=== PATIENT | female | born 1970 | race Caucasian/White ===

== ENCOUNTER 2016-08-23 05:38 | Observation (INO) ==
--- NOTE | 2016-08-23 05:43 | Emergency Department Note ---
Disposition Clinical Impression: Chest pain, rule out acute myocardial infarction Disposition: Admitted As Inpatient Condition: Good Referrals: Mary Mathur MD [Primary Care Provider] - Forms: ED Satisfaction Letter Chest Pain HPI - General Chief Complaint: ED Chest Pain Stated Complaint: cp Time Seen by Provider: 08/23/16 05:40 Vital Signs Reviewed: Yes Nursing Notes Reviewed: Yes - History of Present Illness HPI Narrative: Brittnee is a 45-year-old female with a history of Graves' disease status post thyroidectomy who presents emergency Department with a chief complaint of chest tightness. This started last night around midnight and has been waking her up through the night. Pain is bandlike around the chest, she thought it might be reflux and she took some acid blockers with no improvement. She has had no associated nausea, vomiting but did feel little bit sweaty. She had a stress test years ago but never a heart catheterization. No known history of coronary disease. She denies any shortness of breath. Denies any pain radiating into her back. Denies any abdominal pain. She is a active daily smoker. She does not have high blood pressure or diabetes. EMS provided 4 baby aspirins. - Related Data Home Medications Medication Instructions Recorded Confirmed Albuterol Sulfate [Proair Hfa] 1 puff IH Q6H PRN 11/02/15 06/20/16 Omeprazole [PriLOSEC] 20 mg PO DAILY 11/02/15 06/20/16 Tiotropium [Spiriva] 18 mcg IH DAILY 11/02/15 06/20/16 Tizanidine HCl [Zanaflex] 4 mg PO TID 11/02/15 06/20/16 Aspirin 81 mg PO DAILY 06/20/16 06/20/16 Ergocalciferol (VITAMIN D2) 50,000 unit PO MO 06/20/16 06/20/16 [Vitamin D2] Escitalopram [Lexapro] 10 mg PO DAILY 06/20/16 06/20/16 Gabapentin [Neurontin] 600 mg PO TID 06/20/16 06/20/16 Levothyroxine [Synthroid] 150 mcg PO DAILY 06/20/16 06/20/16 Previous Rx's Medication Instructions Recorded Aspirin Enteric Coated [Aspirin EC] 325 mg PO Q12H #30 tablet. 06/20/16 OxyCODONE Immed Rel [Roxicodone 5 5 - 10 mg PO Q6HR PRN #30 tablet 06/20/16 MG] Allergies Allergy/AdvReac Type Severity Reaction Status Date / Time Hydromorphone [From Dilaudid] AdvReac Nausea Verified 08/23/16 05:41 meperidine [From Demerol] AdvReac vomiting,fever, Verified 08/23/16 05:41 convulsions methimazole AdvReac swelling Verified 08/23/16 05:41 legs All systems ED: reviewed and negative except as stated. Constitutional: Denies: fever Cardiovascular: Reports: chest pain. Denies: dyspnea on exertion Respiratory: Denies: cough, dyspnea Gastrointestinal: Denies: abdominal pain, nausea, vomiting Musculoskeletal: Denies: back pain Neurological: Denies: headache, weakness, numbness Chest Pain PMH - Past Medical History Medical history: Reports: arthritis, cancer, GERD, kidney stones, thyroid disease, TIA, other Surgical history: Reports: cancer surgery, hysterectomy Psychiatric history: Reports: anxiety, depression CHIEF INFORMATION OFFICER history: Reports: no CHIEF INFORMATION OFFICER history - Social History Smoking Status: Current every day smoker Alcohol use: Reports: none Drug use: Reports: none Physical Exam General: Appears well, alert and oriented x 3, a bit anxious Cardiovascular: Regular rate and rhythm. S1, S2. No murmurs, rubs or gallops. Respiratory: Breath sounds clear bilaterally. No wheezing, rales or rhonchi. No resp distress Abdomen: Soft, nontender. No guarding, rebound or rigidity. Eyes: conjunctiva clear HENT: No oral mucosal lesions. Moist mucous membranes Neuro: No motor or sensory deficit. Musculoskeletal: There is no redness, swelling, edema, tenderness, asymmetry, pain along the venous system or any other sign of DVT. Skin: No lesions. No diaphoresis. Normal turgor. Normal color Psych: Appropriate but a bit anxious Course Course Narrative: Presents to the emergency department with abrupt onset chest tightness. No history of coronary disease but she does have peripheral vascular disease and has a stent in her right leg. She is also a smoker and obese. She had a stress test but it was years ago. She had associated diaphoresis and continued waking her from sleep. She thought it might be reflux and took medications but she had no improvement. With the patient's risk factors, symptoms and associated diaphoresis we feel it safest to admit the patient for a chest pain rule out. Her EKG showed no acute ischemic changes, chest x-ray clear, troponin is not elevated. The patient and family are comfortable with this plan. I discussed with the on-call hospitalist, Dr. Alexander who accepts for admission, no further orders at this time Vital Signs Temperature 97.5 F L 08/23/16 05:39 Pulse Rate 75 08/23/16 05:39 Respiratory Rate 18 08/23/16 05:39 Blood Pressure 128/76 08/23/16 05:39 O2 Sat by Pulse Oximetry 98 08/23/16 05:39 Temperature 97.5 F L 08/23/16 05:39 Pulse Rate 78 08/23/16 06:33 Respiratory Rate 16 08/23/16 06:33 Blood Pressure 118/82 08/23/16 06:33 O2 Sat by Pulse Oximetry 96 08/23/16 06:33 Chest Pain - Lab Data Result diagrams: 08/23/16 05:07 08/23/16 05:07 Lab Results 08/23/16 08/23/16 08/23/16 Range/Units 05:07 05:07 05:07 WBC 9.5 (4.3-11.1) K/mcL RBC 4.45 (3.82-4.97) M/mcL Hgb 14.3 (11.5-15.4) g/dL Hct 42.9 (35.3-44.9) % MCV 96.4 (83.0-100.0) fL MCH 32.1 (28.0-33.3) pg MCHC 33.3 (31.6-35.5) g/dL RDW 13.7 (11.5-14.5) % Plt Count 302 (140-400) K/mcL MPV 9.1 L (9.4-12.4) fL Immature Gran % 0.4 (0-4) % Seg Neutrophils % 66.7 % Lymphocytes % 25.4 % Monocytes % 4.8 % Eosinophils % 2.1 % Basophils % 0.6 % Neutrophils # 6.3 (1.6-8.9) K/mcL Lymphocytes # 2.4 (0.6-4.6) K/mcL Monocytes # 0.5 (0.0-1.3) K/mcL Eosinophils # 0.2 (0.0-0.6) K/mcL Basophils # 0.1 (0.0-0.2) K/mcL Sodium 139 (136-145) mEq/L Potassium 4.2 (3.5-4.5) mEq/L Chloride 106 (98-109) mEq/L Carbon Dioxide 21 (19-29) mEq/L BUN 12 (7-20) mg/dL Creatinine 0.88 (0.57-1.11) mg/dL Est GFR ( Amer) > 60 (> 60) Est GFR (Non-Af Amer) > 60 (> 60) BUN/Creatinine Ratio 14 (6-26) Glucose 108 H (70-99) mg/dL Calculated Osmolality 288 (280-300) Calcium 8.8 (8.6-10.8) mg/dL Troponin I 0.00 (0-0.03) ng/mL TSH 2.571 (0.350-4.840) mcIU/mL - EKG Data EKG results narrative: EKG shows sinus rhythm with a rate of 73 beats a minute. There is no ST elevation or depression. NH, QRS, QT interval within normal limits. Normal axis. Normal R-wave progression. Attestation Statement - Attestation Attestation: I, Cyrus Trejo MD, personally performed a history and physical exam of the patient and discussed their management with the resident. I reviewed the resident's note and agree with the documented findings, medical decision making , and plan of care. 45-year-old female presents to the emergency department with a complaint of awakening from sleep about midnight with some substernal chest pain. She took some Tums and was able to go back to sleep and Having pain off and on through the night. It woke her up she was very short of breath and diaphoretic with the pain. She describes the pain as a pressure in the lower substernal region. No radiation to the neck or jaw or down the arm. Some nausea but no vomiting. No relief with antiacids. She does have a history of peripheral vascular disease with stents. On examination patient is a well-developed well-nourished female in no acute distress. She is alert and oriented 3. There is no cyanosis or diaphoresis. Chest is nontender to palpation. Breath sounds are clear and equal bilaterally. Heart regular rate and rhythm. Abdomen soft and nontender with normal bowel sounds. No pedal edema. No acute changes on EKG. Chest x-ray negative. Labs reviewed and unremarkable. Troponin negative. The hospitalist, Dr. Leon, was consulted and accepted admission of the patient.
[2016-08-23 06:08] LABS: Basophils # 0.1 K/mcL (0.0-0.2); Basophils % 0.6 %; Eosinophils # 0.2 K/mcL (0.0-0.6); Eosinophils % 2.1 %; Hematocrit 42.9 % (35.3-44.9); Hemoglobin 14.3 g/dL (11.5-15.4); Immature Granulocytes % 0.4 % (0-4); Lymphocytes # 2.4 K/mcL (0.6-4.6); Lymphocytes % 25.4 %; Mean Corpuscular HGB Conc 33.3 g/dL (31.6-35.5); Mean Corpuscular Hemoglobin 32.1 pg (28.0-33.3); Mean Corpuscular Volume 96.4 fL (83.0-100.0); Mean Platelet Volume 9.1 fL (9.4-12.4); Monocytes # 0.5 K/mcL (0.0-1.3); Monocytes % 4.8 %; Neutrophils # 6.3 K/mcL (1.6-8.9); Platelet Count 302 K/mcL (140-400); Red Blood Count 4.45 M/mcL (3.82-4.97); Red Cell Distribution Width 13.7 % (11.5-14.5); Segmented Neutrophils % 66.7 %
[2016-08-23 06:17] LABS: BUN/Creatinine Ratio 14 (6-26); Blood Urea Nitrogen 12 mg/dL (7-20); Calcium 8.8 mg/dL (8.6-10.8); Carbon Dioxide 21 mEq/L (19-29); Chloride 106 mEq/L (98-109); Glucose 108 mg/dL (70-99); Osmolality,Calculated 288 (280-300); Potassium 4.2 mEq/L (3.5-4.5); Sodium 139 mEq/L (136-145); eGFR For African Americans > 60 (> 60); eGFR For Non-African Americans > 60 (> 60)
[2016-08-23 06:39] LABS: Thyroid Stimulating Hormone 2.571 mcIU/mL (0.350-4.840)
[2016-08-23] MEDS ORDERED: Naloxone 0.4 MG/ML INJ IVP PRN (08:02)
[2016-08-23] MEDS ORDERED: *HR* Morphine 2 MG/ML SYRINGE IVP PRN (08:02)
--- NOTE | 2016-08-23 08:12 | Internal Med History&Physical ---
Date of Encounter: 08/23/16 Time of Encounter: 08:07 Assessment and Plan (1) Chest pain, rule out acute myocardial infarction Status: Acute Chest pain: Admitted as observation. - cardiac diet. -ASA/BB/Statin - Echocardiogram -Pain control with morphine -We will resume home medication -If echocardiogram is normal then please consider stress test -If echocardiogram is abnormal and his consider cardiology evaluation (2) Atherosclerotic PVD with ulceration Status: Acute Was previously seen by vascular surgeon for same issue. She has a stent in her extremity. She does not have any ischemic toe at this point. Qualifiers: Peripheral atherosclerosis location: lower extremity Peripheral atherosclerosis artery type: [place] artery Lower extremity ulceration location : other part of foot Laterality: right Qualified Code(s): I70.235 - Atherosclerosis of [place] arteries of right leg with ulceration of other part of foot (3) Tobacco abuse Status: Chronic Still actively smoking Not keen to quit (4) DVT prophylaxis Status: Acute Heparin Medical decision making: This patient has a [id number] risk of worsening cardiac issues in spite of being on appropriate treatment Internal Medicine - H&P: HPI Chief complaint: chest pain Admitted From: Emergency Dept Plans for Post Hospital Care: Home History of present illness: PCP: Dr. Mathur Brief past medical history: Hypertension, depression, long-standing back pain, morbid obesity History of present illness: The patient was complaining of precordial chest pain since midnight. The pain is sharp in nature, nonradiating, localized, worsening with the respiration and relieved by rest. Patient denies palpitation , dizziness, nausea, vomiting, abdominal pain and diarrhea. Patient is a strong family history of premature coronary artery disease. Course in the emergency room: Patient was evaluated in the emergency room. Basic labs were drawn. White count is normal, creatinine is normal along with troponin.. Reason for admission: Chest pain to rule out ACS. Family history: Noncontributory Past Med Surg Social Fam HX - Past Medical History Medical history: arthritis, cancer, GERD, kidney stones, thyroid disease, TIA, other Psychiatric history: anxiety, depression - Past Surgical History Surgical History: cancer surgery, hip replacement, hysterectomy, thyroidectomy, IVC filter - Social History Smoking Status: Current every day smoker Packs per day: 1.5 Smokeless Tobacco Status: No Alcohol use: none Drug use: none - Family History Father Living Status: Hx Family Cardiac Disorders: No Hx Family Respiratory Disorders: No Hx Family Cancer: Yes Hx Family GI Disorders: No Hx Family Endocrine Disorder: No Hx Family Neuromuscular Disorders: Yes Hx Family Neurologic Disorders: No Hx Family HEENT Disorders: No Hx Family Autoimmune Disorders: No Internal Medicine - H&P: Meds Albuterol Sulfate [Proair Hfa] 1 puff IH Q6H PRN 11/02/15 [History] Omeprazole [PriLOSEC] 20 mg PO DAILY 11/02/15 [History] Tizanidine HCl [Zanaflex] 4 mg PO TID PRN 11/02/15 [History] Aspirin 81 mg PO DAILY 06/20/16 [History] Ergocalciferol (VITAMIN D2) [Vitamin D2] 50,000 unit PO TU 06/20/16 [History] Albuterol Neb [Proventil Neb] 2.5 mg IH Q4HR PRN 08/23/16 [History] Escitalopram [Lexapro] 20 mg PO DAILY 08/23/16 [History] Levothyroxine Sodium [Levo-T] 200 mcg PO DAILY 08/23/16 [History] Pregabalin [Lyrica] 75 mg PO BID 08/23/16 [History] Allergies Hydromorphone [From Dilaudid] Adverse Reaction (Verified 08/23/16 05:41) Nausea meperidine [From Demerol] Adverse Reaction (Verified 08/23/16 05:41) vomiting,fever, convulsions methimazole Adverse Reaction (Verified 08/23/16 05:41) swelling legs All Systems PM: A 10-system review of systems was performed and is negative for pertinent findings except as documented above in the HPI. - Constitutional Constitutional: no chills, no fever(s), no night sweats - EENT Eyes: no change in vision, no discharge, no pain, no photophobia Ears: no ear discharge, no ear pain, no tinnitus Nose, mouth and throat: no dysphagia, no nasal discharge, no neck pain, no sore throat - Cardiovascular Cardiovascular ROS IM: chest pain, diaphoresis, no dyspnea, no lightheadedness, no palpitations, no syncope - Respiratory Respiratory: no cough, no dyspnea, no wheezing, no excessive phlegm production - Gastrointestinal Gastrointestinal: no abdominal pain, no diarrhea, no hematemesis, no hematochezia, no melena, no nausea, no vomiting - Genitourinary Genitourinary: no change in urinary stream, no dysuria, no flank pain, no hematuria - Musculoskeletal Musculoskeletal ROS IM: no numbness, no tingling - Integumentary Integumentary IM: no rash, no unusual bruising - Neurological Neurological ROS: no confusion, no convulsions, no focal weakness, no numbness, no tingling, no tremor(s) - Hematologic/Lymphatic Hematologic/Lymphatic: no easy bruising - Constitutional Vitals: Temp Pulse Resp BP Pulse Ox 97.4 F L 79 17 120/67 95 08/23/16 07:42 08/23/16 07:42 08/23/16 07:42 08/23/16 07:42 08/23/16 07:42 General appearance: Present: A&O X 3, morbidly obese, pleasant, no acute distress, answers questions appropriately - Head Head exam: Present: atraumatic, normocephalic - Eye Eye exam: Present: PERRL, conjuntiva pink, sclera anicteric Pupils: Present: PERRL - Neck Neck exam general surgery: Present: supple, trachea midline. Absent: lymphadenopathy - Respiratory Respiratory exam: Present: CTAB. Absent: accessory muscle use, rales, rhonchi, wheezes - Cardiovascular Cardiovascular exam: Present: RRR, +S1, +S2. Absent: diastolic murmur, gallop, rubs, systolic murmur - GI/Abdominal GI/Abdominal exam: Present: normal bowel sounds, soft, no peritoneal signs. Absent: distended, tenderness - Extremities Exam Extremities exam: Present: warm, radial pulses palpable and symetrical. Absent : calf tenderness, cyanotic, pedal edema - Neurological Exam Neurological exam: Present: CN II-XII intact, oriented X3, no focal deficits. Absent: pronater drift, facial droop, speech deficit - Skin Skin exam: Present: dry, intact Internal Med - H&P Results - Labs CBC & Chem 7: 08/23/16 05:07 08/23/16 05:07
[2016-08-23] MEDS ORDERED: Pregabalin 75 MG CAPSULE PO SCH (09:00)
[2016-08-23] MEDS ORDERED: Aspirin 81 MG TAB.CHEW PO SCH (09:00)
--- NOTE | 2016-08-23 11:55 | Electrocardiograph Report ---
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
[2016-08-23 15:09] VITALS: BP 115/79
--- NOTE | 2016-08-23 16:48 | ECHO - Doppler Report ---
Echocardiogram Name: Brittnee Green Date of Study: 08/23/2016 Date: 1970 Ht: 68.0 in Medical Record#: [id number] Age: 45 Wt: 265.0 lb Gender: Female BSA: 2.3 Order #: [id number] Location: [facility] Room #: [id number] Reading Physician: Joseph Mcclure DO, MANUELA, TONIO RUBI Wool Puller: Susan Olivera Ordering Physician: Homero Zepeda MD Primary Physician: Mary Mathur MD Indications: Chest pain Impressions: LVEF 60-65%. Normal LV chamber size, wall thickness and function. Normal left ventricular diastolic function. Normal right ventricular structure and function. No evidence of pulmonary hypertension. No significant valvular dysfunction. Left Ventricular Wall Motion: Rest Echo Findings All wall segments showed normal motion. Findings: Study Quality * Technically adequate exam. ECG Findings * Normal sinus rhythm. Left Ventricle * LVEF 60-65%. * Normal LV chamber size, wall thickness and function. * Normal left ventricular diastolic function. Right Ventricle * Normal right ventricular structure and function. Left Atrium * Mildly dilated left atrium. Right Atrium * Mildly dilated right atrium. Interatrial Septum * Interatrial septum not well evaluated. Aortic Valve * Trileaflet aortic valve with normal function. * No aortic stenosis. * No aortic regurgitation. Mitral Valve * Normal mitral valve structure and function. * No mitral regurgitation. * No mitral stenosis. Tricuspid Valve * Normal tricuspid valve structure and function. * Trace tricuspid regurgitation. * No evidence of pulmonary hypertension. Pulmonic Valve * Pulmonic valve not well visualized. * No pulmonic regurgitation. Aorta * Normally sized aortic root. Pericardium * The pericardium appears normal. IVC * Normal IVC dimensions and inspiratory collapse. Pulmonary Artery * Pulmonary artery not well visualized. History History of Smoking Years 35 Packs 1.5 Family History of CAD 12/07/2015 a Previous Echo was performed. Measurements: BP: 115/ 79 2D Normal Values RVIDd: 2.30 cm <2.7 cm IVSd: 1.00 cm 0.6 - 1.0 cm LVIDd: 4.20 cm 3.7 - 5.6 cm LVPWd: 1.00 cm 0.6 - 1.1 cm LVIDs: 2.95 cm 1.5 - 3.6 cm AO: 2.80 cm < 4.0 cm LA: 4.10 cm 2.0 - 4.0cm %FS: 28.60 cm >25 % LA volume: 71 Mitral Valve Peak E:.96 m/sec Peak A:.57 m/sec E/A Ratio:1.7 Peak E' Lat Cale:9.75 cm/s Peak E' Med Cale:8.09 cm/s E/E' Lat Ratio:9.8 E/E' Med Ratio:11.8 Tricuspid Valve TV Regurg Peak Grad: 15.00mmHg TV Regurg Peak Cale: 1.94m/sec Updated by Joseph Mcclure DO, MAUNELA, TONIO RUBI on 08/23/2016 4:45:07 PM electronically signed on 08/23/2016 4:45:26 PM with status of Final Wall Motion Carrillo: 1=Normal, 2=Hypokinesis, 3=Akinesis, 4=Dyskinesis, 5=Aneurysmal, 6=Hyperkinetic, X=Not Visualized (Blank)=Missing
[2016-08-23] MEDS ORDERED: *HR* Heparin 5,000 UNIT/ML VIAL SQ SCH (18:00)
== END 2016-08-23 16:56 | disposition left against medical advice (07) ==
LOC: EMEROO 05:38 → 3BNU 05:38
PROVIDERS: ADMIT Nurse Practitioner Family; ATTEND Nurse Practitioner Family

== ENCOUNTER 2017-06-12 13:54 | Inpatient (IN) ==
[2017-06-12] MEDS ORDERED: CeFAZolin Syr 3,000MG/30 ML 3,000 MG/30 ML SYRINGE IVPB ONE (14:25)
[2017-06-12] MEDS ORDERED: Albuterol 2.5 MG/3 ML NEBULIZER IH ONE (14:25)
[2017-06-12] MEDS ORDERED: Ringers Solution, Lactated 1,000 ML IVC SCH ×2 (14:30→19:54)
--- NOTE | 2017-06-12 15:25 | Anesthesia Evaluation PreOp ---
Date of Encounter: 06/12/17 Time of Encounter: 15:23 - Past History Planned Operation: left hip acetabular revision Cardiac History: Other (PVD) Pulmonary History: Smoker, Pack/yr (30+), COPD ASSISTANT PROFESSOR OF PHYSICS History: TIA, Other (familiar tremors) Other Medical History: Thyroid (hypo), GERD, Other (morbid obesity) Anesthesia History: No Prior Anesthetic Complications (hand, tubal, JAZZMINE, stent right leg, thyroidectomy), Past Anesthesia, Problems (1x had PONV) Alcohol Use: none Drug use: none Medications and Allergies Albuterol Sulfate [Proair Hfa] 1 puff IH Q4H PRN 11/02/15 [History] Omeprazole [PriLOSEC] 20 mg PO DAILY 11/02/15 [History] Tizanidine HCl [Zanaflex] 4 mg PO TID PRN 11/02/15 [History] Aspirin 81 mg PO DAILY 06/20/16 [History] Escitalopram [Lexapro] 20 mg PO DAILY 08/23/16 [History] Levothyroxine Sodium [Levo-T] 200 mcg PO DAILY 08/23/16 [History] Cholecalciferol (D-3) [Vitamin D] 2,000 unit PO DAILY 06/12/17 [History] Ipratropium/Albuterol Neb [Duoneb] 3 ml IH Q4HR 06/12/17 [History] Primidone [Mysoline] 50 mg PO HS 06/12/17 [History] Simvastatin [Zocor] 20 mg PO HS 06/12/17 [History] 3 Allergy/AdvReac Type Severity Reaction Status Date / Time Hydromorphone [From Dilaudid] AdvReac Nausea Verified 06/12/17 14:33 meperidine [From Demerol] AdvReac vomiting,fever, Verified 06/12/17 14:33 convulsions methimazole AdvReac swelling Verified 06/12/17 14:33 legs - Meds/Allergy Pre-op Review Medications Reviewed: Yes Allergies Reviewed: Yes Beta Blockers on Current Med List: No Anesthesia Results - Imaging Additional studies: stress test 09/06: Impression: Perfusion imaging was negative for ischemia or infarct. Pharmacologic ECG was negative for ischemia at the level of heart rate achieved. Gated EF = 70%. Anesthesia Exam Selected Entries 06/12/17 14:29 Temperature 97.9 F Pulse Rate 83 Respiratory Rate 18 Blood Pressure 130/73 O2 Sat by Pulse Oximetry 96 Weight: 129kg BMI43 NPO (# of Hours): 8 - HEENT Pupil (Motor): EOMI Mallampati: III Teeth: Edentulous (upper) Denture Type: Upper: Complete Oral Opening: Greater than 3 - ASSISTANT PROFESSOR OF PHYSICS LOC: Oriented ASSISTANT PROFESSOR OF PHYSICS Motor: Normal RUE, Normal LUE, Normal RLE, Normal LLE, Normal Face ASSISTANT PROFESSOR OF PHYSICS Sensory: Normal: RUE, LUE, RLE, LLE, Face - Cardiac Rhythm: Regular Murmur: None - Pulmonary Breath Sounds: bilateral Clear Respiratory Effort: Symmetrical Anesthesia Assess/Plan ASA Score: 3 Modified Mo Scale for Level of Consciousness: Cooperative, oriented, and tranquil Anesthetic Plan: General Monitoring Plan: Standard Monitors Recovery Plan: PACU (agrees to GA)
--- NOTE | 2017-06-12 15:30 | History & Physical Report ---
Date of Encounter: 06/12/17 Time of Encounter: 15:30 24 Hour HP Update - Instructions Instructions: If the History and Physical is less than 30 days old and was completed prior to A.M. admission and or procedure and has NOT been updated on calendar day of procedure please complete this update prior to performing procedure. - Update Patient reports changes in Medical Condition: No Changes in examination, assessment, or condition: No Changes in Medication: No Preop tests/diagnostics Reviewed: Yes Surgery Remains Indicated: Yes Consent for Planned Operative Procedure(s) Verified: Yes - Pre-Operative Checklist Preoperative Checklist Indicated: No Prophylactic Antibiotic Ordered: Yes Is VTE Prophylaxis Indicated?: Yes
[2017-06-12] MEDS ORDERED: Scopolamine Patch 1.5 MG PATCH.TD72 TD ONE (15:32)
[2017-06-12] MEDS ORDERED: *HR* FentaNYL (PF) 100 MCG/2 ML VIAL ONE (16:14)
[2017-06-12] MEDS ORDERED: *HR* Propofol 200 MG/20 ML VIAL IVP ONE (16:14)
[2017-06-12] MEDS ORDERED: *HR* Midazolam HCl 2 MG/2 ML VIAL ONE (16:15)
[2017-06-12] MEDS ORDERED: Ethanol\\Acetic Acid\\Na Ace\\Ben 1,000 ML IRRIG.SOLN IR ONE (16:16)
[2017-06-12] MEDS ORDERED: EPHEDrine 50 MG/ML VIAL ONE (17:12)
[2017-06-12] MEDS ORDERED: *HR* Morphine 10 MG/ML VIAL ONE (17:17)
[2017-06-12] MEDS ORDERED: Lidocaine -MPF 4% 5 ML AMPUL ONE (17:18)
[2017-06-12] MEDS ORDERED: *HR* Succinylcholine 200 MG/10 ML VIAL IVP ONE (17:18)
[2017-06-12] MEDS ORDERED: Dexamethasone 4 MG/ML VIAL ONE (17:18)
[2017-06-12] MEDS ORDERED: Lidocaine -MPF 2% 2 ML VIAL ONE (17:18)
[2017-06-12] MEDS ORDERED: Ondansetron 4 MG/2 ML VIAL ONE (17:18)
[2017-06-12] MEDS ORDERED: Ondansetron 4 MG/2 ML VIAL IVP ONE (17:22)
[2017-06-12] MEDS ORDERED: *HR* Promethazine 25 MG/ML VIAL IVP PRN (17:22)
[2017-06-12] MEDS ORDERED: *HR* Morphine 2 MG/ML SYRINGE IVP PRN ×2 (17:22→19:54)
[2017-06-12] MEDS ORDERED: *HR* Rocuronium Bromide 50 MG/5 ML VIAL ONE (17:35)
[2017-06-12] MEDS ORDERED: *HR* Enoxaparin 30 MG/0.3 ML SYRINGE SQ SCH (18:00)
--- NOTE | 2017-06-12 18:09 | Orthopedic Operative Note ---
Date of procedure: 06/12/17 Pre-op diagnosis: Hardware failure left acetabular metal liner Post-op diagnosis: same Procedure: Procedure: Left Total Hip Replacment acetabular revision Estimated blood loss: 200 cc Hardware: Metal and polyethylene replacement. 36 high wall size F liner Head: 36+9 head History of present illness: Patient was seen in the office shows a by the PA. The patient was presenting with left hip pain. X-rays were obtained and showed an abnormality different than her previous x-rays. Abnormality was consistent with loss of fixation of the metal acetabular liner. Patient was indicated for urgent surgery to avoid further complications. Procedural Notes: Loose displaced metal acetabular liner Operative procedure: The patient was brought to the operating room and placed on the operating room table. After general anesthesia was administered the patient was placed in the lateral decubitus position with the operative leg up. All pressure points were padded appropriately and the head was stabilized in the neutral position. The left operative extremity was prepped and draped in the sterile surgical fashion patient received IV antibiotic prior to skin incision. A standard posterior approach is made to the operative hip, the incision was made through the old incision through the skin and subcutaneous tissue hemostasis was obtained with Bovie cautery. Using careful sharp dissection the fascia was identified and incised patient had extensive scar tissue in the posterior aspect of this was excised. The hip was exposed. And then dislocated, the femoral head and Larissa were removed. The metal liner was loose and removed with a coworker clamp without difficulty. Extensive soft tissue was removed from around the acetabular cup. An attempt was made to engage a new metal liner which was unsuccessful. Decision was made to use a Larissa liner. After the acetabulum was cleaned a 36 high wall liner was impacted in place with the high wall posterior inferior. All reduction revealed excellent motion and stability with a +9 36 head. The trial was removed and the real implant was impacted in place. The hip was reduced, patient had apparent equal leg lengths. The hip had excellent stability with forward flexion to 90 degrees adduction of 30 degrees and internal rotation of 60 degrees. The hip had no shuck. The hips after 2 minutes with a Betadine saline solution. It was irrigated out with 2 L of pulse irrigation. Fascia was closed with a running #2 PDS suture. The deep tissue was irrigated and closed deep with #1 PDS suture superficially with 0 PDS suture and skin was closed with Zip line and skin kei. The patient was placed in a sterile dressing and abduction pillow. The patient was extubated and transferred to the recovery room in stable condition. Anesthesia: GETA Surgeon: Harry Mchugh Condition: stable Disposition: PACU
--- NOTE | 2017-06-12 18:54 | Anesthesia Evaluation Post Op ---
Date of Encounter: 06/12/17 Time of Encounter: 18:54 - Vital Signs Vital Signs: Selected Entries 06/12/17 18:41 06/12/17 18:51 Temperature 97.3 F L Pulse Rate 100 Respiratory Rate 22 Blood Pressure 133/73 O2 Sat by Pulse Oximetry 95 Oxygen Flow Rate (LPM) 2 - Lungs Lungs: Clear Ascult./Percussion - Airway Airway: Non-obstructed - Cardiovascular Regular Rate - Mental Status Mental Status: Alert & Oriented, Answers Appropriately - Pain Pain Scale: 3 Pain Scale used: Numeric (1 - 10) - Nausea Vomiting Nausea Vomiting: Not Present - Hydration Hydration: Ice chips, Has not voided - Discharge PostOp Status: Transfer Patient to floor
[2017-06-12] MEDS ORDERED: Temazepam 15 MG CAPSULE PO PRN (19:54)
[2017-06-12] MEDS ORDERED: Sennosides 8.6 MG TABLET PO PRN (19:54)
[2017-06-12] MEDS ORDERED: *HR* OxyCODONE Immed Rel 5 MG TABLET PO PRN (19:54)
[2017-06-12] MEDS ORDERED: tiZANidine 4 MG TABLET PO PRN (19:54)
[2017-06-12] MEDS ORDERED: Naloxone 0.4 MG/ML INJ IVP PRN (19:54)
[2017-06-12] MEDS ORDERED: MOM Conc 10 ML UD.LIQ PO PRN (19:54)
[2017-06-12] MEDS ORDERED: Ondansetron 4 MG/2 ML VIAL IVP PRN (19:54)
[2017-06-12] MEDS: Ipratropium/Albuterol Neb 3 ML IH SCH ×2 (20:20→23:15)
[2017-06-12] MEDS: *HR* OxyCODONE Immed Rel 5 MG TABLET PO PRN (20:37)
[2017-06-12] MEDS ORDERED: Primidone 50 MG TABLET PO SCH (21:00)
[2017-06-13] MEDS: *HR* OxyCODONE Immed Rel 5 MG TABLET PO PRN ×2 (01:41→08:49)
[2017-06-13] MEDS: CeFAZolin Syr 3,000MG/30 ML 3,000 MG/30 ML SYRINGE IVPB SCH ×2 (02:03→08:49)
[2017-06-13] MEDS: Ipratropium/Albuterol Neb 3 ML IH SCH ×3 (03:27→11:51)
[2017-06-13 04:30] LABS: Hematocrit 40.4 % (35.3-44.9); Hemoglobin 13.3 g/dL (11.5-15.4)
[2017-06-13 05:06] LABS: BUN/Creatinine Ratio 15 (6-26); Blood Urea Nitrogen 12 mg/dL (6-20); Calcium 8.1 mg/dL (8.6-10.3); Carbon Dioxide 25 mEq/L (23-29); Chloride 105 mEq/L (98-107); Glucose 192 mg/dL (70-105); Osmolality,Calculated 281 (280-300); Potassium 4.9 mEq/L (3.5-5.1); Sodium 133 mEq/L (136-145); eGFR For African Americans > 60 (> 60); eGFR For Non-African Americans > 60 (> 60)
[2017-06-13] MEDS ORDERED: *HR* Enoxaparin 30 MG/0.3 ML SYRINGE SQ SCH (06:00)
[2017-06-13] MEDS ORDERED: Ascorbic Acid 500 MG TABLET PO SCH (08:00)
[2017-06-13 08:07] VITALS: BP 122/75
--- NOTE | 2017-06-13 08:14 | Discharge Summary ---
Date of Encounter: 06/13/17 Time of Encounter: 08:17 - Discharge Diagnosis (1) Failed hardware Priority: Primary Status: Acute (2) Left hip pain Priority: Primary Status: Acute (3) Status post revision of total hip Priority: Primary Status: Acute (4) Graves disease Priority: Secondary Status: Chronic (5) Tobacco abuse Priority: Secondary Status: Chronic (6) Atherosclerotic PVD with ulceration Priority: Secondary Status: Chronic Qualifiers: Peripheral atherosclerosis location: unspecified extremity Qualified Code(s ): I70.25 - Atherosclerosis of [place] arteries of other extremities with ulceration - Discharge Medications Home Medications: Albuterol Sulfate [Proair Hfa] 1 puff IH Q4H PRN 11/02/15 [History] Omeprazole [PriLOSEC] 20 mg PO DAILY 11/02/15 [History] Tizanidine HCl [Zanaflex] 4 mg PO TID PRN 11/02/15 [History] Escitalopram [Lexapro] 20 mg PO DAILY 08/23/16 [History] Levothyroxine Sodium [Levo-T] 200 mcg PO DAILY 08/23/16 [History] Cholecalciferol (D-3) [Vitamin D] 2,000 unit PO DAILY 06/12/17 [History] Ipratropium/Albuterol Neb [Duoneb] 3 ml IH Q4HR 06/12/17 [History] Primidone [Mysoline] 50 mg PO HS 06/12/17 [History] Simvastatin [Zocor] 20 mg PO HS 06/12/17 [History] Aspirin Enteric Coated [Aspirin EC] 325 mg PO BID #20 tablet. 06/13/17 [Rx] OxyCODONE Immed Rel [Roxicodone 5 MG] 5 mg PO Q4HR PRN #24 tablet 06/13/17 [Rx] Allergies/Adverse Reactions: 3 Allergy/AdvReac Type Severity Reaction Status Date / Time Hydromorphone [From Dilaudid] AdvReac Nausea Verified 06/12/17 14:33 meperidine [From Demerol] AdvReac vomiting,fever, Verified 06/12/17 14:33 convulsions methimazole AdvReac swelling Verified 06/12/17 14:33 legs Labs on day of discharge: Labs from last 24 hours 06/13/17 06/13/17 04:19 04:19 Hgb 13.3 Hct 40.4 Sodium 133 L Potassium 4.9 Chloride 105 Carbon Dioxide 25 BUN 12 Creatinine 0.80 Est GFR ( Amer) > 60 Est GFR (Non-Af Amer) > 60 BUN/Creatinine Ratio 15 Glucose 192 H Calculated Osmolality 281 Calcium 8.1 L - Impressions ITS Impressions Hip X-Ray 06/12/17 15:31 IMPRESSION: Total hip arthropasty without acute hardware complication. D/ / Irwin Beaulieu MD / Irwin Beaulieu MD Interpreting Provider: Irwin Beaulieu MD Date of admission: 06/12/17 19:49 Primary care physician: Saul Adams Consults: 06/12/17 19:54 Consult to Nurse Navigator [CONS] Routine Comment: ortho navigator Consult to Occupational Therapy [CONS] Routine Comment: Evaluate, develop and implement POC Reason for Consult: total hip replacement Consult to Physical Therapy [CONS] Routine Comment: Evaluate, develop and implement POC Reason for Consult: total hip replacement Consult to Match Maker [CONS] Routine Reason for SW Consult: post op joint replacement RT Post Op Consult [CONS] Routine - Patient Status Disposition: Home, Self-Care Condition: Good Functional capacity at discharge: uses cane/walker Overall status at discharge: patient is progressing back to baseline - Discharge Instructions Follow Up With: Saul Adams, PAC [Primary Care Provider] - - Hospital Course Hospital course: Ms. Green is a 46 year old female Status post revision left hip. The patient had an uneventful postoperative course. They received antibiotics and physical therapy and were discharged in stable condition. There will follow -up in the office in 2 weeks. - Time Spent with Patient Total time spent providing and/or coordinating discharge services: - VTE Documentation of Mechanical Device: Venous foot pump, device
--- NOTE | 2017-06-13 08:18 | Orthopedics Progress Note ---
Date of Encounter: 06/13/17 Time of Encounter: 08:17 - Assessment and Plan (1) Failed hardware Current Visit: Yes Status: Acute (2) Left hip pain Current Visit: Yes Status: Acute (3) Status post revision of total hip Current Visit: Yes Status: Acute (4) Graves disease Current Visit: No Status: Chronic (5) Tobacco abuse Current Visit: No Status: Chronic (6) Atherosclerotic PVD with ulceration Current Visit: No Status: Chronic Qualifiers: Peripheral atherosclerosis location: unspecified extremity Qualified Code(s ): I70.25 - Atherosclerosis of [place] arteries of other extremities with ulceration Subjective Interval history: Patient was seen this morning doing well without complaints. Afebrile vital signs stable. Operative extremity: Neurovascularly intact Dressing clean dry and intact Calves nontender Assessment and plan: Continue with postoperative care Hematocrit 40 discharged today Objective Vital signs: Vital Signs Temp Pulse Resp BP Pulse Ox 06/13/17 08:10 18 95 06/13/17 08:05 98.8 F 87 18 122/75 95 06/13/17 04:38 98.0 F 80 16 118/74 95 06/13/17 00:04 97.6 F 97 16 123/80 94 06/12/17 20:30 97.6 F 91 20 108/72 94 06/12/17 20:20 16 95 06/12/17 19:30 97.9 F 90 14 119/78 95 06/12/17 19:01 90 20 132/64 96 06/12/17 18:51 100 22 133/73 95 06/12/17 18:41 97.3 F L 102 24 118/74 95 06/12/17 18:31 106 24 144/74 95 06/12/17 18:21 102 26 133/53 96 06/12/17 18:11 97.9 F 105 25 134/69 96 06/12/17 14:29 97.9 F 83 18 130/73 96 Intake and Output 06/12/17 06/13/17 06/13/17 23:59 07:59 15:59 Intake Total 270 / 270 400 / 400 Output Total 200 / 200 350 / 350 150 / 150 Balance 70 / 70 50 / 50 -150 / -150 Intake: IV Fluids 30 / 30 Ancef Syringe 3,000 MG/30 ML 3, 30 / 30 000 mg In 30 ml @ 200 mls/hr IVPB PREOP ONE Rx#:[id number] Oral 240 / 240 400 / 400 Output: Urine 350 / 350 150 / 150 Estimated Blood Loss 200 / 200 - Labs CBC & BMP: 06/13/17 04:19 06/13/17 04:19 Labs: Abnormal lab results Sodium 133 mEq/L (136-145) L 06/13/17 04:19 Glucose 192 mg/dL (70-105) H 06/13/17 04:19 Calcium 8.1 mg/dL (8.6-10.3) L 06/13/17 04:19 - VTE Documentation of Mechanical Device: Venous foot pump, device Consult Discharge Plan - Plan Referrals: Saul Adams, PAC [Primary Care Provider] - Prescriptions: Aspirin Enteric Coated [Aspirin EC] 325 mg PO BID #20 tablet.dr [email or web address] Immed Rel [Roxicodone 5 MG] 5 mg PO Q4HR PRN #24 tablet PRN Reason: Pain
[2017-06-13] MEDS ORDERED: Aspirin 81 MG TAB.CHEW PO SCH (09:00)
[2017-06-13] MEDS ORDERED: Multivit/Ca/Min/Fe/FA 1 TAB TABLET PO SCH (09:00)
[2017-06-13] MEDS ORDERED: Cholecalciferol (D-3) 1,000 UNIT TABLET PO SCH (09:00)
[2017-06-13] MEDS ORDERED: FLUARIX QUAD 2017-18 36MOS UP/PF 0.5 ML SYRINGE IM ONE (11:17)
== END 2017-06-13 12:15 | disposition home or self-care (01) | DRG 467 ==
LOC: SAMDAY 13:54 → 3NENU 19:49
PROVIDERS: ADMIT Orthopaedic Surgery; ATTEND Orthopaedic Surgery

== ENCOUNTER 2018-11-03 04:54 | Inpatient (IN) ==
--- NOTE | 2018-11-03 05:06 | Emergency Department Note ---
Disposition Clinical Impression: Right femoral fracture Qualifiers: Encounter type: initial encounter Femur location: unspecified portion of femur Fracture type: closed Fracture morphology: unspecified fracture morphology Qualified Code(s): S72.91XA - Unspecified fracture of right femur, initial encounter for closed fracture Disposition: Admitted As Inpatient Condition: Good Forms: ED Satisfaction Letter Time of Disposition: 06:51 General Adult HPI - General Chief complaint: ED Extremity Problem,Nontraumatic Stated complaint: Rt hip pain Time Seen by Provider: 11/03/18 04:55 Source: patient, family Mode of arrival: EMS Limitations: no limitations Nursing Notes Reviewed: Yes Vital Signs Reviewed: Yes - History of Present Illness HPI Narrative: 48-year-old female with history of right hip replacement approximately 5 years prior, with recent surgery on the hip October 07 for infection inside the joint. Patient has been on vancomycin therapy since then through her PICC line in her right arm. Patient got up to use the bathroom this evening and felt a pop and then experienced immediate pain afterwards. She is describing her pain as right sided inside" the capsule", it is sharp, 8 out of 10 in severity. Patient took a Percocet 5 around 10:30 last evening. She is endorsing a mild headache, intermittent fevers and chills off and on chronically, some nausea occasionally, diarrhea which she attributes to a recent increase in her vancomycin dosing. She reports that all of her surgeries happened at this facility. - Related Data Home Medications Medication Instructions Recorded Confirmed Albuterol Sulfate [Proair Hfa] 1 puff IH Q4H PRN 11/02/15 10/07/18 Escitalopram [Lexapro] 20 mg PO DAILY 08/23/16 10/07/18 Levothyroxine Sodium [Levo-T] 200 mcg PO DAILY 08/23/16 10/07/18 Simvastatin [Zocor] 20 mg PO HS 06/12/17 10/07/18 Cyclobenzaprine [Flexeril] 10 mg PO TID PRN 06/17/18 10/07/18 Ergocalciferol (VITAMIN D2) 50,000 unit PO MO 06/17/18 10/07/18 [Vitamin D2] Furosemide [Lasix] 20 mg PO DAILY 06/17/18 10/07/18 GlipiZIDE [Glipizide Xl] 5 mg PO DAILY 06/17/18 10/07/18 Meloxicam [Mobic] 15 mg PO DAILY 06/17/18 10/07/18 Omeprazole [PriLOSEC] 40 mg PO BID 06/17/18 10/07/18 Oxycodone HCl/Acetaminophen 1 tab PO TID PRN 06/17/18 10/07/18 [Percocet 5-325 mg Tablet] Aspirin [Adult Aspirin] 81 mg PO DAILY 07/16/18 10/07/18 Gabapentin [Neurontin] 600 mg PO BID 07/16/18 10/07/18 Liraglutide [Victoza 2-Maximiliano] 0.6 mg SQ DAILY 07/16/18 10/07/18 Previous Rx's Medication Instructions Recorded Levofloxacin [Levaquin] 750 mg PO DAILY #1 tablet 10/12/18 Meloxicam [Mobic] 15 mg PO DAILY tablet 10/12/18 Rifampin [Rifadin] 300 mg PO TID #168 capsule 10/12/18 Vancomycin [Vancocin (wt based)] 2,000 mg IV Q12H #84 vial 10/12/18 levoFLOXacin [Levaquin] 750 mg PO DAILY #1 tablet 10/12/18 Allergies Allergy/AdvReac Type Severity Reaction Status Date / Time hydromorphone [From Dilaudid] AdvReac Nausea Verified 10/07/18 11:40 meperidine [From Demerol] AdvReac vomiting,fever, Verified 10/07/18 11:40 convulsions methimazole AdvReac swelling Verified 10/07/18 11:40 legs Review of Systems: All systems ED: reviewed and negative except as stated. Constitutional: Reports: intermittent fever, chills ENT ED: Denies: ear pain, throat pain Cardiovascular: Denies: chest pain, palpitations Respiratory: Denies: cough, dyspnea Gastrointestinal: Denies: abdominal pain, nausea, vomiting, constipation Reports: diarrhea Genitourinary: Denies: urgency, dysuria, frequency Musculoskeletal: Denies: back pain, neck pain Reports: R hip pain Integumentary: Denies: rash, abrasion Neurological: Denies: weakness, numbness, paresthesias Reports: headache Psychiatric: Denies: anxiety, depression Endocrine: Denies: fatigue, heat or cold intolerance Hematological/Lymphatic: Denies: easy bleeding, easy bruising Allergic/Immunologic: Denies: facial swelling, urticaria Past Medical History - Past Medical History Attestation: Yes The following information was validated with the patient. 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 No acute distress. Well developed, well nourished. Head: atraumatic, normocephalic. ENT: No conjunctival injection, no scleral icterus. PERRLA. EOMI. Oropharynx non- erythematous. mucous membranes moist. Linear scar across sternal notch. Neuro: No focal deficits, no speech deficit, no facial droop, mentating well. BUE/BLE Str 5/5. Pulm: Lungs CTAB A/P. No wheezes, rales, ronchi. Cardio: RRR no m/r/g. Chest not tender to palpation. Abd: Soft, non-distended. Normoactive bowel sounds. Non-tender to palpation. No guarding. Non rigid. Extremities: Radial pulses 2+ krishna, dorsalis pedis/posterior tibialis 1+ krishna. No LE edema. No cyanosis, clubbing. Pain at right hip joint. Leg not shortened or rotated. Skin: warm, dry, intact. No rashes. Psych: Appropriate mood and affect. Answers questions appropriately. Cooperative with exam. Course Course Narrative: Ddx includes but is not limited to: Hip fracture, hardware failure Workup will include: R hip xr Vital Signs Temperature 98.8 F 11/03/18 05:00 Pulse Rate 108 11/03/18 05:00 Respiratory Rate 16 11/03/18 05:00 Blood Pressure 129/96 11/03/18 05:00 O2 Sat by Pulse Oximetry 96 11/03/18 05:00 Temperature 98.8 F 11/03/18 05:00 Pulse Rate 108 11/03/18 05:00 Respiratory Rate 16 11/03/18 05:00 Blood Pressure 129/96 11/03/18 05:00 O2 Sat by Pulse Oximetry 96 11/03/18 05:00 Oxygen Delivery Oxygen Delivery Room Air Medical Decision Making - [facility] Narrative Medical decision making narrative: X-ray showed a periprosthetic subtrochanteric femur fracture of the right femur. Dr. Mchugh with orthopedics was consult. Who advised admitting her to the hospitalist and that he would see her. Hospitalist was paged. At the time of signout, we were waiting for the hospitalist to call us back. Please see Dr. Mabel Gurrola's note for full results of the workup and disposition. - Medical Records Medical records reviewed: Yes I reviewed the patient's medical records. - Radiology Data Radiology results reviewed: Yes I reviewed the patient's radiology results. Hip X-Ray 11/03/18 05:02 IMPRESSION: Progressive bone resorption along the proximal right femoral shaft/subtrochanteric femur. Cross-table lateral views raise suspicion for a periprosthetic fracture, not well appreciated on frontal views. D/ / Conrad Perez / Conrad Perez Interpreting Provider: Conrad Perez
[2018-11-03] MEDS ORDERED: *HR* Morphine 2 MG/ML SYRINGE IVP ONE (05:08)
[2018-11-03] MEDS ORDERED: Ondansetron 4 MG/2 ML VIAL IVP ONE (05:18)
[2018-11-03] MEDS ORDERED: Ondansetron 4 MG/2 ML VIAL ONE (05:19)
--- NOTE | 2018-11-03 06:54 | Emergency Department Note ---
Disposition Clinical Impression: Right femoral fracture Qualifiers: Encounter type: initial encounter Femur location: unspecified portion of femur Fracture type: closed Fracture morphology: unspecified fracture morphology Qualified Code(s): S72.91XA - Unspecified fracture of right femur, initial encounter for closed fracture Disposition: Admitted As Inpatient Condition: Good Forms: ED Satisfaction Letter General Adult HPI - General Chief complaint: ED Extremity Problem,Nontraumatic Stated complaint: Rt hip pain Time Seen by Provider: 11/03/18 04:55 Source: patient, family Mode of arrival: EMS Limitations: no limitations - History of Present Illness Pain Scale: 10 - Related Data Home Medications Medication Instructions Recorded Confirmed Albuterol Sulfate [Proair Hfa] 1 puff IH Q4H PRN 11/02/15 10/07/18 Escitalopram [Lexapro] 20 mg PO DAILY 08/23/16 10/07/18 Levothyroxine Sodium [Levo-T] 200 mcg PO DAILY 08/23/16 10/07/18 Simvastatin [Zocor] 20 mg PO HS 06/12/17 10/07/18 Cyclobenzaprine [Flexeril] 10 mg PO TID PRN 06/17/18 10/07/18 Ergocalciferol (VITAMIN D2) 50,000 unit PO MO 06/17/18 10/07/18 [Vitamin D2] Furosemide [Lasix] 20 mg PO DAILY 06/17/18 10/07/18 GlipiZIDE [Glipizide Xl] 5 mg PO DAILY 06/17/18 10/07/18 Meloxicam [Mobic] 15 mg PO DAILY 06/17/18 10/07/18 Omeprazole [PriLOSEC] 40 mg PO BID 06/17/18 10/07/18 Oxycodone HCl/Acetaminophen 1 tab PO TID PRN 06/17/18 10/07/18 [Percocet 5-325 mg Tablet] Aspirin [Adult Aspirin] 81 mg PO DAILY 07/16/18 10/07/18 Gabapentin [Neurontin] 600 mg PO BID 07/16/18 10/07/18 Liraglutide [Victoza 2-Maximiliano] 0.6 mg SQ DAILY 07/16/18 10/07/18 Previous Rx's Medication Instructions Recorded Levofloxacin [Levaquin] 750 mg PO DAILY #1 tablet 10/12/18 Meloxicam [Mobic] 15 mg PO DAILY tablet 10/12/18 Rifampin [Rifadin] 300 mg PO TID #168 capsule 10/12/18 Vancomycin [Vancocin (wt based)] 2,000 mg IV Q12H #84 vial 10/12/18 levoFLOXacin [Levaquin] 750 mg PO DAILY #1 tablet 10/12/18 Allergies Allergy/AdvReac Type Severity Reaction Status Date / Time hydromorphone [From Dilaudid] AdvReac Nausea Verified 10/07/18 11:40 meperidine [From Demerol] AdvReac vomiting,fever, Verified 10/07/18 11:40 convulsions methimazole AdvReac swelling Verified 10/07/18 11:40 legs Past Medical History - Past Medical History Medical history: Reports: arthritis, cancer, COPD, diabetes, hyperlipidemia, thyroid disease Surgical history: Reports: hip replacement, hysterectomy, thyroidectomy, IVC filter Psychiatric history: Reports: anxiety, depression 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 - Social History Smoking Status: Former smoker Smokeless Tobacco Status: No Alcohol use: Reports: none Drug use: Reports: none Physical Exam - General Limitations: no limitations General appearance: alert, in no apparent distress Course Vital Signs Temperature 98.8 F 11/03/18 05:00 Pulse Rate 108 11/03/18 05:00 Respiratory Rate 16 11/03/18 05:00 Blood Pressure 129/96 11/03/18 05:00 O2 Sat by Pulse Oximetry 96 11/03/18 05:00 Temperature 98.8 F 11/03/18 05:00 Pulse Rate 108 11/03/18 05:00 Respiratory Rate 16 11/03/18 05:00 Blood Pressure 129/96 11/03/18 05:00 O2 Sat by Pulse Oximetry 96 11/03/18 05:00 Oxygen Delivery Oxygen Delivery Room Air Attestation Statement - Attestation Attestation: I examined this patient and my medical decision-making was reviewed with the Resident Physician. I agree with the documented findings, disposition and treatment plan as described except to the extent set forth below. 48 year old female presents to the ED for complaints of right hip pain and that she went to the bathroom last night and felt something pop with immeadiately pain and is currenlty getting treated for MRSA in the hip with IV ABX intermediate designer. It appears she has a prosthetic hip fracutre and we have consulted with orkaylie who recommedns admission to medicine with consult to him (Dr. Mchugh). discussed with javier and they are agreeable to plan.
--- NOTE | 2018-11-03 07:49 | Emergency Department Note ---
START Narrative - START START: The patient was flagged for admission by Dr. Ghazala Gurrola, she had discussed case with Dr. Mchugh who recommended medical admit. The hospitalist had been paged but was not available at the time of Dr. Gurrola's departure, Dr. Gurrola asked me to contact the hospitalist for admission. I spoke with the hospitalist regarding admission, he has accepted the patient to his care, he requests a basic septic septic workup. I have ordered studies as per the hospitalist. I spoke with the patient directly, she voices no needs apart from wanting a drink of water, she is resting comfortably, she states that her last dose of vancomycin was about midnight. She takes vancomycin 1.75 g 3 times a day. She appears to be stable and is pending admission to the hospital. IV fluid and vancomycin was ordered.
[2018-11-03] MEDS ORDERED: Naloxone 0.4 MG/ML INJ IVP PRN (07:50)
[2018-11-03] MEDS ORDERED: 0.9 % Sodium Chloride 1,000 ML IVC ONE (07:52)
[2018-11-03] MEDS ORDERED: Vancomycin (wt based) 1,000 MG VIAL IVPB ONE (07:53)
[2018-11-03] MEDS ORDERED: Dextrose Gel 15 GM/37.5 ML TUBE PO PRN ×2 (07:59)
[2018-11-03] MEDS ORDERED: *HR* Dextrose 50 % in Water (Syg) 50 ML SYRINGE IVP PRN (07:59)
[2018-11-03] MEDS ORDERED: D5% in Water 1,000 ML IVC PRN (07:59)
[2018-11-03] MEDS ORDERED: Vancomycin (wt based) 1,000 MG VIAL IV SCH ×2 (08:00→11:00)
[2018-11-03 08:29] LABS: Basophils # 0.1 K/mcL (0.0-0.2); Basophils % 1.2 %; Eosinophils # 0.2 K/mcL (0.0-0.6); Eosinophils % 4.6 %; Hematocrit 34.2 % (35.3-44.9); Hemoglobin 10.5 g/dL (11.5-15.4); Immature Granulocytes % 0.5 % (0-4); Lymphocytes # 1.5 K/mcL (0.6-4.6); Lymphocytes % 36.2 %; Mean Corpuscular HGB Conc 30.7 g/dL (31.6-35.5); Mean Corpuscular Hemoglobin 25.6 pg (28.0-33.3); Mean Corpuscular Volume 83.4 fL (83.0-100.0); Mean Platelet Volume 8.1 fL (9.4-12.4); Monocytes # 0.4 K/mcL (0.0-1.3); Monocytes % 10.4 %; Platelet Count 416 K/mcL (140-400); Red Cell Distribution Width 18.4 % (11.5-14.5); Segmented Neutrophils % 47.1 %
[2018-11-03 08:36] LABS: INR 1.1; Prothrombin Time 12.7 Seconds (9.4-12.1)
[2018-11-03 08:39] LABS: Activated Partial Thrombo Time 32.7 Seconds (26.0-36.0)
[2018-11-03 08:50] LABS: Alanine Aminotransferase 11 Units/L (7-52); Albumin/Globulin Ratio 0.9 (1.1-2.2); Alkaline Phosphatase 128 Units/L (34-104); Aspartate Amino Transferase 11 Units/L (13-39); BUN/Creatinine Ratio 9 (6-26); Bilirubin,Direct 0.1 mg/dL (0.0-0.2); Bilirubin,Indirect 0.1 mg/dL (0.0-1.2); Bilirubin,Total 0.2 mg/dL (0.3-1.0); Blood Urea Nitrogen 7 mg/dL (6-20); Calcium 9.5 mg/dL (8.6-10.3); Carbon Dioxide 27 mEq/L (23-29); Chloride 101 mEq/L (98-107); Globulin 4.6 g/dL (2.4-3.5); Glucose 99 mg/dL (70-105); Magnesium 2.3 mg/dL (1.6-2.6); Osmolality,Calculated 288 (280-300); Phosphorous 4.1 mg/dL (2.7-4.5); Potassium 3.7 mEq/L (3.5-5.1); Sodium 140 mEq/L (136-145); Total Protein 8.6 g/dL (6.4-8.9); Troponin I < 0.03 ng/mL (< 0.04); eGFR For Non-African Americans > 60 (> 60)
[2018-11-03] MEDS ORDERED: levoFLOXacin 750 MG TABLET PO SCH (09:00)
[2018-11-03 09:32] LABS: C-Reactive Protein 76 mg/L (Less than 10); Vancomycin,Random 28 mcg/mL
[2018-11-03 10:32] LABS: Estimated Average Glucose 169 mg/dl; Hemoglobin A1C 7.5 %
[2018-11-03 10:40] LABS: Bilirubin,Urine Negative (Negative); Blood,Urine Negative (Negative); Clarity,Urine Clear (Clear); Color,Urine Yellow (Yellow); Glucose,Urine (UA) Normal (Normal); Ketones,Urine Negative (Negative); Leukocyte Esterase,Urine Negative (Negative); Nitrite,Urine Negative (Negative); PH,Urine 6.5 pH Units (5.0-8.0); Protein,Urine Negative (Neg-Trace); Specific Gravity,Urine 1.011 (1.010-1.025); Urobilinogen,Urine Normal (Normal)
--- NOTE | 2018-11-03 10:50 | Internal Med History&Physical ---
Date of Encounter: 11/03/18 Time of Encounter: 10:30 Internal Medicine - H&P: HPI Chief complaint: Right hip prosthetic fracture History of present illness: Ms. Green is a 48 year old female with pmh of s/p bilateral hip replacement surgerues, diabetes, hypothyroidism presenting with complaints of right prosthetic hip fracture last night. Patient has a prosthetic right hip and has been on antibiotics with vancomycin, levaquin and rifampir since mid september for an infected hip joint. Blood cultures were positive for MRSA. She is also s/p surgical irrigation and debridement of draining right hip on 10/07. She says she went to the potty last night and as she attempted to get up from the potty, she heard a crack and began to experience pain in the right hip. She denies any fevers or chills or any other acute symptoms. She has been unable to bear weight on her right lower extremity since the fracture. In the ER, a hip xray was done showing a periprosthetic fracture. Orthopedic surgery has been consulted and she is being admitted for further management Past Med Surg Social Fam HX - Past Medical History Medical history: arthritis, cancer, COPD, diabetes, hyperlipidemia, thyroid disease Additional medical history: Sleep Apnea, Graves Disease, uterine cancer Psychiatric history: anxiety, depression - Past Surgical History Surgical History: hip replacement, hysterectomy, thyroidectomy, IVC filter Additional surgical history: 4 hip surgeries - Social History Smoking Status: Former smoker Smokeless Tobacco Status: No Alcohol use: none Drug use: none - Family History Father Living Status: Hx Family Cardiac Disorders: No Hx Family Respiratory Disorders: No Hx Family Cancer: Yes Hx Family GI Disorders: No Hx Family Endocrine Disorder: No Hx Family Neuromuscular Disorders: No Hx Family Neurologic Disorders: No Hx Family HEENT Disorders: No Hx Family Autoimmune Disorders: No Mother Hx Family Cardiac Disorders: Yes (HTN) Internal Medicine - H&P: Meds Albuterol Sulfate [Proair Hfa] 1 puff IH Q4H PRN 11/02/15 [History] Escitalopram [Lexapro] 20 mg PO DAILY 08/23/16 [History] Levothyroxine Sodium [Levo-T] 200 mcg PO DAILY 08/23/16 [History] Simvastatin [Zocor] 20 mg PO HS 06/12/17 [History] Cyclobenzaprine [Flexeril] 10 mg PO TID 06/17/18 [History] Ergocalciferol (VITAMIN D2) [Vitamin D2] 50,000 unit PO MO 06/17/18 [History] Furosemide [Lasix] 20 mg PO DAILY 06/17/18 [History] GlipiZIDE [Glipizide Xl] 5 mg PO DAILY 06/17/18 [History] Oxycodone HCl/Acetaminophen [Percocet 5-325 mg Tablet] 1 tab PO TID PRN 06/17/18 [History] Aspirin [Adult Aspirin] 81 mg PO DAILY 07/16/18 [History] Gabapentin [Neurontin] 600 mg PO TID 07/16/18 [History] Liraglutide [Victoza 2-Maximiliano] 0.6 mg SQ DAILY 07/16/18 [History] Vancomycin [Vancocin (wt based)] 2,000 mg IV Q12H #84 vial 10/12/18 [Rx] Amitriptyline [Elavil] 25 mg PO HS 11/03/18 [History] Celecoxib [Celebrex] 100 mg PO DAILY 11/03/18 [History] Pantoprazole Sodium [Protonix] 40 mg PO DAILY 11/03/18 [History] Allergy/AdvReac Type Severity Reaction Status Date / Time hydromorphone [From Dilaudid] AdvReac Nausea Verified 10/07/18 11:40 meperidine [From Demerol] AdvReac vomiting,fever, Verified 10/07/18 11:40 convulsions methimazole AdvReac swelling Verified 10/07/18 11:40 legs All Systems PM: A 10-system review of systems was performed and is negative for pertinent findings except as documented above in the HPI. - Constitutional Constitutional: no chills, no fever(s), no night sweats - EENT Eyes: no change in vision, no discharge, no pain, no photophobia Ears: no ear discharge, no ear pain, no tinnitus Nose, mouth and throat: no dysphagia, no nasal discharge, no neck pain, no sore throat - Cardiovascular Cardiovascular ROS IM: no chest pain, no diaphoresis, no dyspnea, no lightheadedness, no palpitations, no syncope - Respiratory Respiratory: no cough, no dyspnea, no wheezing, no excessive phlegm production - Gastrointestinal Gastrointestinal: no abdominal pain, no diarrhea, no hematemesis, no hematochezia, no melena, no nausea, no vomiting - Genitourinary Genitourinary: no change in urinary stream, no dysuria, no flank pain, no hematuria - Musculoskeletal Musculoskeletal ROS IM: joint swelling, no numbness, no tingling Additional comments: hip pain - Integumentary Integumentary IM: no rash, no unusual bruising - Neurological Neurological ROS: no confusion, no convulsions, no focal weakness, no numbness, no tingling, no tremor(s) - Hematologic/Lymphatic Hematologic/Lymphatic: no easy bruising - Constitutional Vitals: Temp Pulse Resp BP Pulse Ox 98.3 F 99 16 138/41 95 11/03/18 10:10 11/03/18 10:10 11/03/18 10:10 11/03/18 10:10 11/03/18 10:10 Exam: mild distress from pain - Head Head exam: Present: atraumatic, normocephalic - Eye Eye exam: Present: PERRL, conjuntiva pink, sclera anicteric Pupils: Present: PERRL - Neck Neck exam general surgery: Present: supple, trachea midline. Absent: lymphadenopathy - Respiratory Respiratory exam: Present: CTAB. Absent: accessory muscle use, rales, rhonchi, wheezes - Cardiovascular Cardiovascular exam: Present: RRR, +S1, +S2. Absent: diastolic murmur, gallop, rubs, systolic murmur - GI/Abdominal GI/Abdominal exam: Present: normal bowel sounds, soft, no peritoneal signs. Absent: distended, tenderness - Extremities Exam Extremities exam: Present: warm, radial pulses palpable and symmetrical. Absent: calf tenderness, cyanotic, pedal edema Additional comments: right hip pain and swelling noted - Neurological Exam Neurological exam: Present: CN II-XII intact, oriented X3, no focal deficits. Absent: pronater drift, facial droop, speech deficit - Skin Skin exam: Present: dry, intact Internal Med - H&P Results - Labs CBC & Chem 7: 11/03/18 08:12 11/03/18 08:12 Labs: Short CBC 11/03/18 Range/Units 08:12 WBC 4.1 L (4.3-11.1) K/mcL Hgb 10.5 L (11.5-15.4) g/dL Hct 34.2 L (35.3-44.9) % Plt Count 416 H (140-400) K/mcL Neutrophils # 2.0 (1.6-8.9) K/mcL BMP 11/03/18 08:12 Sodium 140 Potassium 3.7 Chloride 101 Carbon Dioxide 27 BUN 7 Creatinine 0.82 Glucose 99 Calcium 9.5 Cardiac Enzymes 11/03/18 Range/Units 08:12 Troponin I < 0.03 (< 0.04) ng/mL Liver Function 11/03/18 Range/Units 08:12 Total Bilirubin 0.2 L (0.3-1.0) mg/dL Direct Bilirubin 0.1 (0.0-0.2) mg/dL AST 11 L (13-39) Units/L ALT 11 (7-52) Units/L Alkaline Phosphatase 128 H (34-104) Units/L Albumin 4.0 (3.5-5.7) g/dL - Impressions ITS Impressions Hip X-Ray 11/03/18 05:02 IMPRESSION: Progressive bone resorption along the proximal right femoral shaft/subtrochanteric femur. Cross-table lateral views raise suspicion for a periprosthetic fracture, not well appreciated on frontal views. D/ / Conrad Perez / Conrad Perez Interpreting Provider: Conrad Perez Chest X-Ray 11/03/18 07:51 IMPRESSION: 1. No active pulmonary disease. 2. Stable cardiomegaly without overt failure. D/ / Juancho De Leon MD / Juancho De Leon MD Interpreting Provider: Juancho De Leon MD - Assessment and Plan (1) Joint prosthesis complication Current Visit: Yes Status: Acute Assessment and plan: Pt has right hip prosthetic fracture of one day duration Pain control as needed. Orthopedic surgery consult. Has previous MRSA infection from a month ago for which she is on antibiotics Will continue regimen of vancomycin, levaquin , rifampin. ID consulted for antibiotic management Qualifiers: Qualified Code(s): T84.9XXA - Unspecified complication of internal orthopedic prosthetic device, implant and graft, initial encounter (2) Right femoral fracture Current Visit: Yes Status: Acute Assessment and plan: See #1 Qualifiers: Encounter type: initial encounter Femur location: unspecified portion of femur Fracture type: closed Fracture morphology: unspecified fracture morphology Qualified Code(s): S72.91XA - Unspecified fracture of right femur, initial encounter for closed fracture (3) Diabetes mellitus Current Visit: Yes Status: Chronic Assessment and plan: Continue insulin and monitor fingersticks Qualifiers: Diabetes mellitus type: type 2 Diabetes mellitus detention insulin use: without detention use Diabetes mellitus complication status: with hyperglycemia Qualified Code(s): E11.65 - Type 2 diabetes mellitus with hyperglycemia (4) Morbid obesity with BMI of 45.0-49.9, adult Current Visit: Yes Status: Chronic Assessment and plan: Diet and exercise (5) Hypothyroidism Current Visit: Yes Status: Acute Assessment and plan: On levothyroxine Qualifiers: Qualified Code(s): E03.9 - Hypothyroidism, unspecified (6) DVT prophylaxis Current Visit: Yes Status: Acute Assessment and plan: heparin sc - Time Spent With Patient Total time spent is greater than 50% in coordination of care (as documented) at patient's floor/unit and/or counseling patient:
[2018-11-03] MEDS: rifAMPin 150 MG CAPSULE PO SCH ×2 (10:54→15:16)
[2018-11-03] MEDS ORDERED: Acetaminophen 325 MG TABLET PO PRN (11:07)
--- NOTE | 2018-11-03 12:12 | Infectious Disease Consult ---
Infectious Disease-Consult - Encounter Date/Time Date of Encounter: 11/03/18 Time of Encounter: 12:08 - Data of Consult Patient: known to practice within the last 3 years Reason for consult: Right hip infection Consult date: 11/03/18 Requesting Physician: Kelby Mac Primary Care Provider: Walter Merino MD - HPI HPI: Ms. Green is a 48-year-old female with a past medical history of diabetes, hyperlipidemia, COPD, Graves' disease, anxiety, depression, remote history of left hip acetabular revision and status post right hip robotic total hip replacement 06/17/18 status post right revision femoral component total hip and ORIF of periprosthetic femur fracture 07/16/18. The patient was admitted to the hospital 11/03/18 for right hip fracture. We are consulted 11/03/18 for further antibiotic recommendations for right hip infection. Briefly, the patient is a 48 year old female, well-known to the facility services we are consulted on her case during her most recent hospitalization at which time she was diagnosed with a right hip prosthetic joint infection.The patient underwent a robotic total right hip replacement in May 2018. She subsequently fell in June fracturing her femur and underwent a right revision femoral component total hip and ORIF periprosthetic femur fracture 07/16/18. Si nce that surgery, she has had issues with wound healing. She was treated with a ten-day course of oral Bactrim which did not improve her symptoms and she was started on IV vancomycin on July 31. Her IV antibiotics were discontinued on August 19 and she was started on a 5 day course of oral Bactrim. Apparently on 10/03/18 she was in bed and rolled over and felt severe pain from her hip to her knee. She also developed developed fevers. She was seen in the orthopedics office for for her routine postop visit and when she laid down on the x- ray table should purulent drainage coming from a area of wound dehiscence. Those cultures came back positive for MRSA. She was directly admitted to the hospital for further evaluation and treatment.Upon arrival, she was tachycardic and had leukocytosis. Her renal function was normal. Blood cultures were obtained 2 sets and came back +1 out of 2 for MRSA. Orthopedics was consulted and recommended an operative debridement, but the patient signed out AMA. She came back for and was taken to the operating room and underwent a right hip irrigation and debridement. Intraoperative cultures were positive for MRSA. Repeat blood cultures drawn 10/08/18 were negative. She was diagnosed with pneumonia while hospitalized and completed a 5 day course of oral Levaquin. She was discharged home to complete a six-week course of IV vancomycin and oral rifampin. She was seen in the infectious disease office last week and clinically was doing well. Her inflammatory markers have improved. Apparently, the patient went to the bathroom last night and stood up and gets developed significant right hip pain and felt a pop. Upon arrival to the ER, she was afebrile. She was tachycardic, but was otherwise hemodynamically stable. Her white blood cell count was normal. Lactic acid and renal function were within normal limits. Her ESR is greater than 130 with a CRP of 76. Random vancomycin level was 28. Blood cultures were obtained 2 sets. She had a right hip x-ray that showed progressive bone resorption along the proximal right femoral shaft/subtrochanteric femur suspicious for a periprosthetic fracture. Orthopedics was consulted and recommended hospitalization. She was started back on IV vancomycin, oral rifampin, and oral Levaquin. She was admitted to the hospital for further evaluation. Since admission, the patient has remained afebrile hemodynamically stable. Her tachycardia has resolved. Orthopedic consult is pending. We have been asked to evaluate and make further recommendations. During my exam today, the patient states that when attempting to sit down on the toilet, she heard and felt a crack in her bone and experienced severe pain thereafter. She reports feeling cold all the time which is chronic for her even prior to her most recent infection. Denies chest pain, shortness of breath, or cough. Denies nausea, vomiting, diarrhea. Reports some loose stools. Denies abdominal pain or urinary complaints. Denies oral thrush or skin lesions. Complains of pain in the right groin, worse with movement. Denies redness, warmth, drainage, or surgical wound dehiscence. States she has been taking her medications as prescribed. The patient lives at home with her family. She does not work outside the home. She does have a dog, but denies any bites or scratches. Denies any tobacco, alcohol, or illicit drug use. Denies any chronic infectious diseases. Denies any recent travel outside the [facility]. - ROS Review of Systems: All systems reviewed and no additional remarkable complaints except as stated. - Results CBC & Chem 7: 11/05/18 04:12 11/05/18 04:12 - Exam Vitals: Temp Pulse Resp BP Pulse Ox 98.3 F 99 16 138/41 95 11/03/18 10:10 11/03/18 10:10 11/03/18 10:10 11/03/18 10:10 11/03/18 10:10 Exam: Head: Atraumatic, normal inspection, normocephalic. Eye: EOMI, PERRLA, no scleral icterus noted. ENT: Mucous membranes moist. No odontogenic infection noted. Neck: Normal inspection, no meningismus. Respiratory: Clear to auscultation. No rales, respiratory distress, rhonchi, or wheezes noted. Cardiovascular: Regular rate and rhythm, S1 and S2 audible. No murmurs, rubs, or gallops. GI: Soft, nondistended, normal bowel sounds. Extremities:No joint swelling, pedal edema, or tenderness noted. Right hip surgical sites well-healed without drainage, erythema, or warmth. Small scabbed lesion noted above the surgical incision (previous drain site) and small scabbed lesion noted to the middle of the lateral thigh surgical site without surrounding erythema, warmth, tenderness, or drainage. Back: Normal inspection. No vertebral tenderness noted. Neurological: Alert, oriented 3, no focal deficits. Psychiatric: normal affect, normal mood. Skin: Dry, intact, warm. Normal color. No rashes. Albuterol Sulfate [Proair Hfa] 1 puff IH Q4H PRN 11/02/15 [History] Escitalopram [Lexapro] 20 mg PO DAILY 08/23/16 [History] Levothyroxine Sodium [Levo-T] 200 mcg PO DAILY 08/23/16 [History] Simvastatin [Zocor] 20 mg PO HS 06/12/17 [History] Cyclobenzaprine [Flexeril] 10 mg PO TID 06/17/18 [History] Ergocalciferol (VITAMIN D2) [Vitamin D2] 50,000 unit PO MO 06/17/18 [History] Furosemide [Lasix] 20 mg PO DAILY 06/17/18 [History] GlipiZIDE [Glipizide Xl] 5 mg PO DAILY 06/17/18 [History] Oxycodone HCl/Acetaminophen [Percocet 5-325 mg Tablet] 1 tab PO TID PRN 06/17/18 [History] Aspirin [Adult Aspirin] 81 mg PO DAILY 07/16/18 [History] Gabapentin [Neurontin] 600 mg PO TID 07/16/18 [History] Liraglutide [Victoza 2-Maximiliano] 0.6 mg SQ DAILY 07/16/18 [History] Vancomycin [Vancocin (wt based)] 2,000 mg IV Q12H #84 vial 10/12/18 [Rx] Amitriptyline [Elavil] 25 mg PO HS 11/03/18 [History] Celecoxib [Celebrex] 100 mg PO DAILY 11/03/18 [History] Pantoprazole Sodium [Protonix] 40 mg PO DAILY 11/03/18 [History] Allergy/AdvReac Type Severity Reaction Status Date / Time hydromorphone [From Dilaudid] AdvReac Nausea Verified 10/07/18 11:40 meperidine [From Demerol] AdvReac vomiting,fever, Verified 10/07/18 11:40 convulsions methimazole AdvReac swelling Verified 10/07/18 11:40 legs - Assessment and Plan (1) Right femoral fracture Current Visit: Yes Status: Ruled-out Right hip XR shows findings concerning for periprosthetic femur fracture. Orthopedics consult pending. Qualifiers: Encounter type: initial encounter Femur location: unspecified portion of femur Fracture type: closed Fracture morphology: unspecified fracture morphology Qualified Code(s): S72.91XA - Unspecified fracture of right femur, initial encounter for closed fracture SNOMED Code(s): 24955650 (2) Infection of right prosthetic hip joint Current Visit: Yes Status: Chronic Location: Right hip. Causative organism: MRSA Likely secondary to recent surgical procedure and nonhealing of the wound. No imaging of the hip was completed preop. Cultures obtained of the purulent drainage prior to surgery were positive for MRSA. Status post right hip irrigation and debridement 10/07/18. There was dehiscence noted in the fascia that went all the way down to the joint space, but no purulence was noted Intra-Op. Intra-Op cultures were positive for MRSA. Currently on vancomycin and PO rifampin. ESR remains elevated at >130, but CRP improved. Qualifiers: Encounter type: subsequent encounter Qualified Code(s): T84.51XD - Infection and inflammatory reaction due to internal right hip prosthesis, subsequent encounter SNOMED Code(s): 972669399, 659675821 (3) Status post revision of total hip Current Visit: No Status: Chronic June 2018-right revision femoral component total hip, ORIF periprosthetic femur fracture. SNOMED Code(s): 877758441, 044067295, 724894194, [id number] (4) Status post total hip replacement, right Current Visit: No Status: Chronic Robotic total hip replacement 06/17/18. SNOMED Code(s): 229641347128, [id number] (5) TANISHA (obstructive sleep apnea) Current Visit: No Status: Chronic SNOMED Code(s): 65912177 (6) COPD (chronic obstructive pulmonary disease) Current Visit: No Status: Chronic Qualifiers: COPD type: unspecified COPD Qualified Code(s): J44.9 - Chronic obstructive pulmonary disease, unspecified SNOMED Code(s): 30613353 (7) Diabetes mellitus Current Visit: Yes Status: Chronic Recommend aggressive glucose monitoring and control to promote wound healing and prevent reinfection. Management per the primary team. Qualifiers: Diabetes mellitus type: type 2 Diabetes mellitus custodial insulin use: without custodial use Diabetes mellitus complication status: with hyperglycemia Qualified Code(s): E11.65 - Type 2 diabetes mellitus with hyperglycemia SNOMED Code(s): 63457852 (8) Hypothyroidism Current Visit: Yes Status: Acute Qualifiers: Qualified Code(s): E03.9 - Hypothyroidism, unspecified SNOMED Code(s): 32298658 - Recommendations Recommendations: Await blood cultures to finalize. Get CT of the right hip with IV contrast. Await further recommendations from the ortho team. Continue Vancomycin IV. Pharmacy to dose. Goal trough ~15. Continue rifampin 300mg PO TID. Discontinue Levaquin. Duration of treatment depends on the clinical picture. Monitor renal function and for drug toxicity and dose-adjust antibiotics. Past Med Surg Social Fam HX - Past Medical History Medical history: arthritis, cancer, COPD, diabetes, hyperlipidemia, thyroid disease Additional medical history: Sleep Apnea, Graves Disease, uterine cancer Psychiatric history: anxiety, depression - Past Surgical History Surgical History: hip replacement, hysterectomy, thyroidectomy, IVC filter Additional surgical history: 4 hip surgeries - Social History Smoking Status: Former smoker Smokeless Tobacco Status: No Alcohol use: none Drug use: none - Family History Father Living Status: Hx Family Cardiac Disorders: No Hx Family Respiratory Disorders: No Hx Family Cancer: Yes Hx Family GI Disorders: No Hx Family Endocrine Disorder: No Hx Family Neuromuscular Disorders: No Hx Family Neurologic Disorders: No Hx Family HEENT Disorders: No Hx Family Autoimmune Disorders: No Mother Hx Family Cardiac Disorders: Yes (HTN) Consult Discharge Plan - Plan Referrals: Walter Merino MD [Primary Care Provider] - - Attending Attestation I have personally performed a face to face evaluation on this patient. I have reviewed and agree with the care plan. History and Exam by me shows: This is an original report dictated by Gauri Olivera CNP. Please refer to Gauri's note for full detail. I agree with above history of present illness, review of system and physical exam findings. Assessment and plan: 1.Right hip pain etiology not clear fracture versus hematoma versus abscess. Discussed with orthopedic team status post CT scan with fluid collection. We will send for drainage and sent for cell count, chemistry, Gram stain and cultures 3.Infected and right hip prosthesis causative organism MRSA currently on IV vancomycin and by mouth rifampin 4.Status post revision of total hip Recommendations: continue IV vanco and rifampin no new antibiotics await fluid analysis and cultures monitor labs and for drug toxicity
[2018-11-03] MEDS: *HR* FentaNYL (PF) 100 MCG/2 ML VIAL IVP PRN ×2 (12:27→22:16)
[2018-11-03] MEDS: Insulin LISPRO 300 UNITS/3 ML VIAL SQ SCH ×2 (12:28→15:59)
[2018-11-03] MEDS ORDERED: Isovue-370 500 ML BOTTLE IVP ONE (13:54)
--- NOTE | 2018-11-03 15:05 | Orthopedic Consult Note ---
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 Green is a 48 year old female well known to [facility]. Patient presented to ED for evaluation after sitting onto commode last night and per patient felt a "pop" to the hip region and subsequently developed significant right hip/groin pain with significant pain with weight bearing. Patient states that she is sure something is wrong with her hip as she states it feels similar to when she fell causing a periprosthetic fracture in 06/2018. She admits to most significantly groin pain with radiation to the right labia. She admits to significant pain in the anterior hip and groin with weightbearing. Denies pain in buttocks or posterior incision. Denies drainage from incision. Denies headache, chest pain, shortness of breath, or new numbness/tingling. Patient has a complex history with recent admission and surgery in mid-September 2018 after she presented to outpatient [facility] office on 10/05 with complaints of right hip pain. Upon obtaining xray films, mariely pus and fluid drainage began expressing from right hip incision at pinhole site per record. Patient was direct admitted to hospitalist team 10/05 with plan for orthopedic intervention. Patient left AMA on 10/06 for concerns regarding her home status, however, patient was in contact with [facility] office and returned for surgical irrigation and debridement of draining right hip on 10/07. Intraop findings demonstrated 4 cm dehiscence of the fascia with no mariely purulence noted. Extensive debridement performed by Dr. Mchugh with avoidance of dislocation of the hip based on the patient's complicated history of a fall in the postop window sustaining a perip rosthetic femur fracture requiring right hip revision with femur orif on 07/16/18 following her initial hip replacement performed on 06/17/18. Patient also found to have MRSA bacteremia from blood cultures performed on initial admission 10/05/18. Intraoperative cultures resulted to finding of MRSA Hospitalist team was then consulted for assistance with medical management. Infectious disease was consulted and patient had PICC placement following negative repeat blood cultures and negative findings on KELLY/TTE Patient discharged home with home health services with antibiotic orders of PO Levaquin, PO Rifampin, IV Vancomycin (Goal trough 15) on 10/12/18 and has been on Vanc and Rifampin since and denies missing any doses. On exam patient resting comfortably supine. Weinberg noted with clear, yellow urine. Patient alert and oriented in no acute distress. Tender to palpation along groin and anterior thigh. ROM right hip limited secondary to pain. ROM knee and ankle intact. Xrays reviewed - concern from radiologist re: possible new fractures. Discussed with Dr. Mchugh and Gauri Olivera and Dr. Reddy with Infectious disease. Xrays on comparison with previous from September do not appear dissimilar. Given patient's concern and complex history as well as medical comborbidities concern for occult fracture versus fluid collection/abscess present. After further discussion with the above parties, will proceed with CT imaging with contrast. Discussed xrays and Ct scan with Dr. Spear, radiologist at length. Reviewed patient's history and present complaints. Concern for abscess remains though patient has had history of draining wound and surgery appx 4 weeks ago. Patient has been on IV antibiotics. Dr. Spear states aspiration could be unsuccessful secondary to complexity of collection. Impression as follows: CT/CT hip RT w con IMPRESSION: Status post right total hip arthroplasty revision with complex fluid collection 4.6 x 8.6 cm highly concerning for abscess. This extends to communicate with the joint line. Recommend debridement or aspiration. Developing cortical defect proximal margin of the femoral component representing subacute healing fracture. The possibility of postinfectious origin cannot be excluded. D/ / 11/03/2018 16:35:02 Sid Spear MD / [facility] Interpreting Provider: Sid Spear MD Reviewed case with Dr. Mchugh and Dr. Reddy again. Dr. Mchugh states will reevaluate tomorrow after further testing by ID. Dr. Reddy states will order non-invasive testing at this time. Await further results for further recommendation. Thank you for this consultation. Please reach out with any concerns or questi ons. Past Med Surg Social Fam HX - Past Medical History Medical history: arthritis, cancer, COPD, diabetes, hyperlipidemia, thyroid di sease Additional medical history: Sleep Apnea, Graves Disease, uterine cancer Psychiatric history: anxiety, depression - Past Surgical History Surgical History: hip replacement, hysterectomy, thyroidectomy, IVC filter Additional surgical history: 4 hip surgeries - Social History Smoking Status: Former smoker Smokeless Tobacco Status: No Alcohol use: none Drug use: none - Family History Father Living Status: Hx Family Cardiac Disorders: No Hx Family Respiratory Disorders: No Hx Family Cancer: Yes Hx Family GI Disorders: No Hx Family Endocrine Disorder: No Hx Family Neuromuscular Disorders: No Hx Family Neurologic Disorders: No Hx Family HEENT Disorders: No Hx Family Autoimmune Disorders: No Mother Hx Family Cardiac Disorders: Yes (HTN) Medications and Allergies Albuterol Sulfate [Proair Hfa] 1 puff IH Q4H PRN 11/02/15 [History] Escitalopram [Lexapro] 20 mg PO DAILY 08/23/16 [History] Levothyroxine Sodium [Levo-T] 200 mcg PO DAILY 08/23/16 [History] Simvastatin [Zocor] 20 mg PO HS 06/12/17 [History] Cyclobenzaprine [Flexeril] 10 mg PO TID 06/17/18 [History] Ergocalciferol (VITAMIN D2) [Vitamin D2] 50,000 unit PO MO 06/17/18 [History] Furosemide [Lasix] 20 mg PO DAILY 06/17/18 [History] GlipiZIDE [Glipizide Xl] 5 mg PO DAILY 06/17/18 [History] Oxycodone HCl/Acetaminophen [Percocet 5-325 mg Tablet] 1 tab PO TID PRN 06/17/18 [History] Aspirin [Adult Aspirin] 81 mg PO DAILY 07/16/18 [History] Gabapentin [Neurontin] 600 mg PO TID 07/16/18 [History] Liraglutide [Victoza 2-Maximiliano] 0.6 mg SQ DAILY 07/16/18 [History] Vancomycin [Vancocin (wt based)] 2,000 mg IV Q12H #84 vial 10/12/18 [Rx] Amitriptyline [Elavil] 25 mg PO HS 11/03/18 [History] Celecoxib [Celebrex] 100 mg PO DAILY 11/03/18 [History] Pantoprazole Sodium [Protonix] 40 mg PO DAILY 11/03/18 [History] Allergy/AdvReac Type Severity Reaction Status Date / Time hydromorphone [From Dilaudid] AdvReac Nausea Verified 10/07/18 11:40 meperidine [From Demerol] AdvReac vomiting,fever, Verified 10/07/18 11:40 convulsions methimazole AdvReac swelling Verified 10/07/18 11:40 legs All Systems Reviewed: The remainder of the systems were reviewed and are negative Physical Exam - Constitutional Vitals: Temp Pulse Resp BP Pulse Ox 98.3 F 99 16 138/41 95 11/03/18 10:10 11/03/18 10:10 11/03/18 10:10 11/03/18 10:10 11/03/18 10:10 Results - Labs Result Diagrams: 11/03/18 08:12 11/03/18 08:12 Labs: Abnormal lab results WBC 4.1 K/mcL (4.3-11.1) L 11/03/18 08:12 Hgb 10.5 g/dL (11.5-15.4) L 11/03/18 08:12 Hct 34.2 % (35.3-44.9) L 11/03/18 08:12 MCH 25.6 pg (28.0-33.3) L 11/03/18 08:12 MCHC 30.7 g/dL (31.6-35.5) L 11/03/18 08:12 RDW 18.4 % (11.5-14.5) H 11/03/18 08:12 Plt Count 416 K/mcL (140-400) H 11/03/18 08:12 MPV 8.1 fL (9.4-12.4) L 11/03/18 08:12 ESR >= 130 mm/hr (0-15) H 11/03/18 08:12 PT 12.7 Seconds (9.4-12.1) H 11/03/18 08:12 POC Glucose 130 mg/dL (70-99) H 11/03/18 11:22 7.5 % (-5.6) H 11/03/18 08:12 0.2 mg/dL (0.3-1.0) L 11/03/18 08:12 AST 11 Units/L (13-39) L 11/03/18 08:12 128 Units/L (34-104) H 11/03/18 08:12 76 mg/L (Less than 10) H 11/03/18 08:12 4.6 g/dL (2.4-3.5) H 11/03/18 08:12 0.9 (1.1-2.2) L 11/03/18 08:12 H & H 11/03/18 Range/Units 08:12 Hgb 10.5 L (11.5-15.4) g/dL Hct 34.2 L (35.3-44.9) % All other labs normal. Consult Discharge Plan - Plan Referrals: Walter Merino MD [Primary Care Provider] -
[2018-11-03] MEDS: Gabapentin 300 MG CAPSULE PO SCH ×2 (15:16→22:15)
[2018-11-03] MEDS: *HR* Heparin 5,000 UNIT/ML VIAL SQ SCH (18:11)
[2018-11-04] MEDS: rifAMPin 150 MG CAPSULE PO SCH ×4 (04:25→20:36)
[2018-11-04] MEDS: *HR* FentaNYL (PF) 100 MCG/2 ML VIAL IVP PRN (04:31)
[2018-11-04 06:56] LABS: Basophils # 0.1 K/mcL (0.0-0.2); Basophils % 1.1 %; Eosinophils # 0.2 K/mcL (0.0-0.6); Eosinophils % 3.4 %; Hematocrit 34.8 % (35.3-44.9); Hemoglobin 10.6 g/dL (11.5-15.4); Immature Granulocytes % 0.6 % (0-4); Lymphocytes % 28.5 %; Mean Corpuscular HGB Conc 30.5 g/dL (31.6-35.5); Mean Corpuscular Hemoglobin 25.7 pg (28.0-33.3); Mean Corpuscular Volume 84.3 fL (83.0-100.0); Mean Platelet Volume 8.2 fL (9.4-12.4); Monocytes # 0.5 K/mcL (0.0-1.3); Monocytes % 7.4 %; Neutrophils # 3.8 K/mcL (1.6-8.9); Platelet Count 459 K/mcL (140-400); Red Blood Count 4.13 M/mcL (3.82-4.97); Red Cell Distribution Width 18.8 % (11.5-14.5)
[2018-11-04 07:02] LABS: Lymphocytes # 1.9 K/mcL (0.6-4.6)
[2018-11-04 07:16] LABS: BUN/Creatinine Ratio 11 (6-26); Blood Urea Nitrogen 8 mg/dL (6-20); Calcium 9.4 mg/dL (8.6-10.3); Carbon Dioxide 25 mEq/L (23-29); Chloride 102 mEq/L (98-107); Glucose 150 mg/dL (70-105); Magnesium 2.1 mg/dL (1.6-2.6); Osmolality,Calculated 287 (280-300); Phosphorous 3.6 mg/dL (2.7-4.5); Potassium 4.1 mEq/L (3.5-5.1); Sodium 138 mEq/L (136-145); eGFR For Non-African Americans > 60 (> 60)
[2018-11-04] MEDS: *HR* Heparin 5,000 UNIT/ML VIAL SQ SCH ×2 (07:31→18:08)
[2018-11-04] MEDS: Insulin LISPRO 300 UNITS/3 ML VIAL SQ SCH ×3 (08:23→18:08)
[2018-11-04] MEDS ORDERED: Celecoxib 100 MG CAPSULE PO SCH (09:00)
[2018-11-04] MEDS: Gabapentin 300 MG CAPSULE PO SCH ×3 (09:48→20:36)
[2018-11-04] MEDS: Aspirin Enteric Coated 81 MG Tablet PO SCH (09:48)
--- NOTE | 2018-11-04 09:56 | Orthopedics Progress Note ---
Date of Encounter: 11/04/18 Time of Encounter: 06:30 Subjective Interval history: Patient seen this morning, well known to me. Patient with episode of increased pain in the right hip getting up yesterday. X-rays were reviewed and compared to old films, patient does have a history of a periprosthetic fracture I believe that the fracture is identified our seen on previous x-rays. Patient's incision today is healed no drainage no significant erythema. Patient did have a collection localized on CT scan patient is scheduled for interventional radiology to aspirate. At this point time no surgical intervention recommended we will reevaluate after aspiration results are obtained. Continue IV antibiotics. Patient's CRP is 76 slightly down from her last CRP. Objective Vital signs: Vital Signs Temp Pulse Resp BP Pulse Ox 11/04/18 07:43 99.0 F 104 16 114/59 93 11/04/18 03:44 97.7 F 105 16 125/65 92 11/04/18 00:58 98.2 F 108 16 116/67 96 11/03/18 21:39 98.7 F 106 16 120/79 96 11/03/18 15:10 98.5 F 102 16 133/80 95 11/03/18 10:10 98.3 F 99 16 138/41 95 Intake and Output 11/03/18 11/04/18 11/04/18 23:59 07:59 15:59 Output Total 250 / 250 Balance -250 / -250 Output: Catheter 250 / 250 Other: Meal npo # Bowel Movements 0 Weight 131 kg Blood Glucose* 156 Patient Weight 11/04/18 23:59 Weight 131 kg - Labs CBC & BMP: 11/04/18 06:47 11/04/18 06:47 Labs: Abnormal lab results WBC 4.1 K/mcL (4.3-11.1) L 11/03/18 08:12 Hgb 10.6 g/dL (11.5-15.4) L 11/04/18 06:47 Hct 34.8 % (35.3-44.9) L 11/04/18 06:47 MCH 25.7 pg (28.0-33.3) L 11/04/18 06:47 MCHC 30.5 g/dL (31.6-35.5) L 11/04/18 06:47 RDW 18.8 % (11.5-14.5) H 11/04/18 06:47 Plt Count 459 K/mcL (140-400) H 11/04/18 06:47 MPV 8.2 fL (9.4-12.4) L 11/04/18 06:47 ESR >= 130 mm/hr (0-15) H 11/03/18 08:12 PT 12.7 Seconds (9.4-12.1) H 11/03/18 08:12 Glucose 150 mg/dL (70-105) H 11/04/18 06:47 POC Glucose 156 mg/dL (70-99) H 11/03/18 21:21 7.5 % (-5.6) H 11/03/18 08:12 0.2 mg/dL (0.3-1.0) L 11/03/18 08:12 AST 11 Units/L (13-39) L 11/03/18 08:12 128 Units/L (34-104) H 11/03/18 08:12 76 mg/L (Less than 10) H 11/03/18 08:12 4.6 g/dL (2.4-3.5) H 11/03/18 08:12 0.9 (1.1-2.2) L 11/03/18 08:12 Consult Discharge Plan - Plan Referrals: Walter Merino MD [Primary Care Provider] -
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
[2018-11-04] MEDS ORDERED: *HR* LORazepam 2 MG/ML VIAL IVP ONE (10:03)
[2018-11-04] MEDS: OXYCODONE Oral CONC 10 MG/0.5 ML ORAL.SYG SL PRN ×3 (11:41→21:46)
--- NOTE | 2018-11-04 11:53 | Infectious Disease Progress No ---
ID Progress Note Date of Encounter: 11/04/18 Time of Encounter: 11:20 - Subjective Subjective: Patient seen and examined. No acute events noted overnight. Patient tearful and agitated in the room. She complains of worsening right hip pain and states the pain is migrating towards the outside of her thigh. Denies fevers, chills, or rigors. Denies chest pain, shortness of breath, or cough. Denies nausea, vomiting, diarrhea, or constipation. Denies abdominal pain. Weinberg catheter remains patent. No oral thrush or skin lesions noted. Pending CT-guided aspiration of the fluid collection noted on the CT scan. - Objective CBC & Chem 7: 11/04/18 06:47 11/04/18 06:47 - Exam Vitals: Temp Pulse Resp BP Pulse Ox 98.2 F 107 18 125/83 95 11/04/18 11:36 11/04/18 11:36 11/04/18 11:36 11/04/18 11:36 11/04/18 11:36 Exam: Head: Atraumatic, normal inspection, normocephalic. Eye: EOMI, PERRLA, no scleral icterus noted. ENT: Mucous membranes moist. No odontogenic infection noted. Neck: Normal inspection, no meningismus. Respiratory: Clear to auscultation. No rales, respiratory distress, rhonchi, or wheezes noted. Cardiovascular: Regular rate and rhythm, S1 and S2 audible. No murmurs, rubs, or gallops. GI: Soft, nondistended, normal bowel sounds. Extremities:No joint swelling, pedal edema, or tenderness noted. Right hip surgical sites well-healed without drainage, erythema, or warmth. Small scabbed lesion noted above the surgical incision (previous drain site) and small scabbed lesion noted to the middle of the lateral thigh surgical site without surrounding erythema, warmth, tenderness, or drainage. Back: Normal inspection. No vertebral tenderness noted. Neurological: Alert, oriented 3, no focal deficits. Psychiatric: normal affect, normal mood. Skin: Dry, intact, warm. Normal color. No rashes. - Assessment and Plan (1) Infection of right prosthetic hip joint Current Visit: No Status: Chronic Location: Right hip. Causative organism: MRSA Likely secondary to recent surgical procedure and nonhealing of the wound. No imaging of the hip was completed preop. Cultures obtained of the purulent drainage prior to surgery were positive for MRSA. Status post right hip irrigation and debridement 10/07/18. There was dehiscence noted in the fascia that went all the way down to the joint space, but no purulence was noted Intra-Op. Intra-Op cultures were positive for MRSA. Completed almost 4 weeks of Vanc and Rifampin. ESR remains elevated at >130, but CRP improved. CT of the right hip 11/03/18 shows a complex fluid collection 4.6 x 8.6 m highly concerning for abscess extending to communicate with the joint line. Interventional radiology consult. Scheduled for CT-guided aspiration of the fluid collection later today. Currently on vancomycin and rifampin. Qualifiers: Encounter type: subsequent encounter Qualified Code(s): T84.51XD - Infection and inflammatory reaction due to internal right hip prosthesis, subsequent encounter SNOMED Code(s): 003761458, 246673740 (2) Right femoral fracture Current Visit: Yes Status: Ruled-out Ruled out. Right hip XR shows findings concerning for periprosthetic femur fracture. Orthopedics consulted. CT scan of the right hip negative for acute fracture. Qualifiers: Encounter type: initial encounter Femur location: unspecified portion of femur Fracture type: closed Fracture morphology: unspecified fracture morphology Qualified Code(s): S72.91XA - Unspecified fracture of right femur, initial encounter for closed fracture SNOMED Code(s): 60625286 (3) Status post revision of total hip Current Visit: No Status: Chronic June 2018-right revision femoral component total hip, ORIF periprosthetic femur fracture. SNOMED Code(s): 644291988, 523989313, 885341391, 746303616 (4) Status post total hip replacement, right Current Visit: No Status: Chronic Robotic total hip replacement 06/17/18. SNOMED Code(s): 899027281483, 457419991543 (5) TANISHA (obstructive sleep apnea) Current Visit: No Status: Chronic SNOMED Code(s): 16829763 (6) COPD (chronic obstructive pulmonary disease) Current Visit: No Status: Chronic Qualifiers: COPD type: unspecified COPD Qualified Code(s): J44.9 - Chronic obstructive pulmonary disease, unspecified SNOMED Code(s): 12226042 (7) Diabetes mellitus Current Visit: Yes Status: Chronic Recommend aggressive glucose monitoring and control to promote wound healing and prevent reinfection. Management per the primary team. Qualifiers: Diabetes mellitus type: type 2 Diabetes mellitus senior care insulin use: without superintendent container terminal use Diabetes mellitus complication status: with hyperglycemia Qualified Code(s): E11.65 - Type 2 diabetes mellitus with hyperglycemia SNOMED Code(s): 71154425 (8) Hypothyroidism Current Visit: Yes Status: Acute Qualifiers: Qualified Code(s): E03.9 - Hypothyroidism, unspecified SNOMED Code(s): 38669489 - Recommendations Recommendations: Await blood cultures to finalize. Await drainage of the fluid collection in the right hip. Since specimen for cell count with differential and culture (AFB, fungal, anaerobic, aerobic). Await further recommendations from the ortho team. Continue Vancomycin IV. Pharmacy to dose. Goal trough ~15. Continue rifampin 300mg PO TID. Duration of treatment depends on the clinical picture. Monitor renal function and for drug toxicity and dose-adjust antibiotics. Consult Discharge Plan - Plan Referrals: Walter Merino MD [Primary Care Provider] -
--- NOTE | 2018-11-04 12:33 | Internal Med Progress Note ---
Hospitalist Progress Note - Encounter Date of Encounter: 11/04/18 Time of Encounter: 12:31 - Subjective Interval History: Patient seen and examined at bedside. Patient states that she is extremely anxious today. She states she is hungry and is anxious about having a procedure done today. She reports pain in the right hip. She denies any fevers or ch ills. - Exam Vitals: Temp Pulse Resp BP Pulse Ox 98.2 F 107 18 125/83 95 11/04/18 11:36 11/04/18 11:36 11/04/18 11:36 11/04/18 11:36 11/04/18 11:36 Exam: Gen.: Alert and oriented 3, appears anxious Lungs: Clear to auscultation bilaterally, no rales, rhonchi, wheezes Musculoskeletal: Right hip, mildly swollen. Large surgical scar present, no drainage or erythema appreciated. Mildly tender to palpation. - Assessment and Plan (1) Infection of right prosthetic hip joint Current Visit: Yes Status: Chronic Assessment and Plan: Patient noted to have fluid collection on CT with communication with joint space. Orthopedics consulted and recommended CT aspiration of the fluid collection. Patient has had previous MRSA infection in this right hip. Further management per orthopedics pending CT aspiration results. Continue IV vancomycin and by mouth rifampin per infectious disease recommendations. (2) Right femoral fracture Current Visit: Yes Status: Ruled-out Assessment and Plan: Periprosthetic fracture which per orthopedic note was present previously. Further management per orthopedics. (3) Diabetes mellitus Current Visit: Yes Status: Chronic Assessment and Plan: Blood sugars under good control. Continues on a scale insulin. Continue to monitor blood sugars and adjust insulin regimen as necessary. Hemoglobin A1c noted to be 7.5. (4) Morbid obesity with BMI of 45.0-49.9, adult Current Visit: Yes Status: Chronic Assessment and Plan: Encourage weight loss (5) Hypothyroidism Current Visit: Yes Status: Acute (6) DVT prophylaxis Current Visit: Yes Status: Acute Assessment and Plan: heparin sc - Time Spent with Patient Total time spent is greater than 50% in coordination of care (as documented) at patient's floor/unit and/or counseling patient: Internal Medicine: Result - Labs CBC & Chem 7: 11/04/18 06:47 11/04/18 06:47 Labs: Short CBC 11/04/18 Range/Units 06:47 WBC 6.5 D (4.3-11.1) K/mcL Hgb 10.6 L (11.5-15.4) g/dL Hct 34.8 L (35.3-44.9) % Plt Count 459 H (140-400) K/mcL Neutrophils # 3.8 (1.6-8.9) K/mcL BMP 11/04/18 06:47 Sodium 138 Potassium 4.1 Chloride 102 Carbon Dioxide 25 BUN 8 Creatinine 0.72 Glucose 150 H Calcium 9.4 - ABG Interpretation ABG results: PT/INR, D-dimer PT 12.7 Seconds (9.4-12.1) H 11/03/18 08:12 - Impressions Impressions Hip CT 11/03/18 13:54 IMPRESSION: Status post right total hip arthroplasty revision with complex fluid collection 4.6 x 8.6 cm highly concerning for abscess. This extends to communicate with the joint line. Recommend debridement or aspiration. Developing cortical defect proximal margin of the femoral component representing subacute healing fracture. The possibility of postinfectious origin cannot be excluded. D/ / 11/03/2018 16:35:02 Sid Spear MD / [facility] Interpreting Provider: Sid Spear MD Consult Discharge Plan - Plan Referrals: Walter Merino MD [Primary Care Provider] - (1) Infection of right prosthetic hip joint Qualifiers: Encounter type: subsequent encounter Qualified Code(s): T84.51XD - Infection and inflammatory reaction due to internal right hip prosthesis, subsequent encounter (2) Right femoral fracture Qualifiers: Encounter type: initial encounter Femur location: unspecified portion of femur Fracture type: closed Fracture morphology: unspecified fracture morphology Qualified Code(s): S72.91XA - Unspecified fracture of right femur, initial encounter for closed fracture (3) Diabetes mellitus Qualifiers: Diabetes mellitus type: type 2 Diabetes mellitus oysterman insulin use: without shelter use Diabetes mellitus complication status: with hyperglycemia Qualified Code(s): E11.65 - Type 2 diabetes mellitus with hyperglycemia (5) Hypothyroidism Qualifiers: Qualified Code(s): E03.9 - Hypothyroidism, unspecified
[2018-11-04 19:17] LABS: Appearance of Body Fluid Cloudy (Clear); Source of Body Fluid Right hip fluid coll; Volume of Body Fluid 7 mL
[2018-11-05 05:27] LABS: BUN/Creatinine Ratio 12 (6-26); Blood Urea Nitrogen 10 mg/dL (6-20); Carbon Dioxide 27 mEq/L (23-29); Chloride 102 mEq/L (98-107); Glucose 134 mg/dL (70-105); Osmolality,Calculated 289 (280-300); Potassium 3.7 mEq/L (3.5-5.1); Sodium 139 mEq/L (136-145); eGFR For Non-African Americans > 60 (> 60)
[2018-11-05] MEDS: OXYCODONE Oral CONC 10 MG/0.5 ML ORAL.SYG SL PRN ×2 (05:35→15:22)
[2018-11-05] MEDS: *HR* Heparin 5,000 UNIT/ML VIAL SQ SCH ×2 (05:35→18:09)
[2018-11-05 05:47] LABS: Basophils % 0.9 %; Eosinophils # 0.2 K/mcL (0.0-0.6); Eosinophils % 4.1 %; Hematocrit 30.9 % (35.3-44.9); Hemoglobin 9.3 g/dL (11.5-15.4); Immature Granulocytes % 0.7 % (0-4); Lymphocytes # 1.4 K/mcL (0.6-4.6); Lymphocytes % 31.3 %; Mean Corpuscular HGB Conc 30.1 g/dL (31.6-35.5); Mean Corpuscular Hemoglobin 25.5 pg (28.0-33.3); Mean Corpuscular Volume 84.9 fL (83.0-100.0); Mean Platelet Volume 8.4 fL (9.4-12.4); Monocytes # 0.4 K/mcL (0.0-1.3); Monocytes % 10.1 %; Neutrophils # 2.3 K/mcL (1.6-8.9); Platelet Count 396 K/mcL (140-400); Red Blood Count 3.64 M/mcL (3.82-4.97); Red Cell Distribution Width 18.8 % (11.5-14.5); Segmented Neutrophils % 52.9 %
--- NOTE | 2018-11-05 08:02 | Event Note ---
Date of Encounter: 11/04/18 Time of Encounter: 12:[address] guided aspiration earlier today Drain noted to be in place with serosanguinous fluid noted to be draining. Patient admits to ongoing pain with swelling of the leg. Asking about how long inpatient Discussed that since she has been on IV abx we need to await culture results to verify no new bacteria or antibiotic resistance. Patient verbalized understanding. Patient seen at bedside. A&Ox3. No acute distress Dressing and incision c/d/i. Again drain as above. No calf tenderness, erythema, or warmth. Neurovascularly intact b/l LE. Labwork, vitals, and medications reviewed. Pain control: Adequate All questions and concerns addressed. Educated on use of incentive spirometer, ambulation, and hydration. Patient educated on post-operative restrictions and care. Addressed: see above. D/C plan: await culture results History: Ms. Green is a 48 year old female well known to [facility]. Patient presented to ED for evaluation after sitting onto commode last night and per patient felt a "pop" to the hip region and subsequently developed significant right hip/groin pain with significant pain with weight bearing. Patient states that she is sure something is wrong with her hip as she states it feels similar to when she fell causing a periprosthetic fracture in 06/2018. She admits to most significantly groin pain with radiation to the right labia. She admits to significant pain in the anterior hip and groin with weightbearing. Denies pain in buttocks or posterior incision. Denies drainage from incision. Denies headache, chest pain, shortness of breath, or new numbness/tingling. Patient has a complex history with recent admission and surgery in mid-September 2018 after she presented to outpatient [facility] office on 10/05 with complaints of right hip pain. Upon obtaining xray films, mariely pus and fluid drainage began expressing from right hip incision at pinhole site per record. Patient was direct admitted to hospitalist team 10/05 with plan for orthopedic intervention. Patient left AMA on 10/06 for concerns regarding her home status, however, patient was in contact with [facility] office and returned for surgical irrigation and debridement of draining right hip on 10/07. Intraop findings demonstrated 4 cm dehiscence of the fascia with no mariely purulence noted. Extensive debridement performed by Dr. Mchugh with avoidance of dislocation of the hip based on the patient's complicated history of a fall in the postop window sustaining a periprosthetic femur fracture requiring right hip revision with femur orif on 07/16/18 following her initial hip replacement performed on 06/17/18. Patient also found to have MRSA bacteremia from blood cultures performed on initial admission 10/05/18. Intraoperative cultures resulted to finding of MRSA Hospitalist team was then consulted for assistance with medical management. Infectious disease was consulted and patient had PICC placement following negative repeat blood cultures and negative findings on KELLY/TTE Patient discharged home with home health services with antibiotic orders of PO Levaquin, PO Rifampin, IV Vancomycin (Goal trough 15) on 10/12/18 and has been on Vanc and Rifampin since and denies missing any doses. On exam patient resting comfortably supine. Weinberg noted with clear, yellow urine. Patient alert and oriented in no acute distress. Tender to palpation along groin and anterior thigh. ROM right hip limited secondary to pain. ROM knee and ankle intact. Xrays reviewed - concern from radiologist re: possible new fractures. Discussed with Dr. Mchugh and Gauri Olivera and Dr. Reddy with Infectious disease. Xrays on comparison with previous from September do not appear dissimilar. Given patient's concern and complex history as well as medical comborbidities concern for occult fracture versus fluid collection/abscess present. After further discussion with the above parties, will proceed with CT imaging with contrast. Discussed xrays and Ct scan with Dr. Spear, radiologist at length. Reviewed patient's history and present complaints. Concern for abscess remains though patient has had history of draining wound and surgery appx 4 weeks ago. Patient has been on IV antibiotics. Dr. Spear states aspiration could be unsuccessful secondary to complexity of collection. Impression as follows: CT/CT hip RT w con IMPRESSION: Status post right total hip arthroplasty revision with complex fluid collection 4.6 x 8.6 cm highly concerning for abscess. This extends to communicate with the joint line. Recommend debridement or aspiration. Developing cortical defect proximal margin of the femoral component representing subacute healing fracture. The possibility of postinfectious origin cannot be excluded. D/ / 11/03/2018 16:35:02 Sid Spear MD / [facility] Interpreting Provider: Sid Spear MD Reviewed case with Dr. Mchugh and Dr. Reddy again. Dr. Mchugh states will reevaluate tomorrow after further testing by ID. Dr. Reddy states will order non-invasive testing at this time. Await further results for further recommendation. Thank you for this consultation. Please reach out with any concerns or questions.
--- NOTE | 2018-11-05 08:03 | Event Note ---
Date of Encounter: 11/05/18 Time of Encounter: 12:[address] guided aspiration on 11/04 Drain noted to be in place with serosanguinous fluid noted with coagulated drainage to right hip. Patient admits to ongoing pain with swelling of the leg. Asking about how long inpatient - awaiting culture results Discussed that since she has been on IV abx we need to await culture results to verify no new bacteria or antibiotic resistance. Patient verbalized understanding. Patient continues to c/o right leg weakness and pain in the RLE since sudden "pop" and pain described on presentation to ED. Patient seen at bedside. Resting comfortably in bed. A&Ox3. No acute distress Dressing and incision c/d/i. Again drain as above. No calf tenderness, erythema, or warmth. Neurovascularly intact b/l LE. Labwork, vitals, and medications reviewed. Pain control: Adequate All questions and concerns addressed. Educated on use of incentive spirometer, ambulation, and hydration. Patient educated on post-operative restrictions and care. Addressed: awaiting culture results D/C plan: await culture results
[2018-11-05] MEDS ORDERED: Acetaminophen 325 MG TABLET PO PRN (08:26)
[2018-11-05] MEDS: Aspirin Enteric Coated 81 MG Tablet PO SCH (08:36)
[2018-11-05] MEDS: Gabapentin 300 MG CAPSULE PO SCH ×3 (08:36→20:17)
[2018-11-05] MEDS: rifAMPin 150 MG CAPSULE PO SCH ×3 (08:36→20:16)
[2018-11-05] MEDS: Insulin LISPRO 300 UNITS/3 ML VIAL SQ SCH ×3 (08:37→16:56)
--- NOTE | 2018-11-05 08:46 | Orthopedics Progress Note ---
Date of Encounter: 11/05/18 Time of Encounter: 06:30 Subjective Interval history: Patient seen this morning, patient resting comfortably, patient with drain from right hip draining serosanguineous. Gram stain negative for bacteria. Awaiting culture results. Continue with IV antibiotics Objective Vital signs: Vital Signs Temp Pulse Resp BP Pulse Ox 11/05/18 04:28 98.6 F 108 16 105/69 94 11/04/18 23:55 99.6 F 103 16 124/83 96 11/04/18 19:54 99.9 F H 106 16 121/74 97 11/04/18 17:09 98.1 F 108 16 137/80 94 11/04/18 14:29 98.8 F 120 16 126/68 97 11/04/18 11:36 98.2 F 107 18 125/83 95 Intake and Output 11/04/18 11/05/18 11/05/18 23:59 07:59 15:59 Intake Total 240 / 740 500 / 500 Output Total 570 / 1530 870 / 870 Balance -330 / -790 -370 / -370 Intake: IV Fluids 500 / 500 Vancocin 2,000 MG In 0.9 % 500 / 500 Sodium Chloride 500 ML @ 250 mls/hr IVPB Q12H [facility] Rx#: [id number] Oral 240 / 240 Output: Urine 550 / 550 850 / 850 Wound Drainage Right Hip Other: Meal Dinner Percent of Meal Consumed 75% Weight 131.9 kg Blood Glucose* 127 143 Patient Weight 11/05/18 23:59 Weight 131.9 kg - Labs CBC & BMP: 11/05/18 04:12 11/05/18 04:12 Labs: Abnormal lab results WBC 4.1 K/mcL (4.3-11.1) L 11/03/18 08:12 RBC 3.64 M/mcL (3.82-4.97) L 11/05/18 04:12 Hgb 9.3 g/dL (11.5-15.4) L 11/05/18 04:12 Hct 30.9 % (35.3-44.9) L 11/05/18 04:12 MCH 25.5 pg (28.0-33.3) L 11/05/18 04:12 MCHC 30.1 g/dL (31.6-35.5) L 11/05/18 04:12 RDW 18.8 % (11.5-14.5) H 11/05/18 04:12 Plt Count 459 K/mcL (140-400) H 11/04/18 06:47 MPV 8.4 fL (9.4-12.4) L 11/05/18 04:12 ESR >= 130 mm/hr (0-15) H 11/03/18 08:12 PT 12.7 Seconds (9.4-12.1) H 11/03/18 08:12 Glucose 134 mg/dL (70-105) H 11/05/18 04:12 POC Glucose 127 mg/dL (70-99) H 11/04/18 19:52 7.5 % (-5.6) H 11/03/18 08:12 0.2 mg/dL (0.3-1.0) L 11/03/18 08:12 AST 11 Units/L (13-39) L 11/03/18 08:12 128 Units/L (34-104) H 11/03/18 08:12 76 mg/L (Less than 10) H 11/03/18 08:12 4.6 g/dL (2.4-3.5) H 11/03/18 08:12 0.9 (1.1-2.2) L 11/03/18 08:12 Fluid Appearance Cloudy (Clear) A 11/04/18 12:32 Consult Discharge Plan - Plan Referrals: Walter Merino MD [Primary Care Provider] -
[2018-11-05] MEDS ORDERED: *HR* Alteplase (Cathflo) 2 MG VIAL IVP ONE (09:13)
--- NOTE | 2018-11-05 10:48 | Infectious Disease Progress No ---
ID Progress Note Date of Encounter: 11/05/18 Time of Encounter: 10:25 - Subjective Subjective: Patient seen and examined. No acute events noted overnight. Patient states right hip pain improved, but she states her right leg is very weak and heavy. She denies numbness or tingling and has full ROM/strength of the bilateral feet. Denies fevers, chills, or rigors. Denies chest pain, shortness of breath, or cough. Denies nausea, vomiting, diarrhea, or constipation. Denies abdominal pain or urinary complaints. No oral thrush or skin lesions noted. - Objective CBC & Chem 7: 11/05/18 04:12 11/05/18 04:12 - Exam Vitals: Temp Pulse Resp BP Pulse Ox 98.6 F 108 16 105/69 94 11/05/18 04:28 11/05/18 04:28 11/05/18 04:28 11/05/18 04:28 11/05/18 04:28 Exam: Head: Atraumatic, normal inspection, normocephalic. Eye: EOMI, PERRLA, no scleral icterus noted. ENT: Mucous membranes moist. No odontogenic infection noted. Neck: Normal inspection, no meningismus. Respiratory: Clear to auscultation. No rales, respiratory distress, rhonchi, or wheezes noted. Cardiovascular: Regular rate and rhythm, S1 and S2 audible. No murmurs, rubs, or gallops. GI: Soft, nondistended, normal bowel sounds. Extremities: No joint swelling, pedal edema, or tenderness noted. Right hip surgical sites well-healed without drainage, erythema, or warmth. Small scabbed lesion noted above the surgical incision (previous drain site). No surrounding erythema, warmth, tenderness, or drainage. RODNEY drain noted to the right hip with small amount of serosanguinous drainage noted. Neurological: Alert, oriented 3, no focal deficits. BUE and BLE strength 5/5. + PMS to all extremities x 4. Psychiatric: normal affect, normal mood. Skin: Dry, intact, warm. Normal color. No rashes. 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 Causative organism: MRSA Likely secondary to recent surgical procedure and nonhealing of the wound. No imaging of the hip was completed preop. Cultures obtained of the purulent drainage prior to surgery were positive for MRSA. Status post right hip irrigation and debridement 10/07/18. There was dehiscence noted in the fascia that went all the way down to the joint space, but no purulence was noted Intra-Op. Intra-Op cultures were positive for MRSA. Completed almost 4 weeks of Vanc and Rifampin. ESR remains elevated at >130, but CRP improved. CT of the right hip 11/03/18 shows a complex fluid collection 4.6 x 8.6 m highly concerning for abscess extending to communicate with the joint line. Interventional radiology consulted. Status post CT-guided aspiration and drain placement in the right hip fluid collection. TNC high with mostly neutrophils. Culture is no growth. Currently on vancomycin and rifampin. Qualifiers: Encounter type: subsequent encounter Qualified Code(s): T84.51XD - Infection and inflammatory reaction due to internal right hip prosthesis, subsequent encounter SNOMED Code(s): 657851117, 648724870 (2) Right femoral fracture Current Visit: Yes Status: Ruled-out Ruled out. Right hip XR shows findings concerning for periprosthetic femur fracture. Orthopedics consulted. CT scan of the right hip negative for acute fracture. Qualifiers: Encounter type: initial encounter Femur location: unspecified portion of femur Fracture type: closed Fracture morphology: unspecified fracture mo rphology Qualified Code(s): S72.91XA - Unspecified fracture of right femur, initial encounter for closed fracture SNOMED Code(s): 25445028 (3) Status post revision of total hip Current Visit: No Status: Chronic June 2018-right revision femoral component total hip, ORIF periprosthetic femur fracture. SNOMED Code(s): 633903512, 996113305, 234893521, 508728351 (4) Status post total hip replacement, right Current Visit: No Status: Chronic Robotic total hip replacement 06/17/18. SNOMED Code(s): 431330810333, 932851973886 (5) TANISHA (obstructive sleep apnea) Current Visit: No Status: Chronic SNOMED Code(s): 00442873 (6) COPD (chronic obstructive pulmonary disease) Current Visit: No Status: Chronic Qualifiers: COPD type: unspecified COPD Qualified Code(s): J44.9 - Chronic obstructive pulmonary disease, unspecified SNOMED Code(s): 04859103 (7) Diabetes mellitus Current Visit: Yes Status: Chronic Recommend aggressive glucose monitoring and control to promote wound healing and prevent reinfection. Management per the primary team. Qualifiers: Diabetes mellitus type: type 2 Diabetes mellitus longterm insulin use: without ferry terminal agent use Diabetes mellitus complication status: with hyperglycemia Qualified Code(s): E11.65 - Type 2 diabetes mellitus with hyperglycemia SNOMED Code(s): 11089323 (8) Hypothyroidism Current Visit: Yes Status: Acute Qualifiers: Qualified Code(s): E03.9 - Hypothyroidism, unspecified SNOMED Code(s): 32738660 (9) Right leg weakness Current Visit: Yes Status: Acute Etiology unclear. BUE and BLE strengths 10/25. Consider neurology to evaluate. SNOMED Code(s): 445313213 - Recommendations Recommendations: Await blood cultures to finalize. Await right hip cultures. Await further recommendations from the ortho team. Consider neurology to evaluate for RLE weakness. Continue Vancomycin IV. Pharmacy to dose. Goal trough ~15. Continue rifampin 300mg PO TID. Duration of treatment depends on the clinical picture. Monitor renal function and for drug toxicity and dose-adjust antibiotics. Consult Discharge Plan - Plan Referrals: Walter Merino MD [Primary Care Provider] - - Attending Attestation I have personally performed a face to face evaluation on this patient. I have reviewed and agree with the care plan. History and Exam by me shows: 1.Right hip pain etiology not clear fracture versus hematoma versus abscess. Discussed with orthopedic team status post CT scan with fluid collection. We will send for drainage and sent for cell count, chemistry, Gram stain and cultures 3.Infected and right hip prosthesis causative organism MRSA currently on IV van comycin and by mouth rifampin 4.Status post revision of total hip Recommendation So far fluid analysis Gram stain and cultures all revealed no infection RODNEY drain not working well. Escorts with evaluate to see if the need to flush it because I think it is bloody and it is coagulated Continue vancomycin and oral rifampin 4% joint infection with MRSA that was previously diagnosed
--- NOTE | 2018-11-05 11:21 | Internal Med Progress Note ---
Hospitalist Progress Note - Encounter Date of Encounter: 11/05/18 Time of Encounter: :19 - Subjective Interval History: Patient seen and examined at bedside. She reports persistent pain in her right hip. She states this feels the same as yesterday. She denies any fevers or chills. - Exam Vitals: Temp Pulse Resp BP Pulse Ox 98.6 F 108 16 105/69 94 11/05/18 04:28 11/05/18 04:28 11/05/18 04:28 11/05/18 04:28 11/05/18 04:28 Exam: Gen.: Alert and oriented 3, appears anxious Lungs: Clear to auscultation bilaterally, no rales, rhonchi, wheezes Musculoskeletal: Right hip, mildly swollen. Large surgical scar present, no drainage or erythema appreciated. Mildly tender to palpation. 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 Culture pending. Continue vancomycin and rifampin per ID recommendations and await final culture results. Further surgical intervention recommendations per orthopedic surgery. (2) Right femoral fracture Current Visit: Yes Status: Ruled-out (3) Diabetes mellitus Current Visit: Yes Status: Chronic Assessment and Plan: Blood sugars under good control. Continue sliding scale insulin coverage (4) Morbid obesity with BMI of 45.0-49.9, adult Current Visit: Yes Status: Chronic Assessment and Plan: Encourage weight loss (5) Hypothyroidism Current Visit: Yes Status: Acute Assessment and Plan: Continue levothyroxine (6) DVT prophylaxis Current Visit: Yes Status: Acute Assessment and Plan: heparin sc - Time Spent with Patient Total time spent is greater than 50% in coordination of care (as documented) at patient's floor/unit and/or counseling patient: Internal Medicine: Result - Labs CBC & Chem 7: 11/05/18 04:12 11/05/18 04:12 Labs: Short CBC 11/05/18 Range/Units 04:12 WBC 4.3 (4.3-11.1) K/mcL Hgb 9.3 L (11.5-15.4) g/dL Hct 30.9 L (35.3-44.9) % Plt Count 396 (140-400) K/mcL Neutrophils # 2.3 (1.6-8.9) K/mcL BMP 11/05/18 04:12 Sodium 139 Potassium 3.7 Chloride 102 Carbon Dioxide 27 BUN 10 Creatinine 0.81 Glucose 134 H Calcium 9.0 - ABG Interpretation ABG results: PT/INR, D-dimer PT 12.7 Seconds (9.4-12.1) H 11/03/18 08:12 - Impressions Impressions Needle Aspiration CT 11/04/18 09:00 IMPRESSION: Successful CT guided placement of right hip abscess drainage catheter. D/ / Derek South MD / Derek South MD Interpreting Provider: Derek South MD Consult Discharge Plan - Plan Referrals: Walter Merino MD [Primary Care Provider] - (1) Infection of right prosthetic hip joint Qualifiers: Encounter type: subsequent encounter Qualified Code(s): T84.51XD - Infection and inflammatory reaction due to internal right hip prosthesis, subsequent encounter (2) Right femoral fracture Qualifiers: Encounter type: initial encounter Femur location: unspecified portion of femur Fracture type: closed Fracture morphology: unspecified fracture morphology Qualified Code(s): S72.91XA - Unspecified fracture of right femur, initial encounter for closed fracture (3) Diabetes mellitus Qualifiers: Diabetes mellitus type: type 2 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
[2018-11-06] MEDS: *HR* Heparin 5,000 UNIT/ML VIAL SQ SCH ×2 (05:48→18:47)
[2018-11-06 06:11] LABS: Basophils # 0.1 K/mcL (0.0-0.2); Basophils % 0.9 %; Eosinophils # 0.2 K/mcL (0.0-0.6); Eosinophils % 4.2 %; Hematocrit 32.8 % (35.3-44.9); Immature Granulocytes % 0.6 % (0-4); Lymphocytes # 1.6 K/mcL (0.6-4.6); Lymphocytes % 29.1 %; Mean Corpuscular HGB Conc 30.5 g/dL (31.6-35.5); Mean Corpuscular Hemoglobin 25.5 pg (28.0-33.3); Mean Corpuscular Volume 83.7 fL (83.0-100.0); Mean Platelet Volume 8.3 fL (9.4-12.4); Monocytes # 0.4 K/mcL (0.0-1.3); Monocytes % 7.9 %; Neutrophils # 3.1 K/mcL (1.6-8.9); Platelet Count 397 K/mcL (140-400); Red Blood Count 3.92 M/mcL (3.82-4.97); Red Cell Distribution Width 19.1 % (11.5-14.5); Segmented Neutrophils % 57.3 %
[2018-11-06 06:24] LABS: BUN/Creatinine Ratio 11 (6-26); Blood Urea Nitrogen 8 mg/dL (6-20); Calcium 9.3 mg/dL (8.6-10.3); Carbon Dioxide 25 mEq/L (23-29); Chloride 102 mEq/L (98-107); Glucose 156 mg/dL (70-105); Magnesium 2.1 mg/dL (1.6-2.6); Osmolality,Calculated 288 (280-300); Potassium 3.9 mEq/L (3.5-5.1); Sodium 138 mEq/L (136-145); eGFR For Non-African Americans > 60 (> 60)
[2018-11-06] MEDS: Aspirin Enteric Coated 81 MG Tablet PO SCH (09:55)
[2018-11-06] MEDS: Gabapentin 300 MG CAPSULE PO SCH ×3 (09:55→21:49)
[2018-11-06] MEDS: rifAMPin 150 MG CAPSULE PO SCH ×3 (09:55→21:49)
[2018-11-06] MEDS: Insulin LISPRO 300 UNITS/3 ML VIAL SQ SCH ×3 (09:56→18:47)
--- NOTE | 2018-11-06 11:55 | Event Note ---
Date of Encounter: 11/06/18 Time of Encounter: 13:[address] guided aspiration on 11/04 Drain noted to be in place with serosanguinous fluid noted with coagulated drainage to right hip. Patient admits to ongoing pain with swelling of the leg. Asking about how long inpatient - awaiting culture results Discussed that since she has been on IV abx we need to await culture results to verify no new bacteria or antibiotic resistance. Patient verbalized understanding. Patient seen by Neurology for eval of sudden onset right leg weakness - awaiting MRI lumbar spine Patient seen at bedside. Sitting in chair. A&Ox3. No acute distress Dressing and incision c/d/i. Again drain as above. No calf tenderness, erythema, or warmth. Neurovascularly intact b/l LE. Labwork, vitals, and medications reviewed. Pain control: Adequate All questions and concerns addressed. Educated on use of incentive spirometer, ambulation, and hydration. Patient educated on post-operative restrictions and care. Addressed: Attempted to pull drain however patient declining at this time as she states she has to go to the bathroom and housekeeping needs to clean her room from where her lunch tray was spilled. Will request charge nurse from [facility] pull drain. D/C plan: await culture results
--- NOTE | 2018-11-06 11:56 | Infectious Disease Progress No ---
ID Progress Note Date of Encounter: 11/06/18 Time of Encounter: 11:20 - Subjective Subjective: Patient seen and examined. No acute events noted overnight. Patient states right hip pain improved, but she states her right leg is very weak and heavy. She denies numbness or tingling and has full ROM/strength of the bilateral feet. Denies fevers, chills, or rigors. Denies chest pain, shortness of breath, or cough. Denies nausea, vomiting, diarrhea, or constipation. Denies abdominal pain or urinary complaints. No oral thrush or skin lesions noted. States her appetite is okay. - Objective CBC & Chem 7: 11/09/18 05:50 11/09/18 05:50 - Exam Vitals: Temp Pulse Resp BP Pulse Ox 98.8 F 121 16 142/84 98 11/06/18 10:29 11/06/18 10:29 11/06/18 10:29 11/06/18 10:29 11/06/18 10:29 Exam: Head: Atraumatic, normal inspection, normocephalic. Eye: EOMI, PERRLA, no scleral icterus noted. ENT: Mucous membranes moist. No odontogenic infection noted. Neck: Normal inspection, no meningismus. Respiratory: Clear to auscultation. No rales, respiratory distress, rhonchi, or wheezes noted. Cardiovascular: Regular rate and rhythm, S1 and S2 audible. No murmurs, rubs, or gallops. GI: Soft, nondistended, normal bowel sounds. Extremities: No joint swelling, pedal edema, or tenderness noted. Right hip surgical sites well-healed without drainage, erythema, or warmth. Small scabbed lesion noted above the surgical incision (previous drain site). No surrounding erythema, warmth, tenderness, or drainage. RODNEY drain noted to the right hip with small amount of serosanguinous drainage noted. Neurological: Alert, oriented 3, no focal deficits. BUE and BLE strength 5/5. + PMS to all extremities x 4. Psychiatric: normal affect, normal mood. Skin: Dry, intact, warm. Normal color. No rashes. 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 Causative organism: MRSA Likely secondary to recent surgical procedure and nonhealing of the wound. No imaging of the hip was completed preop. Cultures obtained of the purulent drainage prior to surgery were positive for MRSA. Status post right hip irrigation and debridement 10/07/18. There was dehiscence noted in the fascia that went all the way down to the joint space, but no purulence was noted Intra-Op. Intra-Op cultures were positive for MRSA. Completed almost 4 weeks of Vanc and Rifampin. ESR remains elevated at >130, but CRP improved. CT of the right hip 11/03/18 shows a complex fluid collection 4.6 x 8.6 m highly concerning for abscess extending to communicate with the joint line. Interventional radiology consulted. Status post CT-guided aspiration and drain placement in the right hip fluid collection. TNC high with mostly neutrophils. Culture is no growth. Currently on vancomycin and rifampin. Qualifiers: Encounter type: subsequent encounter Qualified Code(s): T84.51XD - Infection and inflammatory reaction due to internal right hip prosthesis, subsequent encounter SNOMED Code(s): 594845015, 768983530 (2) Right femoral fracture Current Visit: Yes Status: Ruled-out Ruled out. Right hip XR shows findings concerning for periprosthetic femur fracture. Orthopedics consulted. CT scan of the right hip negative for acute fracture. Qualifiers: Encounter type: initial encounter Femur location: unspecified portion of femur Fracture type: closed Fracture morphology: unspecified fracture morphology Qualified Code(s): S72.91XA - Unspecified fracture of right femur, initial encounter for closed fracture SNOMED Code(s): 09165363 (3) Status post revision of total hip Current Visit: No Status: Chronic June 2018-right revision femoral component total hip, ORIF periprosthetic femur fracture. SNOMED Code(s): 546751229, 299682414, 901174852, 414592130 (4) Status post total hip replacement, right Current Visit: No Status: Chronic Robotic total hip replacement 06/17/18. SNOMED Code(s): 236001216994, 108914418911 (5) TANISHA (obstructive sleep apnea) Current Visit: No Status: Chronic SNOMED Code(s): 67242077 (6) COPD (chronic obstructive pulmonary disease) Current Visit: No Status: Chronic Qualifiers: COPD type: unspecified COPD Qualified Code(s): J44.9 - Chronic obstructive pulmonary disease, unspecified SNOMED Code(s): 05029041 (7) Diabetes mellitus Current Visit: Yes Status: Chronic Recommend aggressive glucose monitoring and control to promote wound healing and prevent reinfection. Management per the primary team. 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 BUE and BLE strengths 10/25. Neurology consult pending. SNOMED Code(s): 241399352 - Recommendations Recommendations: Await blood cultures to finalize. Await right hip cultures to finalize. Await further recommendations from the ortho team. Consider neurology to evaluate for RLE weakness. Continue Vancomycin IV. Pharmacy to dose. Goal trough ~15. Continue rifampin 300mg PO TID. Duration of treatment depends on the clinical picture. Monitor renal function and for drug toxicity and dose-adjust antibiotics. Consult Discharge Plan - Plan Referrals: Walter Merino MD [Primary Care Provider] - - Attending Attestation I have personally performed a face to face evaluation on this patient. I have reviewed and agree with the care plan. History and Exam by me shows: 1.Right hip pain etiology not clear fracture versus hematoma versus abscess. Discussed with orthopedic team status post CT scan with fluid collection. We will send for drainage and sent for cell count, chemistry, Gram stain and cultures 3.Infected and right hip prosthesis causative organism MRSA currently on IV vancomycin and by mouth rifampin 4.Status post revision of total hip Recommendation So far fluid analysis Gram stain and cultures all revealed no infection RODNEY drain not working well. Escorts with evaluate to see if the need to flush it because I think it is bloody and it is coagulated Continue vancomycin and oral rifampin for joint infection with MRSA that was pre viously diagnosed
--- NOTE | 2018-11-06 12:15 | Internal Med Progress Note ---
Hospitalist Progress Note - Encounter Date of Encounter: 11/06/18 Time of Encounter: 12:13 - Subjective Interval History: Patient seen and examined at bedside. Patient reports continued pain in her right hip. She also reports significant weakness in her right lower extremity. She states that she is having difficulty moving her right leg which she att ributes to pain in her hip. Denies any numbness or tingling. - Exam Vitals: Temp Pulse Resp BP Pulse Ox 98.8 F 121 16 142/84 98 11/06/18 10:29 11/06/18 10:29 11/06/18 10:29 11/06/18 10:29 11/06/18 10:29 Exam: Gen.: Alert and oriented 3, appears anxious Lungs: Clear to auscultation bilaterally, no rales, rhonchi, wheezes Musculoskeletal: Right hip, mildly swollen. Large surgical scar present, no drainage or erythema appreciated. Mildly tender to palpation. Neuro: Right lower extremity range of motion limited by pain. Because patient would not participate in full neurologic exam. Sensation intact. - Assessment and Plan (1) Right leg weakness Current Visit: Yes Status: Acute Assessment and Plan: Patient on right leg weakness that appears to be mainly caused by pain of her hip. She cannot participate in a full neurologic exam. I feel this may be related to her hip pathology however we will consult neurology for further recommendations. I did consider neuroimaging given the patient's recent postoperative changes and infection will defer any further imaging to neurology. (2) Infection of right prosthetic hip joint Current Visit: Yes Status: Chronic Assessment and Plan: Status post CT-guided aspiration of right hip fluid collection preliminary fluid analysis shows high total nucleated cell count with 82% segmented neutrophils. Culture pending but no growth to date. Continue vancomycin and rifampin per ID recommendations and await final culture results. Further surgical intervention recommendations per orthopedic surgery. (3) Right femoral fracture Current Visit: Yes Status: Ruled-out Assessment and Plan: Periprosthetic fracture which per orthopedic note was present previously. Further management per orthopedics. (4) Diabetes mellitus Current Visit: Yes Status: Chronic Assessment and Plan: Blood sugars under good control. Continue sliding scale insulin coverage (5) Morbid obesity with BMI of 45.0-49.9, adult Current Visit: Yes Status: Chronic Assessment and Plan: Encourage weight loss (6) Hypothyroidism Current Visit: Yes Status: Acute Assessment and Plan: Continue levothyroxine (7) DVT prophylaxis Current Visit: Yes Status: Acute Assessment and Plan: heparin sc - Time Spent with Patient Total time spent is greater than 50% in coordination of care (as documented) at patient's floor/unit and/or counseling patient: Internal Medicine: Result - Labs CBC & Chem 7: 11/06/18 05:54 11/06/18 05:54 Labs: Short CBC 11/06/18 Range/Units 05:54 WBC 5.4 (4.3-11.1) K/mcL Hgb 10.0 L (11.5-15.4) g/dL Hct 32.8 L (35.3-44.9) % Plt Count 397 (140-400) K/mcL Neutrophils # 3.1 (1.6-8.9) K/mcL BMP 11/06/18 05:54 Sodium 138 Potassium 3.9 Chloride 102 Carbon Dioxide 25 BUN 8 Creatinine 0.74 Glucose 156 H Calcium 9.3 - ABG Interpretation ABG results: PT/INR, D-dimer PT 12.7 Seconds (9.4-12.1) H 11/03/18 08:12 - Impressions Impressions Hip CT 11/03/18 13:54 IMPRESSION: Status post right total hip arthroplasty revision with complex fluid collection 4.6 x 8.6 cm highly concerning for abscess. This extends to communicate with the joint line. Recommend debridement or aspiration. Developing cortical defect proximal margin of the femoral component representing subacute healing fracture. The possibility of postinfectious origin cannot be excluded. D/ / 11/03/2018 16:35:02 Sid Spear MD / [facility] Interpreting Provider: Sid Spear MD Consult Discharge Plan - Plan Referrals: Walter Merino MD [Primary Care Provider] - (2) Infection of right prosthetic hip joint Qualifiers: Encounter type: subsequent encounter Qualified Code(s): T84.51XD - Infection and inflammatory reaction due to internal right hip prosthesis, subsequent encounter (3) Right femoral fracture Qualifiers: Encounter type: initial encounter Femur location: unspecified portion of femur Fracture type: closed Fracture morphology: unspecified fracture morphology Qualified Code(s): S72.91XA - Unspecified fracture of right femur, initial encounter for closed fracture (4) Diabetes mellitus Qualifiers: Diabetes mellitus type: type 2 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
[2018-11-06] MEDS: OXYCODONE Oral CONC 10 MG/0.5 ML ORAL.SYG SL PRN ×2 (16:06→21:50)
--- NOTE | 2018-11-06 16:19 | Neurology - Consult Note ---
<Garfield Perla J - Last Filed: 11/06/18 15:52> Date of Encounter: 11/06/18 Time of Encounter: 15:53 Assessment and Plan (1) Right leg weakness Current Visit: Yes Status: Acute Presented with rt leg weakness and pain Initially concerns for a fracture; has been ruled out with imaging Fluid collection found in rt hip; concerns for infection of prosthetic hip joint; On ABX, Ortho and ID following; RODNEY drain in place and cultures pending In regard to weakness, this appears to be mostly d/t pain with ROM; consider radicular cause of pain and as potentially contributing to weakness; r/o hematoma Neuro exam is non focal, DTR's are intact 1/4 diffusely Will get MRI lumbar spine for further evaluation c/w current pain measures If MRI imaging negative consider dedicated CT to r/o iliopsoas rupture Neurology will continue to follow History of Present Illness Chief complaint: right leg weakness HPI: Ms. Green is a 48 year old female with a PMH of arthritis, cancer, DM, HLD, hypothyroidism, and COPD. Sx hx includes bilateral hip replacement. Neurology has been consulted to evaluate for cause of right leg weakness. The patient presented to [facility] with right leg weakness and hip pain. She reports that she was in the restroom and attempted to stand and felt a "pop "in her lower back and right hip region and developed significant pain with weight bearing. Since then she has been having increasing difficulty moving her right leg both d/t pain and weakness. The pain is located in the right groin, right hip and right lumbar region and is worse with ROM and weight baring. She reports that she is now having increased difficulty with ROM d/t decreased strength to her right leg. Right hip CT reveals subacute healing fracture. At the time of my assessment she is continuing to report right leg weakness and pain with right hip movement. Denies any other concerns. Of note, she is being treated for MRSA infection of surgical site; she has been treated since mid-September 2018. Repeat CT hip imaging 11/03/18 identifying a complex fluid collection measuring 4.6x8.6cm; findings concerning for abscess. She is being followed by Ortho and ID and being treated with IV ABX. Past Med Surg Social Fam HX - Past Medical History Medical history: arthritis, cancer, COPD, diabetes, hyperlipidemia, thyroid di sease Additional medical history: Sleep Apnea, Graves Disease, uterine cancer Psychiatric history: depression - Past Surgical History Surgical History: hip replacement, hysterectomy, thyroidectomy, IVC filter Additional surgical history: 4 hip surgeries - Social History Smoking Status: Former smoker Smokeless Tobacco Status: No Alcohol use: none Drug use: none - Family History Father Living Status: Hx Family Cardiac Disorders: No Hx Family Respiratory Disorders: No Hx Family Cancer: Yes Hx Family GI Disorders: No Hx Family Endocrine Disorder: No Hx Family Neuromuscular Disorders: No Hx Family Neurologic Disorders: No Hx Family HEENT Disorders: No Hx Family Autoimmune Disorders: No Mother Hx Family Cardiac Disorders: Yes (HTN) Daughter Hx Family Psychosocial Disorders: Yes (anxiety and depression, bipolar,schi zophrenia) Medications and Allergies Albuterol Sulfate [Proair Hfa] 1 puff IH Q4H PRN 11/02/15 [History] Escitalopram [Lexapro] 20 mg PO DAILY 08/23/16 [History] Levothyroxine Sodium [Levo-T] 200 mcg PO DAILY 08/23/16 [History] Simvastatin [Zocor] 20 mg PO HS 06/12/17 [History] Cyclobenzaprine [Flexeril] 10 mg PO TID 06/17/18 [History] Ergocalciferol (VITAMIN D2) [Vitamin D2] 50,000 unit PO MO 06/17/18 [History] Furosemide [Lasix] 20 mg PO DAILY 06/17/18 [History] GlipiZIDE [Glipizide Xl] 5 mg PO DAILY 06/17/18 [History] Oxycodone HCl/Acetaminophen [Percocet 5-325 mg Tablet] 1 tab PO TID PRN 06/17/18 [History] Aspirin [Adult Aspirin] 81 mg PO DAILY 07/16/18 [History] Gabapentin [Neurontin] 600 mg PO TID 07/16/18 [History] Liraglutide [Victoza 2-Maximiliano] 0.6 mg SQ DAILY 07/16/18 [History] Vancomycin [Vancocin (wt based)] 2,000 mg IV Q12H #84 vial 10/12/18 [Rx] Amitriptyline [Elavil] 25 mg PO HS 11/03/18 [History] Celecoxib [Celebrex] 100 mg PO DAILY 11/03/18 [History] Pantoprazole Sodium [Protonix] 40 mg PO DAILY 11/03/18 [History] Allergy/AdvReac Type Severity Reaction Status Date / Time hydromorphone [From Dilaudid] AdvReac Nausea Verified 10/07/18 11:40 meperidine [From Demerol] AdvReac vomiting,fever, Verified 10/07/18 11:40 convulsions methimazole AdvReac swelling Verified 10/07/18 11:40 legs All Systems: The remainder of the systems were reviewed and are negative Review of Systems: REVIEW OF SYSTEMS NEUROLOGIC: Negative for any blurry vision, blind spots, double vision, facial asymmetry, dysphagia, dysarthria, hemiparesis, hemisensory deficits, parasthesias Positive- Unilateral weakness; rt leg MUSCULOSKELETAL: POSITIVE- loss of ROM to right leg, pain with range of motion, loss of strength right leg Physical Examination - Vital Signs Vital Signs: Initial Vital Signs Temp Pulse Resp BP Pulse Ox 98.8 F 108 16 129/96 96 11/03/18 05:00 11/03/18 05:00 11/03/18 05:00 11/03/18 05:00 11/03/18 05:00 - Exam Exam: Examination: General Examination: *CONSTITUTIONAL: Alert and oriented x3, no acute distress, *GENERAL APPEARANCE OF PATIENT appears healthy and well groomed *EYES: pupils equal, round, reactive to light and accommodation, conjunctiva clear *CARDIOVASCULARno peripheral edema, distal temperature normal, dorsalis pedis pulses normal. See vital signs Musculoskeletal: *GAIT AND STATION and gait exam deferred *ASSESSMENT OF MUSCLE STRENGTH IN THE UPPER AND LOWER EXTREMITIES bilateral deltoid, bicep, tricep, belt notcher strength 5/5, rt hip flexors ,anterior tibialis, dorsoflexion of the foot 3/5, left hip flexor, anterior tibialis and dorsiflexion of the left foot are 5/5. Limitation to ROM of right leg; mostly d/t pain *MUSCLE TONE IN THE UPPER AND LOWER EXTREMITIES normal. No abnormal movements, fasciculations or atrophy identified. Neurological: *ORIENTATION to person, situation, time and place *RECURRENT AND REMOTE MEMORY intact *ATTENTION AND CONCENTRATION are normal *LANGUAGE FUNCTION no significant aphasia or dysarthia was noted. *FUND OF KNOWLEDGE aware of current events, past history, vocabulary *MENTAL attention span and concentration normal. *CN II optic fundi were normal, no papilledema noted. *CN III,IV, PERRLA extraocular eye movements were full, no nystagmus and no ptosis noted. *CN V shows normal sensation and jaw opens symmetrically. *CN VII shows normal facial movement symmetrically, upper and lower bilaterally. *CN VIII shows no significant hearing loss on exam *CN IX,,X palate elevated symmetrically *CN XI normal strength in the sternocleidomastoid muscles, symmetrical shoulder shrugging. *CN XII tongue protruded in the midline, with normal strength and movement. *SENSORY EXAMINATION light touch intact *REFLEXES: deep tendon reflexes were normal and symmetrical , grade 1/4 diffusely, no pathological reflexes were noted. *CEREBELLAR TESTING normal finger to nose, heel/knee/hussein *PAIN LEVEL 4/10; most notably to right hip, worse with range of motio n Results - Laboratory Findings CBC and BMP: 11/06/18 05:54 11/06/18 05:54 Abnormal lab findings: Abnormal lab results WBC 4.1 K/mcL (4.3-11.1) L 11/03/18 08:12 RBC 3.64 M/mcL (3.82-4.97) L 11/05/18 04:12 Hgb 10.0 g/dL (11.5-15.4) L 11/06/18 05:54 Hct 32.8 % (35.3-44.9) L 11/06/18 05:54 MCH 25.5 pg (28.0-33.3) L 11/06/18 05:54 MCHC 30.5 g/dL (31.6-35.5) L 11/06/18 05:54 RDW 19.1 % (11.5-14.5) H 11/06/18 05:54 Plt Count 459 K/mcL (140-400) H 11/04/18 06:47 MPV 8.3 fL (9.4-12.4) L 11/06/18 05:54 ESR >= 130 mm/hr (0-15) H 11/03/18 08:12 PT 12.7 Seconds (9.4-12.1) H 11/03/18 08:12 Glucose 156 mg/dL (70-105) H 11/06/18 05:54 POC Glucose 120 mg/dL (70-99) H 11/05/18 21:09 7.5 % (-5.6) H 11/03/18 08:12 0.2 mg/dL (0.3-1.0) L 11/03/18 08:12 AST 11 Units/L (13-39) L 11/03/18 08:12 128 Units/L (34-104) H 11/03/18 08:12 76 mg/L (Less than 10) H 11/03/18 08:12 4.6 g/dL (2.4-3.5) H 11/03/18 08:12 0.9 (1.1-2.2) L 11/03/18 08:12 Fluid Appearance Cloudy (Clear) A 11/04/18 12:32 Vancomycin Trough 14 mcg/mL (5-10) H 11/05/18 20:00 Consult Discharge Plan - Plan Referrals: Walter Merino MD [Primary Care Provider] - <Yovani Lopez I - Last Filed: 11/07/18 12:09> Date of Encounter: 11/06/18 Assessment and Plan (1) Right leg weakness Current Visit: Yes Status: Acute I have personally performed a face to face diagnostic evaluation, including HPI, EXAM, which is included in the Assesment and plan, which was discussed with Garfield Perla CNP, I agree with the above outlined documentation. We will be getting MRI of the lumbar spine considering that she has felt a pop in her back recently and has gotten worse since then likely lumbar radicular but the same time need to exclude structural abnormalities in the iliopsoas area as well Yovani Lopez MD. NeurologyI History of Present Illness HPI: Ms. Green is a 48 year old female All Systems: The remainder of the systems were reviewed and are negative Physical Examination - Vital Signs Vital Signs: Initial Vital Signs Temp Pulse Resp BP Pulse Ox 98.8 F 108 16 129/96 96 11/03/18 05:00 11/03/18 05:00 11/03/18 05:00 11/03/18 05:00 11/03/18 05:00 Results - Laboratory Findings CBC and BMP: 11/07/18 03:51 11/07/18 03:51 Abnormal lab findings: Abnormal lab results WBC 4.1 K/mcL (4.3-11.1) L 11/03/18 08:12 RBC 3.51 M/mcL (3.82-4.97) L 11/07/18 03:51 Hgb 9.1 g/dL (11.5-15.4) L 11/07/18 03:51 Hct 28.8 % (35.3-44.9) L 11/07/18 03:51 MCV 82.1 fL (83.0-100.0) L 11/07/18 03:51 MCH 25.9 pg (28.0-33.3) L 11/07/18 03:51 MCHC 30.5 g/dL (31.6-35.5) L 11/06/18 05:54 RDW 19.1 % (11.5-14.5) H 11/07/18 03:51 Plt Count 459 K/mcL (140-400) H 11/04/18 06:47 MPV 8.2 fL (9.4-12.4) L 11/07/18 03:51 ESR 124 mm/hr (0-15) H 11/07/18 03:51 PT 12.7 Seconds (9.4-12.1) H 11/03/18 08:12 Glucose 171 mg/dL (70-105) H 11/07/18 03:51 POC Glucose 139 mg/dL (70-99) H 11/07/18 07:15 7.5 % (-5.6) H 11/03/18 08:12 0.2 mg/dL (0.3-1.0) L 11/03/18 08:12 AST 11 Units/L (13-39) L 11/03/18 08:12 128 Units/L (34-104) H 11/03/18 08:12 76 mg/L (Less than 10) H 11/03/18 08:12 4.6 g/dL (2.4-3.5) H 11/03/18 08:12 0.9 (1.1-2.2) L 11/03/18 08:12 Fluid Appearance Cloudy (Clear) A 11/04/18 12:32 Vancomycin Trough 14 mcg/mL (5-10) H 11/05/18 20:00
[2018-11-07 04:02] LABS: Basophils % 0.8 %; Eosinophils # 0.2 K/mcL (0.0-0.6); Eosinophils % 4.2 %; Hematocrit 28.8 % (35.3-44.9); Hemoglobin 9.1 g/dL (11.5-15.4); Immature Granulocytes % 0.4 % (0-4); Lymphocytes # 1.3 K/mcL (0.6-4.6); Lymphocytes % 26.5 %; Mean Corpuscular HGB Conc 31.6 g/dL (31.6-35.5); Mean Corpuscular Hemoglobin 25.9 pg (28.0-33.3); Mean Corpuscular Volume 82.1 fL (83.0-100.0); Mean Platelet Volume 8.2 fL (9.4-12.4); Monocytes # 0.5 K/mcL (0.0-1.3); Monocytes % 10.4 %; Neutrophils # 2.8 K/mcL (1.6-8.9); Platelet Count 337 K/mcL (140-400); Red Blood Count 3.51 M/mcL (3.82-4.97); Red Cell Distribution Width 19.1 % (11.5-14.5); Segmented Neutrophils % 57.7 %
[2018-11-07 04:25] LABS: BUN/Creatinine Ratio 14 (6-26); Blood Urea Nitrogen 10 mg/dL (6-20); Calcium 8.9 mg/dL (8.6-10.3); Carbon Dioxide 25 mEq/L (23-29); Chloride 103 mEq/L (98-107); Glucose 171 mg/dL (70-105); Magnesium 1.9 mg/dL (1.6-2.6); Osmolality,Calculated 287 (280-300); Potassium 3.5 mEq/L (3.5-5.1); Sodium 137 mEq/L (136-145); eGFR For Non-African Americans > 60 (> 60)
[2018-11-07] MEDS: *HR* Heparin 5,000 UNIT/ML VIAL SQ SCH ×2 (05:26→16:47)
[2018-11-07] MEDS: rifAMPin 150 MG CAPSULE PO SCH ×3 (08:28→22:18)
[2018-11-07] MEDS: Aspirin Enteric Coated 81 MG Tablet PO SCH (08:28)
[2018-11-07] MEDS: Gabapentin 300 MG CAPSULE PO SCH ×3 (08:28→22:18)
[2018-11-07] MEDS: Insulin LISPRO 300 UNITS/3 ML VIAL SQ SCH ×3 (08:29→16:42)
[2018-11-07] MEDS: OXYCODONE Oral CONC 10 MG/0.5 ML ORAL.SYG SL PRN ×3 (11:01→23:10)
--- NOTE | 2018-11-07 11:11 | Orthopedics Progress Note ---
Date of Encounter: 11/07/18 Time of Encounter: 11:10 Subjective Interval history: Patient reports no new issues. Drain pulled out last night. Dressing covering wound without significant saturation. No surrounding erythema. Still waiting cultures for the right hip. Otherwise continue current management. Objective Vital signs: Vital Signs Temp Pulse Resp BP Pulse Ox 11/07/18 10:52 98.3 F 105 16 117/65 94 11/07/18 04:37 98.7 F 97 15 120/79 94 11/06/18 23:12 98.5 F 107 15 135/83 94 11/06/18 19:36 99.1 F 104 15 142/85 97 11/06/18 14:19 98.7 F 98 16 111/74 96 Intake and Output 11/06/18 11/07/18 11/07/18 23:59 07:59 15:59 Intake Total 740 / 1600 500 / 860 360 / 860 Output Total 0 / 1015 700 / 700 0 / 700 Balance 740 / 585 -200 / 160 360 / 160 Intake: IV Fluids 500 / 1000 500 / 500 Vancocin 2,000 MG In 0.9 % 500 / 1000 500 / 500 Sodium Chloride 500 ML @ 250 mls/hr IVPB Q12H [facility] Rx#: [id number] Oral 240 / 600 0 / 360 360 / 360 Output: Urine 0 / 1000 700 / 700 0 / 700 Wound Drainage 0 / 15 0 / 0 Right Hip 0 / 15 0 / 0 Other: Meal Dinner Breakfast Percent of Meal Consumed 50% 100% # Voids 1 2 # Bowel Movements 1 0 0 Weight 132.6 kg Blood Glucose* 123 139 Patient Weight 11/07/18 23:59 Weight 132.6 kg - Labs CBC & BMP: 11/07/18 03:51 11/07/18 03:51 Labs: Abnormal lab results WBC 4.1 K/mcL (4.3-11.1) L 11/03/18 08:12 RBC 3.51 M/mcL (3.82-4.97) L 11/07/18 03:51 Hgb 9.1 g/dL (11.5-15.4) L 11/07/18 03:51 Hct 28.8 % (35.3-44.9) L 11/07/18 03:51 MCV 82.1 fL (83.0-100.0) L 11/07/18 03:51 MCH 25.9 pg (28.0-33.3) L 11/07/18 03:51 MCHC 30.5 g/dL (31.6-35.5) L 11/06/18 05:54 RDW 19.1 % (11.5-14.5) H 11/07/18 03:51 Plt Count 459 K/mcL (140-400) H 11/04/18 06:47 MPV 8.2 fL (9.4-12.4) L 11/07/18 03:51 ESR 124 mm/hr (0-15) H 11/07/18 03:51 PT 12.7 Seconds (9.4-12.1) H 11/03/18 08:12 Glucose 171 mg/dL (70-105) H 11/07/18 03:51 POC Glucose 139 mg/dL (70-99) H 11/07/18 07:15 7.5 % (-5.6) H 11/03/18 08:12 0.2 mg/dL (0.3-1.0) L 11/03/18 08:12 AST 11 Units/L (13-39) L 11/03/18 08:12 128 Units/L (34-104) H 11/03/18 08:12 76 mg/L (Less than 10) H 11/03/18 08:12 4.6 g/dL (2.4-3.5) H 11/03/18 08:12 0.9 (1.1-2.2) L 11/03/18 08:12 Fluid Appearance Cloudy (Clear) A 11/04/18 12:32 Vancomycin Trough 14 mcg/mL (5-10) H 11/05/18 20:00 Consult Discharge Plan - Plan Referrals: Walter Merino MD [Primary Care Provider] -
[2018-11-07] MEDS ORDERED: Isovue-370 500 ML BOTTLE IVP ONE (12:14)
--- NOTE | 2018-11-07 12:14 | Neurology Progress Note ---
Date of Encounter: 11/07/18 Time of Encounter: 11:09 Assessment and Plan (1) Right leg weakness Current Visit: Yes Status: Acute This patient who continued to have significant pain and weakness in the right lower extremity with hip issues that seems to be stable also had an MRI of the lumbar spine that did shows degenerative changes but did not explain the extent of the weakness and pain that she is been experiencing in the right lower extremity, and did not explain her symptoms. As she already had imaging studies of her hip and lower extremities other possibility is to look for any structural abnormalities especially any iliopsoas hematoma that may be causing this pain and limitation of the movement in the right lower extremity. In the meantime continue on other treatment as per orthopedics continue PT if she is able to tolerated. We will try to get MRI or CT scan of the pelvis area Subjective Interval history: Patient seen as follow-up she continued to have weakness of the right lower extremity with significant pain MRI of the lumbar spine did not show any critical stenosis to explain her symptoms though there is multilevel degenerative changes but again no critical stenosis reported Objective - Constitutional Vitals: Temp Pulse Resp BP Pulse Ox 98.3 F 105 16 117/65 94 11/07/18 10:52 11/07/18 10:52 11/07/18 10:52 11/07/18 10:52 11/07/18 10:52 - Neurological Exam Sensorimotor examination: Present: intact Motor examination - right side: 3/5: hip flexors, tibialis Anterior, quadriceps, toe extension (EHL), plantarflexion, 5/5: deltoids, biceps, triceps, wrist flexion, wrist extension, hydraulic chair assembler Motor examination - left side: 4/5: quadriceps, tibialis Anterior, toe extension (EHL), plantarflexion, 5/5: deltoids, biceps, triceps, wrist flexion, wrist extension, hip flexors, hydraulic chair assembler Sensation intact: Present: intact Reflexes: Biceps: 1+, Triceps: 1+, Brachioradialis: 1+, Patella: 1+, Achilles: 1+ Mental Status Examination: Present: awake, alert, oriented to person, oriented to place, oriented to time, follows commands appropriately, answers questions appropriately Cranial nerve examination: Present: PERRL, EOMI, visual stallings intact, no facial asymmetry is present Cerebellar examination: Present: no dysmetria, no truncal ataxia Results - Laboratory Findings CBC and BMP: 11/07/18 03:51 11/07/18 03:51 Abnormal lab findings: Abnormal lab results WBC 4.1 K/mcL (4.3-11.1) L 11/03/18 08:12 RBC 3.51 M/mcL (3.82-4.97) L 11/07/18 03:51 Hgb 9.1 g/dL (11.5-15.4) L 11/07/18 03:51 Hct 28.8 % (35.3-44.9) L 11/07/18 03:51 MCV 82.1 fL (83.0-100.0) L 11/07/18 03:51 MCH 25.9 pg (28.0-33.3) L 11/07/18 03:51 MCHC 30.5 g/dL (31.6-35.5) L 11/06/18 05:54 RDW 19.1 % (11.5-14.5) H 11/07/18 03:51 Plt Count 459 K/mcL (140-400) H 11/04/18 06:47 MPV 8.2 fL (9.4-12.4) L 11/07/18 03:51 ESR 124 mm/hr (0-15) H 11/07/18 03:51 PT 12.7 Seconds (9.4-12.1) H 11/03/18 08:12 Glucose 171 mg/dL (70-105) H 11/07/18 03:51 POC Glucose 175 mg/dL (70-99) H 11/07/18 11:36 7.5 % (-5.6) H 11/03/18 08:12 0.2 mg/dL (0.3-1.0) L 11/03/18 08:12 AST 11 Units/L (13-39) L 11/03/18 08:12 128 Units/L (34-104) H 11/03/18 08:12 76 mg/L (Less than 10) H 11/03/18 08:12 4.6 g/dL (2.4-3.5) H 11/03/18 08:12 0.9 (1.1-2.2) L 11/03/18 08:12 Fluid Appearance Cloudy (Clear) A 11/04/18 12:32 Vancomycin Trough 14 mcg/mL (5-10) H 11/05/18 20:00 - Diagnostic Findings Additional findings: MRI of the lumbar spine showed Multilevel degenerative disc disease as described above, exacerbating congenitally narrow lumbar spinal canal. Spinal canal narrowing, mild at L3-4. Foraminal narrowing, moderate at left L5-S1, mild at right L5-S1, minimal at left L4-5. Consult Discharge Plan - Plan Referrals: Walter Merino MD [Primary Care Provider] -
--- NOTE | 2018-11-07 14:59 | Internal Med Progress Note ---
Hospitalist Progress Note - Encounter Date of Encounter: 11/07/18 Time of Encounter: 16:20 - Subjective Interval History: right hip pain no chest pain, dyspnea, dizziness, abd pain, n, v, diarrhea, constipation - Exam Vitals: Temp Pulse Resp BP Pulse Ox 99.0 F 106 16 105/61 95 11/07/18 14:27 11/07/18 14:27 11/07/18 14:27 11/07/18 14:27 11/07/18 14:27 Exam: Gen.: Alert and oriented 3, appears anxious no scleral icterus Lungs: Clear to auscultation bilaterally, no rales, rhonchi, wheezes Musculoskeletal: Right hip Mildly tender to palpation. Neuro: Right lower extremity range of motion limited by pain. no dysarhtria or gross motor deficits - Assessment and Plan (1) DVT prophylaxis Current Visit: No Status: Acute (2) HTN (hypertension) Current Visit: No Status: Chronic (3) Diabetes mellitus Current Visit: Yes Status: Chronic (4) Joint prosthesis complication Current Visit: Yes Status: Acute (5) Right hip pain Current Visit: Yes Status: Acute (6) Right leg weakness Current Visit: Yes Status: Acute - Summary of Assessment and Plan Summary of Assessment and Plan: Per H&P: """"Ms. Green is a 48 year old female with pmh of s/p bilateral hip replacement surgerues, diabetes, hypothyroidism presenting with complaints of right prosthetic hip fracture last night. Patient has a prosthetic right hip and has been on antibiotics with vancomycin, levaquin and rifampir since mid september for an infected hip joint. Blood cultures were positive for MRSA. She is also s/p surgical irrigation and debridement of draining right hip on 10/07. She says she went to the potty last night and as she attempted to get up from the potty, she heard a crack and began to experience pain in the right hip. She denies any fevers or chills or any other acute symptoms. She has been unable to bear weight on her right lower extremity since the fracture. In the ER, a hip xray was done showing a periprosthetic fracture. Orthopedic surgery has been consulted and she is being admitted for further management"""" (1) Right leg weakness - due to pain in right hip. - Neurology appreciated: CT or MRI to look for iliopsoas hematoma that may be causing this pain and limitation of the movement in the right lower extremity. - CT pelvis: Redemonstration of abscess in the gluteal region lateral to the right hip. Overall, no significant change. Stable infiltration of the subcutaneous fat. - Cont management per orthopedics (2) Infection of right prosthetic hip joint - Status post CT-guided aspiration of right hip fluid collection preliminary fluid analysis shows high total nucleated cell count with 82% segmented neutrophils. Culture pending but no growth to date. Continue vancomycin and rifampin per ID recommendations and await final culture results. Further surgical intervention recommendations per orthopedic surgery. (3) Right femoral fracture Periprosthetic fracture which per orthopedic note was present previously. Further management per orthopedics. (4) Diabetes mellitus Blood sugars under good control. Continue sliding scale insulin coverage (5) Morbid obesity with BMI of 45.0-49.9, adult Encourage weight loss (6) Hypothyroidism Continue levothyroxine (7) DVT prophylaxis heparin sc Lab drw holiday tomorrow - Time Spent with Patient Total time spent is greater than 50% in coordination of care (as documented) at patient's floor/unit and/or counseling patient: Internal Medicine: Result - Labs CBC & Chem 7: 11/07/18 03:51 11/07/18 03:51 Labs: Short CBC 11/07/18 Range/Units 03:51 WBC 4.8 (4.3-11.1) K/mcL Hgb 9.1 L (11.5-15.4) g/dL Hct 28.8 L (35.3-44.9) % Plt Count 337 (140-400) K/mcL Neutrophils # 2.8 (1.6-8.9) K/mcL BMP 11/07/18 03:51 Sodium 137 Potassium 3.5 Chloride 103 Carbon Dioxide 25 BUN 10 Creatinine 0.72 Glucose 171 H Calcium 8.9 - ABG Interpretation ABG results: PT/INR, D-dimer PT 12.7 Seconds (9.4-12.1) H 11/03/18 08:12 - Impressions Impressions Lumbar Spine MRI 11/06/18 12:42 IMPRESSION: Multilevel degenerative disc disease as described above, exacerbating congenitally narrow lumbar spinal canal. Spinal canal narrowing, mild at L3-4. Foraminal narrowing, moderate at left L5-S1, mild at right L5-S1, minimal at left L4-5. D/ / Kevin Miller MD / Kevin Miller MD Interpreting Provider: Kevin Miller MD Consult Discharge Plan - Plan Referrals: Walter Merino MD [Primary Care Provider] - (2) HTN (hypertension) Qualifiers: Hypertension type: essential hypertension Qualified Code(s): I10 - Essential (primary) hypertension (3) Diabetes mellitus Qualifiers: Diabetes mellitus type: type 2 Diabetes mellitus ferry terminal agent insulin use: without fpc use Diabetes mellitus complication status: with hyperglycemia Qualified Code(s): E11.65 - Type 2 diabetes mellitus with hyperglycemia (4) Joint prosthesis complication Qualifiers: Qualified Code(s): T84.9XXA - Unspecified complication of internal orthopedic prosthetic device, implant and graft, initial encounter
[2018-11-08] MEDS: *HR* Heparin 5,000 UNIT/ML VIAL SQ SCH ×2 (05:56→16:36)
[2018-11-08] MEDS: rifAMPin 150 MG CAPSULE PO SCH ×3 (09:12→20:34)
[2018-11-08] MEDS: Aspirin Enteric Coated 81 MG Tablet PO SCH (09:12)
[2018-11-08] MEDS: Insulin LISPRO 300 UNITS/3 ML VIAL SQ SCH ×3 (09:13→16:37)
[2018-11-08] MEDS: Gabapentin 300 MG CAPSULE PO SCH ×3 (09:13→20:34)
--- NOTE | 2018-11-08 12:36 | Neurology Progress Note ---
Date of Encounter: 11/08/18 Time of Encounter: 12:33 Assessment and Plan (1) Abscess, gluteal, right Current Visit: Yes Status: Acute CT of the pelvis did shows abscess in the right gluteal area, measuring 5.5 x 5.1 cm. with Infiltration of the overlying subcutaneous fat , Considering significant pain and limitation of the movement I believe it is the main contributing factors along with her other mechanical issues At the same time she also has significant degenerative changes on lumbar spine but no critical typical stenosis noted. At this time suggest conservative treatment with physical therapy pain management to see if there is an improvement at the same time we will discuss it with the orthopedics if there is a need of any surgical intervention as clinically she seemed to be doing better I think we may continue to monitor her and if there is worsening of the pain or any other symptoms in that case she may need some surgical intervention. (2) Right leg weakness Current Visit: Yes Status: Acute Subjective Interval history: Patient seen as follow-up she continued to have weakness of the right lower extremity , but improvement in the movement as compared to yesterday , MRI of the lumbar spine did not show any critical stenosis to explain her symptoms though there is multilevel degenerative changes but again no critical stenosis reported. CT of the pelvis did show abscess in the right gluteal area , that slightly the reason for her weakness on the top of her other mechanical issues and can cause pain as well Objective - Constitutional Vitals: Temp Pulse Resp BP Pulse Ox 97.9 F 85 16 123/80 97 11/08/18 11:13 11/08/18 11:13 11/08/18 11:13 11/08/18 11:13 11/08/18 11:13 - Neurological Exam Sensorimotor examination: Present: intact Motor examination - right side: 3/5: hip flexors, tibialis Anterior, 4/5: quadriceps, toe extension (EHL), plantarflexion, 5/5: deltoids, biceps, triceps, wrist flexion, wrist extension, delivery person Motor examination - left side: 4/5: quadriceps, tibialis Anterior, toe extension (EHL), plantarflexion, 5/5: deltoids, biceps, triceps, wrist flexion, wrist extension, hip flexors, delivery person Sensation intact: Present: intact Mental Status Examination: Present: awake, alert, oriented to person, oriented to place, oriented to time, follows commands appropriately, answers questions appropriately Cranial nerve examination: Present: PERRL, EOMI, visual stallings intact, no facial asymmetry is present Cerebellar examination: Present: no dysmetria, no truncal ataxia Results - Laboratory Findings CBC and BMP: 11/07/18 03:51 11/07/18 03:51 Abnormal lab findings: Abnormal lab results WBC 4.1 K/mcL (4.3-11.1) L 11/03/18 08:12 RBC 3.51 M/mcL (3.82-4.97) L 11/07/18 03:51 Hgb 9.1 g/dL (11.5-15.4) L 11/07/18 03:51 Hct 28.8 % (35.3-44.9) L 11/07/18 03:51 MCV 82.1 fL (83.0-100.0) L 11/07/18 03:51 MCH 25.9 pg (28.0-33.3) L 11/07/18 03:51 MCHC 30.5 g/dL (31.6-35.5) L 11/06/18 05:54 RDW 19.1 % (11.5-14.5) H 11/07/18 03:51 Plt Count 459 K/mcL (140-400) H 11/04/18 06:47 MPV 8.2 fL (9.4-12.4) L 11/07/18 03:51 ESR 124 mm/hr (0-15) H 11/07/18 03:51 PT 12.7 Seconds (9.4-12.1) H 11/03/18 08:12 Glucose 171 mg/dL (70-105) H 11/07/18 03:51 POC Glucose 137 mg/dL (70-99) H 11/08/18 11:16 7.5 % (-5.6) H 11/03/18 08:12 0.2 mg/dL (0.3-1.0) L 11/03/18 08:12 AST 11 Units/L (13-39) L 11/03/18 08:12 128 Units/L (34-104) H 11/03/18 08:12 76 mg/L (Less than 10) H 11/03/18 08:12 4.6 g/dL (2.4-3.5) H 11/03/18 08:12 0.9 (1.1-2.2) L 11/03/18 08:12 Fluid Appearance Cloudy (Clear) A 11/04/18 12:32 Vancomycin Trough 14 mcg/mL (5-10) H 11/07/18 20:00 - Diagnostic Findings Additional findings: CT of the pelvis shows Redemonstration of abscess in the gluteal region lateral to the right hip. Overall, no significant change. Stable infiltration of the subcutaneous fat. Inguinal adenopathy, likely reactive and stable compared to the recent CT. 2. Otherwise unremarkable CT of the pelvis. Previous hysterectomy. Colonic diverticulosis with no acute features. Consult Discharge Plan - Plan Referrals: Walter Merino MD [Primary Care Provider] -
--- NOTE | 2018-11-08 12:55 | Internal Med Progress Note ---
Hospitalist Progress Note - Encounter Date of Encounter: 11/08/18 Time of Encounter: 12:55 - Subjective Interval History: right hip pain but feels that the range of motion has slightly improved no chest pain, dyspnea, dizziness, abd pain, n, v, constipation one episode of loose stools this morning rash in groin area - Exam Vitals: Temp Pulse Resp BP Pulse Ox 97.9 F 85 16 123/80 97 11/08/18 11:13 11/08/18 11:13 11/08/18 11:13 11/08/18 11:13 11/08/18 11:13 Exam: Gen.: Alert and oriented 3, appears anxious no scleral icterus Lungs: Clear to auscultation bilaterally, no rales, rhonchi, wheezes S1, S2, no MRG soft, NT, ND, no guarding or rebound Musculoskeletal: Right hip Mildly tender to palpation. groin examined with Christa PEREA as witness, inner thigh erythema Neuro: Right lower extremity range of motion limited by pain. no dysarhtria or gross motor deficits - Assessment and Plan (1) DVT prophylaxis Current Visit: No Status: Acute (2) HTN (hypertension) Current Visit: No Status: Chronic (3) Diabetes mellitus Current Visit: Yes Status: Chronic (4) Joint prosthesis complication Current Visit: Yes Status: Acute (5) Right hip pain Current Visit: Yes Status: Acute (6) Right leg weakness Current Visit: Yes Status: Acute - Summary of Assessment and Plan Summary of Assessment and Plan: Per H&P: """"Ms. Green is a 48 year old female with pmh of s/p bilateral hip replacement surgerues, diabetes, hypothyroidism presenting with complaints of right prosthetic hip fracture last night. Patient has a prosthetic right hip and has been on antibiotics with vancomycin, levaquin and rifampir since mid september for an infected hip joint. Blood cultures were positive for MRSA. She is also s/p surgical irrigation and debridement of draining right hip on 10/07. She says she went to the potty last night and as she attempted to get up from the potty, she heard a crack and began to experience pain in the right hip. She denies any fevers or chills or any other acute symptoms. She has been unable to bear weight on her right lower extremity since the fracture. In the ER, a hip xray was done showing a periprosthetic fracture. Orthopedic surgery has been consulted and she is being admitted for further management"""" (1) Right leg weakness due to pain in right hip (2) Abscess, gluteal, right (3) Infection of right prosthetic hip joint - Status post CT-guided aspiration of right hip fluid collection preliminary fluid analysis shows high total nucleated cell count with 82% segmented neutrophils. Culture pending but no growth to date. Further surgical int ervention recommendations per orthopedic surgery. - Neurology appreciated: PT. If doesn't improve, may need surgical management - ID appreciated: Continue vancomycin and rifampin (4) Right femoral fracture Periprosthetic fracture which per orthopedic note was present previously. Further management per orthopedics. (5) Diabetes mellitus Blood sugars under reasonable control. Continue sliding scale insulin coverage (6) Morbid obesity with BMI of 45.0-49.9, adult Encourage weight loss (7) Hypothyroidism Continue levothyroxine (8) DVT prophylaxis heparin sc - Time Spent with Patient Total time spent is greater than 50% in coordination of care (as documented) at patient's floor/unit and/or counseling patient: Internal Medicine: Result - Labs CBC & Chem 7: 11/07/18 03:51 11/07/18 03:51 - ABG Interpretation ABG results: PT/INR, D-dimer PT 12.7 Seconds (9.4-12.1) H 11/03/18 08:12 - Impressions Impressions Pelvis CT 11/07/18 12:14 IMPRESSION: 1. Redemonstration of abscess in the gluteal region lateral to the right hip. Overall, no significant change. Stable infiltration of the subcutaneous fat. Inguinal adenopathy, likely reactive and stable compared to the recent CT. 2. Otherwise unremarkable CT of the pelvis. Previous hysterectomy. Colonic diverticulosis with no acute features. D/ / 11/07/2018 15:45:44 Claudio Bose MD / Lee Ann Grullon Interpreting Provider: Claudio Bose MD Consult Discharge Plan - Plan Referrals: Walter Merino MD [Primary Care Provider] - (2) HTN (hypertension) Qualifiers: Hypertension type: essential hypertension Qualified Code(s): I10 - Essential (primary) hypertension (3) Diabetes mellitus Qualifiers: Diabetes mellitus type: type 2 Diabetes mellitus usp insulin use: without civil defense director use Diabetes mellitus complication status: with hyperglycemia Qualified Code(s): E11.65 - Type 2 diabetes mellitus with hyperglycemia (4) Joint prosthesis complication Qualifiers: Qualified Code(s): T84.9XXA - Unspecified complication of internal orthopedic prosthetic device, implant and graft, initial encounter
[2018-11-08] MEDS: Nystatin Cream 15 GM TUBE TP SCH ×2 (16:37→20:38)
[2018-11-08] MEDS: OXYCODONE Oral CONC 10 MG/0.5 ML ORAL.SYG SL PRN (20:35)
[2018-11-09] MEDS: OXYCODONE Oral CONC 10 MG/0.5 ML ORAL.SYG SL PRN ×3 (05:36→18:21)
[2018-11-09] MEDS: *HR* Heparin 5,000 UNIT/ML VIAL SQ SCH ×2 (05:36→18:22)
[2018-11-09 06:19] LABS: Hematocrit 29.5 % (35.3-44.9); Mean Corpuscular HGB Conc 30.5 g/dL (31.6-35.5); Mean Corpuscular Hemoglobin 25.8 pg (28.0-33.3); Mean Corpuscular Volume 84.5 fL (83.0-100.0); Mean Platelet Volume 8.4 fL (9.4-12.4); Platelet Count 311 K/mcL (140-400); Red Blood Count 3.49 M/mcL (3.82-4.97); Red Cell Distribution Width 19.9 % (11.5-14.5)
[2018-11-09 06:31] LABS: BUN/Creatinine Ratio 10 (6-26); Blood Urea Nitrogen 7 mg/dL (6-20); Calcium 8.9 mg/dL (8.6-10.3); Carbon Dioxide 26 mEq/L (23-29); Chloride 105 mEq/L (98-107); Glucose 143 mg/dL (70-105); Osmolality,Calculated 286 (280-300); Potassium 3.7 mEq/L (3.5-5.1); Sodium 138 mEq/L (136-145); eGFR For Non-African Americans > 60 (> 60)
[2018-11-09] MEDS: Insulin LISPRO 300 UNITS/3 ML VIAL SQ SCH ×3 (08:23→16:40)
--- NOTE | 2018-11-09 08:23 | Orthopedics Progress Note ---
Date of Encounter: 11/09/18 Time of Encounter: 08:23 - Assessment and Plan (1) Infection of right prosthetic hip joint Current Visit: Yes Status: Chronic 11/09: Discussed that since she has been on IV abx we need to await culture results to verify no new bacteria or antibiotic resistance. Patient verbalized understanding however states she is looking forward to going home as she has been here nearly a week. Patient seen by Neurology for eval of sudden onset right leg weakness - awaiting MRI lumbar spine - at this time they concur that fluid collection may have been contributing to her sudden onset weakness and pain. Patient noted to be rapidly improving and thus far culture results are negative. Communicated with Gauri with ID - awaiting their reevaluation today Communicated with radiology to speak with radiologist re: comparison CT to con firm no acute changing appearance. Dr. Mchugh aware of the above and verbalizes agreement to plan Patient to follow up outpatient within 7 days of discharge with orthopedics. Patient verbalizes understanding. History: Ms. Green is a 48 year old female well known to [facility]. Patient presented to ED for evaluation after sitting onto commode last night and per patient felt a "pop" to the hip region and subsequently developed significant right hip/groin pain with significant pain with weight bearing. Patient states that she is sure something is wrong with her hip as she states it feels similar to when she fell causing a periprosthetic fracture in 06/2018. She admits to most significantly groin pain with radiation to the right labia. She admits to significant pain in the anterior hip and groin with weightbearing. Denies pain in buttocks or posterior incision. Denies drainage from incision. Denies headache, chest pain, shortness of breath, or new numbness/tingling. Patient has a complex history with recent admission and surgery in mid-September 2018 after she presented to outpatient [facility] office on 10/05 with complaints of right hip pain. Upon obtaining xray films, mariely pus and fluid drainage began expressing from right hip incision at pinhole site per record. Patient was direct admitted to hospitalist team 10/05 with plan for orthopedic intervention. Patient left AMA on 10/06 for concerns regarding her home status, however, patient was in contact with [facility] office and returned for surgical irrigation and debridement of draining right hip on 10/07. Intraop findings demonstrated 4 cm dehiscence of the fascia with no mariely purulence noted. Extensive debridement performed by Dr. Mchugh with avoidance of dislocation of the hip based on the patient's complicated history of a fall in the postop window sustaining a periprosthetic femur fracture requiring right hip revision with femur orif on 07/16/18 following her initial hip replacement performed on 06/17/18. Patient also found to have MRSA bacteremia from blood cultures performed on initial admission 10/05/18. Intraoperative cultures resulted to finding of MRSA Hospitalist team was then consulted for assistance with medical management. Infectious disease was consulted and patient had PICC placement following negative repeat blood cultures and negative findings on KELLY/TTE Patient discharged home with home health services with antibiotic orders of PO Levaquin, PO Rifampin, IV Vancomycin (Goal trough 15) on 10/12/18 and has been on Vanc and Rifampin since and denies missing any doses. Qualifiers: Encounter type: subsequent encounter Qualified Code(s): T84.51XD - Infection and inflammatory reaction due to internal right hip prosthesis, subsequent encounter (2) Right groin pain Current Visit: Yes Status: Acute (3) Right hip pain Current Visit: Yes Status: Acute (4) Status post revision of total hip Current Visit: No Status: Chronic (5) Status post total hip replacement, right Current Visit: No Status: Chronic Subjective Principal diagnosis: right hip pain Interval history: Patient had CT guided aspiration with RODNEY drain placement on 11/04 RODNEY Drain removed 11/06 Patient noted to have had MRI lumbar spine 11/06 --> revealing degenerative changes with no stenosis noted to explain her sudden onset of symptoms. MR/MR lumbar spine wo con IMPRESSION: Multilevel degenerative disc disease as described above, exacerbating congenitally narrow lumbar spinal canal. Spinal canal narrowing, mild at L3-4. Foraminal narrowing, moderate at left L5-S1, mild at right L5-S1, minimal at left L4-5. D/ / Kevin Miller MD / Kevin Miller MD Patient also had CT pelvis performed on 11/07 revealing ongoing fluid collection now measuring 5.5x5.1cm down from 4.6x8.6cm on 11/03: CT/CT pelvis w iv no oral IMPRESSION: 1. Redemonstration of abscess in the gluteal region lateral to the right hip. Overall, no significant change. Stable infiltration of the subcutaneous fat. Inguinal adenopathy, likely reactive and stable compared to the recent CT. 2. Otherwise unremarkable CT of the pelvis. Previous hysterectomy. Colonic diverticulosis with no acute features. D/ / 11/07/2018 15:45:44 Claudio Bose MD / Lee Ann daily Patient seen at bedside. Sitting in chair eating breakfast. A&Ox3. No acute distress. Incision c/d/i - healing well with no skin disruption noted at this time. Drain site dressed with gauze and tegaderm. No calf tenderness, erythema, or warmth. Patient able to independently and with relative ease rise from sitting to standing. Hip motion improved, strength improved as well. Neurovascularly intact b/l LE. Labwork, vitals, and medications reviewed. Pain control: Adequate - patient states she has not had to take as much pain medication over the past appx 24 hours as her pain has reduced significantly. All questions and concerns addressed. Educated on use of incentive spirometer, ambulation, and hydration. Patient educated on post-operative restrictions and care. Addressed: Drain was able to be removed by charge nurse on 3NE after reattempt per record. D/C plan: await culture results Discussed that since she has been on IV abx we need to await culture results to verify no new bacteria or antibiotic resistance. Patient verbalized understanding however states she is looking forward to going home as she has been here nearly a week. Patient seen by Neurology for eval of sudden onset right leg weakness - awaiting MRI lumbar spine - at this time they concur that fluid collection may have been contributing to her sudden onset weakness and pain. Patient noted to be rapidly improving and thus far culture results are negative. Communicated with Gauri with ID - awaiting their reevaluation today Communicated with radiology to speak with radiologist re: comparison CT to confirm no acute changing appearance. Dr. Mchugh aware of the above and verbalizes agreement to plan Patient to follow up outpatient within 7 days of discharge with orthopedics. Patient verbalizes understanding. Objective Vital signs: Vital Signs Temp Pulse Resp BP Pulse Ox 11/09/18 08:21 98.0 F 97 16 126/78 97 11/09/18 04:54 98.3 F 103 18 107/77 94 11/08/18 19:20 98.6 F 102 15 124/81 93 11/08/18 15:10 98.4 F 94 16 124/76 97 11/08/18 11:13 97.9 F 85 16 123/80 97 Intake and Output 11/08/18 11/09/18 11/09/18 23:59 07:59 15:59 Intake Total 740 / 1840 Output Total 800 / 800 Balance 740 / 815 -800 / -800 Intake: IV Fluids 500 / 1000 Vancocin 2,000 MG In 0.9 % 500 / 1000 Sodium Chloride 500 ML @ 250 mls/hr IVPB Q12H ETELVINA Rx#: [id number] Oral 240 / 840 Output: Urine 800 / 800 Other: Meal Dinner Percent of Meal Consumed 80% # Voids 2 # Bowel Movements 0 Blood Glucose* 110 147 - Labs CBC & BMP: 11/09/18 05:50 11/09/18 05:50 Labs: Abnormal lab results WBC 4.2 K/mcL (4.3-11.1) L 11/09/18 05:50 RBC 3.49 M/mcL (3.82-4.97) L 11/09/18 05:50 Hgb 9.0 g/dL (11.5-15.4) L 11/09/18 05:50 Hct 29.5 % (35.3-44.9) L 11/09/18 05:50 MCV 82.1 fL (83.0-100.0) L 11/07/18 03:51 MCH 25.8 pg (28.0-33.3) L 11/09/18 05:50 MCHC 30.5 g/dL (31.6-35.5) L 11/09/18 05:50 RDW 19.9 % (11.5-14.5) H 11/09/18 05:50 Plt Count 459 K/mcL (140-400) H 11/04/18 06:47 MPV 8.4 fL (9.4-12.4) L 11/09/18 05:50 ESR 124 mm/hr (0-15) H 11/07/18 03:51 PT 12.7 Seconds (9.4-12.1) H 11/03/18 08:12 Glucose 143 mg/dL (70-105) H 11/09/18 05:50 POC Glucose 110 mg/dL (70-99) H 11/08/18 16:22 7.5 % (-5.6) H 11/03/18 08:12 0.2 mg/dL (0.3-1.0) L 11/03/18 08:12 AST 11 Units/L (13-39) L 11/03/18 08:12 128 Units/L (34-104) H 11/03/18 08:12 76 mg/L (Less than 10) H 11/03/18 08:12 4.6 g/dL (2.4-3.5) H 11/03/18 08:12 0.9 (1.1-2.2) L 11/03/18 08:12 Fluid Appearance Cloudy (Clear) A 11/04/18 12:32 Vancomycin Trough 14 mcg/mL (5-10) H 11/07/18 20:00 Consult Discharge Plan - Plan Referrals: Walter Merino MD [Primary Care Provider] -
[2018-11-09] MEDS: Gabapentin 300 MG CAPSULE PO SCH ×3 (10:40→21:33)
[2018-11-09] MEDS: Aspirin Enteric Coated 81 MG Tablet PO SCH (10:40)
[2018-11-09] MEDS: rifAMPin 150 MG CAPSULE PO SCH ×3 (10:40→21:33)
[2018-11-09] MEDS: Nystatin Cream 15 GM TUBE TP SCH ×2 (10:41→21:35)
[2018-11-09] MEDS: Cholecalciferol (D-3) 1,000 UNIT TABLET PO SCH (12:15)
--- NOTE | 2018-11-09 13:19 | Infectious Disease Progress No ---
ID Progress Note Date of Encounter: 11/09/18 Time of Encounter: 13:15 - Subjective Subjective: Patient seen and examined. Clinically doing well. States the pain in her hip is better. The sensation and movement is better. Appreciate neurology input. Patient denies any chest pain or shortness of breath no abdominal pain no nausea no vomiting no diarrhea no urinary symptoms. Her pain improved. VS: afebrile labs: noted cultures no growth - Objective CBC & Chem 7: 11/09/18 05:50 11/09/18 05:50 - Exam Vitals: Temp Pulse Resp BP Pulse Ox 97.6 F 104 17 130/69 97 11/09/18 11:20 11/09/18 11:20 11/09/18 11:20 11/09/18 11:20 11/09/18 11:20 Exam: GENERAL: Comfortable. sitting up in bed HEENT: GARY, EOMI LUNGS: Good air sounds bilaterally, no wheezing or rhonchi CV: RRR, S1 S2 ABDOMEN: Soft, nontender, + bowel sounds NEURO: A&OX3; no focal deficit - Assessment and Plan (1) Infection of right prosthetic hip joint Status: Chronic Location: Right hip. Causative organism: MRSA Likely secondary to recent surgical procedure and nonhealing of the wound. No imaging of the hip was completed preop. Cultures obtained of the purulent drainage prior to surgery were positive for MRSA. Status post right hip irrigation and debridement 10/07/18. There was dehiscence noted in the fascia that went all the way down to the joint space, but no purulence was noted Intra-Op. Intra-Op cultures were positive for MRSA. Completed almost 4 weeks of Vanc and Rifampin. ESR remains elevated at >130, but CRP improved. CT of the right hip 11/03/18 shows a complex fluid collection 4.6 x 8.6 m highly concerning for abscess extending to communicate with the joint line. Interventional radiology consulted. Status post CT-guided aspiration and drain placement in the right hip fluid collection. TNC high with mostly neutrophils. Culture is no growth. Currently on vancomycin and rifampin. Qualifiers: Encounter type: subsequent encounter Qualified Code(s): T84.51XD - Infection and inflammatory reaction due to internal right hip prosthesis, subsequent encounter SNOMED Code(s): 405107168, 582287983 (2) Right femoral fracture Status: Ruled-out Ruled out. Right hip XR shows findings concerning for periprosthetic femur fracture. Orthopedics consulted. CT scan of the right hip negative for acute fracture. Qualifiers: Encounter type: initial encounter Femur location: unspecified portion of femur Fracture type: closed Fracture morphology: unspecified fracture morphology Qualified Code(s): S72.91XA - Unspecified fracture of right femur, initial encounter for closed fracture SNOMED Code(s): 47281355 (3) Status post revision of total hip Status: Chronic June 2018-right revision femoral component total hip, ORIF periprosthetic femur fracture. SNOMED Code(s): 386848979, 050424206, 436370956, 304384918 (4) Status post total hip replacement, right Status: Chronic Robotic total hip replacement 06/17/18. SNOMED Code(s): 054694025846, 454878482116 (5) TANISHA (obstructive sleep apnea) Status: Chronic SNOMED Code(s): 85392528 (6) COPD (chronic obstructive pulmonary disease) Status: Chronic Qualifiers: COPD type: unspecified COPD Qualified Code(s): J44.9 - Chronic obstructive pulmonary disease, unspecified SNOMED Code(s): 16499204 (7) Diabetes mellitus Status: Chronic Recommend aggressive glucose monitoring and control to promote wound healing and prevent reinfection. Management per the primary team. Qualifiers: Diabetes mellitus type: type 2 Diabetes mellitus termite helper insulin use: without termite helper use Diabetes mellitus complication status: with hyperglycem ia Qualified Code(s): E11.65 - Type 2 diabetes mellitus with hyperglycemia SNOMED Code(s): 26883517 (8) Hypothyroidism Status: Acute Qualifiers: Qualified Code(s): E03.9 - Hypothyroidism, unspecified SNOMED Code(s): 57037501 (9) Right leg weakness Status: Acute Etiology unclear. BUE and BLE strengths 10/25. Neurology consult pending. SNOMED Code(s): 393655264 - Recommendations Recommendations: Continue IV vancomycin and oral rifampin Continue weekly CBC, BMP, LFTs, ESR, CRP and vancomycin trough Follow-up with Gauri in 2 weeks Kaylee scott DC from infectious disease perspective Consult Discharge Plan - Plan Referrals: Walter Merino MD [Primary Care Provider] - Gauri Olivera SERVICES EXECUTIVE [Advanced Practice Nurse] - 11/18/18 3:05 pm Prescriptions: rifAMPin [Rifadin] 300 mg PO TID #42 capsule
--- NOTE | 2018-11-09 13:25 | Neurology Progress Note ---
<Garfield Perla J - Last Filed: 11/09/18 13:23> Date of Encounter: 11/09/18 Time of Encounter: 13:23 Assessment and Plan (1) Right leg weakness Current Visit: Yes Status: Acute Right leg weakness persists but is improving; she reports significant improvement overnight and has been ambulatory in the room this morning. Fluid collection was most likely the contributing factor to the right leg weakness. Should improve with ABX over time. Neurology will sign off. (2) Abscess, gluteal, right Current Visit: Yes Status: Acute Subjective Principal diagnosis: right hip pain Objective - Constitutional Vitals: Temp Pulse Resp BP Pulse Ox 97.6 F 104 17 130/69 97 11/09/18 11:20 11/09/18 11:20 11/09/18 11:20 11/09/18 11:20 11/09/18 11:20 Exam: Sensorimotor examination: Present: intact Motor examination - right side: 3/5: hip flexors, tibialis Anterior, 4/5: quadriceps, toe extension (EHL), plantarflexion, 5/5: deltoids, biceps, triceps, wrist flexion, wrist extension, fermentation manager Motor examination - left side: 4/5: quadriceps, tibialis Anterior, toe extension (EHL), plantarflexion, 5/5: deltoids, biceps, triceps, wrist flexion, wrist extension, hip flexors, fermentation manager Sensation intact: Present: intact Mental Status Examination: Present: A&Ox4, follows commands appropriately, answers questions appropriately Cranial nerve examination: Present: PERRL, EOMI, visual stallings intact, no facial asymmetry is present Cerebellar examination: Present: no dysmetria, no truncal ataxia - Neurological Exam Sensorimotor examination: Present: intact Motor examination - left side: 3/5: tibialis Anterior, 4/5: quadriceps, toe extension (EHL), plantarflexion, 5/5: deltoids, biceps, triceps, wrist flexion, wrist extension, hip flexors, fermentation manager Sensation intact: Present: intact Mental Status Examination: Present: awake, alert, oriented to person, oriented to place, oriented to time, follows commands appropriately, answers questions appropriately Cranial nerve examination: Present: PERRL, EOMI, visual stallings intact, no facial asymmetry is present Cerebellar examination: Present: no dysmetria, no truncal ataxia Results - Laboratory Findings CBC and BMP: 11/09/18 05:50 11/09/18 05:50 Abnormal lab findings: Abnormal lab results WBC 4.2 K/mcL (4.3-11.1) L 11/09/18 05:50 RBC 3.49 M/mcL (3.82-4.97) L 11/09/18 05:50 Hgb 9.0 g/dL (11.5-15.4) L 11/09/18 05:50 Hct 29.5 % (35.3-44.9) L 11/09/18 05:50 MCV 82.1 fL (83.0-100.0) L 11/07/18 03:51 MCH 25.8 pg (28.0-33.3) L 11/09/18 05:50 MCHC 30.5 g/dL (31.6-35.5) L 11/09/18 05:50 RDW 19.9 % (11.5-14.5) H 11/09/18 05:50 Plt Count 459 K/mcL (140-400) H 11/04/18 06:47 MPV 8.4 fL (9.4-12.4) L 11/09/18 05:50 ESR 124 mm/hr (0-15) H 11/07/18 03:51 PT 12.7 Seconds (9.4-12.1) H 11/03/18 08:12 Glucose 143 mg/dL (70-105) H 11/09/18 05:50 POC Glucose 110 mg/dL (70-99) H 11/08/18 16:22 7.5 % (-5.6) H 11/03/18 08:12 0.2 mg/dL (0.3-1.0) L 11/03/18 08:12 AST 11 Units/L (13-39) L 11/03/18 08:12 128 Units/L (34-104) H 11/03/18 08:12 76 mg/L (Less than 10) H 11/03/18 08:12 4.6 g/dL (2.4-3.5) H 11/03/18 08:12 0.9 (1.1-2.2) L 11/03/18 08:12 Fluid Appearance Cloudy (Clear) A 11/04/18 12:32 Vancomycin Trough 14 mcg/mL (5-10) H 11/07/18 20:00 Consult Discharge Plan - Plan Referrals: Walter Merino MD [Primary Care Provider] - Gauri Olivera CNP [Advanced Practice Nurse] - 11/18/18 3:05 pm <Yovani Lopez I - Last Filed: 11/09/18 16:05> Date of Encounter: 11/09/18 Assessment and Plan (1) Abscess, gluteal, right Current Visit: Yes Status: Acute (2) Right leg weakness Current Visit: Yes Status: Acute I have personally performed a face to face diagnostic evaluation, including HPI, EXAM, which is included in the Assesment and plan, which was discussed with Garfield Perla CNP, I agree with the above outlined documentation. Yovani Lopez MD. NeurologyI Objective - Constitutional Vitals: Temp Pulse Resp BP Pulse Ox 98.4 F 64 17 106/70 97 11/09/18 14:24 11/09/18 14:24 11/09/18 14:24 11/09/18 14:24 11/09/18 14:24 Results - Laboratory Findings CBC and BMP: 11/09/18 05:50 11/09/18 05:50 Abnormal lab findings: Abnormal lab results WBC 4.2 K/mcL (4.3-11.1) L 11/09/18 05:50 RBC 3.49 M/mcL (3.82-4.97) L 11/09/18 05:50 Hgb 9.0 g/dL (11.5-15.4) L 11/09/18 05:50 Hct 29.5 % (35.3-44.9) L 11/09/18 05:50 MCV 82.1 fL (83.0-100.0) L 11/07/18 03:51 MCH 25.8 pg (28.0-33.3) L 11/09/18 05:50 MCHC 30.5 g/dL (31.6-35.5) L 11/09/18 05:50 RDW 19.9 % (11.5-14.5) H 11/09/18 05:50 Plt Count 459 K/mcL (140-400) H 11/04/18 06:47 MPV 8.4 fL (9.4-12.4) L 11/09/18 05:50 ESR 124 mm/hr (0-15) H 11/07/18 03:51 PT 12.7 Seconds (9.4-12.1) H 11/03/18 08:12 Glucose 143 mg/dL (70-105) H 11/09/18 05:50 POC Glucose 110 mg/dL (70-99) H 11/08/18 16:22 7.5 % (-5.6) H 11/03/18 08:12 0.2 mg/dL (0.3-1.0) L 11/03/18 08:12 AST 11 Units/L (13-39) L 11/03/18 08:12 128 Units/L (34-104) H 11/03/18 08:12 76 mg/L (Less than 10) H 11/03/18 08:12 4.6 g/dL (2.4-3.5) H 11/03/18 08:12 0.9 (1.1-2.2) L 11/03/18 08:12 Fluid Appearance Cloudy (Clear) A 11/04/18 12:32 Vancomycin Trough 14 mcg/mL (5-10) H 11/07/18 20:00
--- NOTE | 2018-11-09 13:33 | Internal Med Progress Note ---
Hospitalist Progress Note - Encounter Date of Encounter: 11/09/18 Time of Encounter: 10:33 - Subjective Interval History: Weakness in the right hip improving but is still has some pain on ambulation. Reviewed the vitals and lab. Vomiting chest pain short of breath abdominal pain diarrhea - Exam Vitals: Temp Pulse Resp BP Pulse Ox 97.6 F 104 17 130/69 97 11/09/18 11:20 11/09/18 11:20 11/09/18 11:20 11/09/18 11:20 11/09/18 11:20 Exam: Gen.: Alert and oriented 3, appears anxious no scleral icterus Lungs: Clear to auscultation bilaterally, no rales, rhonchi, wheezes Cardiac S1, S2, no MRG Abdomen soft, NT, ND, no guarding or rebound Musculoskeletal: Right hip Mildly tender to palpation and slight limited range of motion due to pain. Groin-minimal erythema Neuro: No focal neurological deficit. 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 Fluid culture with no growth . Reviewed orthopedic note-Communicated with radiology to speak with radiologist re: comparison CT to confirm no acute changing appearance.- awaiting to hear back Continue vancomycin and rifampin for now. Made ID team aware about the discharge plan and antibiotic choice for the duration -awaiting to hear back Plan to discharge patient once cleared from ortho and ID per ID (2) Diabetes mellitus Current Visit: Yes Status: Chronic Assessment and Plan: Blood sugars under good control. Continue Accu-Chek sliding scale insulin coverage. Diabetic diet (3) Morbid obesity with BMI of 45.0-49.9, adult Current Visit: Yes Status: Chronic Assessment and Plan: Encourage weight loss. Life style modification (4) Right femoral fracture Current Visit: Yes Status: Ruled-out Assessment and Plan: Periprosthetic fracture which per orthopedic note was present previously. Further management per orthopedics. (5) Hypothyroidism Current Visit: Yes Status: Acute Assessment and Plan: Continue levothyroxine (6) Right leg weakness Current Visit: Yes Status: Acute Assessment and Plan: Patient on right leg weakness that appears to be mainly caused by pain of her hip. Neurologist was consulted , of note-Fluid collection was most likely the contributing factor to the right leg weakness. Should improve with ABX over time. Neurology signed off. (7) DVT prophylaxis Current Visit: Yes Status: Acute Assessment and Plan: heparin sc - Time Spent with Patient Total time spent is greater than 50% in coordination of care (as documented) at patient's floor/unit and/or counseling patient: 25 - 35 minutes Internal Medicine: Result - Labs CBC & Chem 7: 11/09/18 05:50 11/09/18 05:50 Labs: Short CBC 11/09/18 Range/Units 05:50 WBC 4.2 L (4.3-11.1) K/mcL Hgb 9.0 L (11.5-15.4) g/dL Hct 29.5 L (35.3-44.9) % Plt Count 311 (140-400) K/mcL BMP 11/09/18 05:50 Sodium 138 Potassium 3.7 Chloride 105 Carbon Dioxide 26 BUN 7 Creatinine 0.67 Glucose 143 H Calcium 8.9 - ABG Interpretation ABG results: PT/INR, D-dimer PT 12.7 Seconds (9.4-12.1) H 11/03/18 08:12 Consult Discharge Plan - Plan Referrals: Walter Merino MD [Primary Care Provider] - Gauri Olivera CNP [Advanced Practice Nurse] - 11/18/18 3:05 pm (1) Infection of right prosthetic hip joint Qualifiers: Encounter type: subsequent encounter Qualified Code(s): T84.51XD - Infection and inflammatory reaction due to internal right hip prosthesis, subsequent encou nter (2) Diabetes mellitus Qualifiers: Diabetes mellitus type: type 2 Diabetes mellitus longterm insulin use: without beater machine operator use Diabetes mellitus complication status: with hyperglycemia Qualified Code(s): E11.65 - Type 2 diabetes mellitus with hyperglycemia (4) Right femoral fracture Qualifiers: Encounter type: initial encounter Femur location: unspecified portion of femur Fracture type: closed Fracture morphology: unspecified fracture morphology Qualified Code(s): S72.91XA - Unspecified fracture of right femur, initial encounter for closed fracture (5) Hypothyroidism Qualifiers: Qualified Code(s): E03.9 - Hypothyroidism, unspecified
[2018-11-10] MEDS: *HR* Heparin 5,000 UNIT/ML VIAL SQ SCH (06:32)
[2018-11-10] MEDS: Insulin LISPRO 300 UNITS/3 ML VIAL SQ SCH ×2 (07:52→11:44)
[2018-11-10] MEDS: Aspirin Enteric Coated 81 MG Tablet PO SCH (07:53)
[2018-11-10] MEDS: rifAMPin 150 MG CAPSULE PO SCH (07:54)
[2018-11-10] MEDS: Nystatin Cream 15 GM TUBE TP SCH (07:54)
[2018-11-10] MEDS: Gabapentin 300 MG CAPSULE PO SCH (07:54)
[2018-11-10] MEDS: Cholecalciferol (D-3) 1,000 UNIT TABLET PO SCH (07:54)
--- NOTE | 2018-11-10 08:09 | Discharge Summary ---
- NOTES TO OUTPATIENT PROVIDER Notes to Outpatient Provider: Follow-up with PCP in 3-5 days-Continue weekly CBC, BMP, LFTs, ESR, CRP and vancomycin trough. Follow with ID specialist in 2 weeks. Follow with orthopedic patient in one week-dressing change instruction as advised. Continue home health care Orders not resulted at time of discharge: Pending orders 11/04/18 12:32 AFB Culture, Body Fluid [TB] Routine AFB Smear [TB] Routine Fungal Culture [MYC] Routine Date of Encounter: 11/10/18 Time of Encounter: 08:06 - Discharge Diagnosis (1) Infection of right prosthetic hip joint Priority: Primary Status: Chronic Assessment and Plan: Status post CT-guided aspiration of right hip fluid collection preliminary fluid analysis shows high total nucleated cell count with 82% segmented neutrophils. Fluid culture with no growth . For greater discharged from orthopedic and ID with outpatient follow-up as mentioned. Continue IV vancomycin and oral rifampin for 2 weeks Continue weekly CBC, BMP, LFTs, ESR, CRP and vancomycin trough Qualifiers: Encounter type: subsequent encounter Qualified Code(s): T84.51XD - Infection and inflammatory reaction due to internal right hip prosthesis, subsequent encounter (2) Diabetes mellitus Priority: Secondary Status: Chronic Assessment and Plan: Blood sugars under good control. Continue home medicine Qualifiers: Diabetes mellitus type: type 2 Diabetes mellitus terminal operations manager insulin use: without terminal operations manager use Diabetes mellitus complication status: with hypergl ycemia Qualified Code(s): E11.65 - Type 2 diabetes mellitus with hyperglycemia (3) Morbid obesity with BMI of 45.0-49.9, adult Priority: Secondary Status: Chronic Assessment and Plan: Encourage weight loss. Life style modification (4) Right femoral fracture Priority: Secondary Status: Ruled-out Assessment and Plan: Periprosthetic fracture which per orthopedic note was present previously. Further management per orthopedics. Qualifiers: Encounter type: initial encounter Femur location: unspecified portion of femur Fracture type: closed Fracture morphology: unspecified fracture morphology Qualified Code(s): S72.91XA - Unspecified fracture of right femur, initial encounter for closed fracture (5) Hypothyroidism Priority: Secondary Status: Acute Assessment and Plan: Continue levothyroxine Qualifiers: Qualified Code(s): E03.9 - Hypothyroidism, unspecified (6) Right leg weakness Priority: Primary Status: Acute Assessment and Plan: Patient on right leg weakness that appears to be mainly caused by pain of her hip. Neurologist was consulted , of note-Fluid collection was most likely the contributing factor to the right leg weakness. Should improve with ABX over time. Neurology signed off. Hospital course: Ms. Green is a 48 year old female patient got admitted for right hip pain is status post CT guided fluid aspiration. Consulted ID and neurology. Please see detail in diagnosis section of discharge summary. At the time of discharge patient clinically hemodynamically stable and ambulating. Pain is reasonably well controlled therefore will continue home medicine Percocet. Okay to discharge from ID ortho and neurology. Keep follow- up appointment with with them Discharge discussed with: patient, nurse, social work, product safety consultant - Time Spent with Patient Total time spent providing and/or coordinating discharge services: Time spent: Less than 30 minutes - Discharge Medications Prescriptions: New Nystatin Cream [Mycostatin Cream] 1 appl TP BID tube rifAMPin [Rifadin] 300 mg PO TID #42 capsule Continued Albuterol Sulfate [Proair Hfa] 1 puff IH Q4H PRN PRN Reason: Shortness Of Breath Escitalopram [Lexapro] 20 mg PO DAILY Levothyroxine Sodium [Levo-T] 200 mcg PO DAILY Simvastatin [Zocor] 20 mg PO HS Cyclobenzaprine [Flexeril] 10 mg PO TID Ergocalciferol (VITAMIN D2) [Vitamin D2] 50,000 unit PO MO Furosemide [Lasix] 20 mg PO DAILY GlipiZIDE [Glipizide Xl] 5 mg PO DAILY Oxycodone HCl/Acetaminophen [Percocet 5-325 mg Tablet] 1 tab PO TID PRN PRN Reason: Pain Liraglutide [Victoza 2-Maximiliano] 0.6 mg SQ DAILY Gabapentin [Neurontin] 600 mg PO TID Aspirin [Adult Aspirin] 81 mg PO DAILY Vancomycin [Vancocin (wt based)] 2,000 mg IV Q12H #84 vial Amitriptyline [Elavil] 25 mg PO HS Celecoxib [Celebrex] 100 mg PO DAILY Pantoprazole Sodium [Protonix] 40 mg PO DAILY Home Medications: Albuterol Sulfate [Proair Hfa] 1 puff IH Q4H PRN 11/02/15 [History] Escitalopram [Lexapro] 20 mg PO DAILY 08/23/16 [History] Levothyroxine Sodium [Levo-T] 200 mcg PO DAILY 08/23/16 [History] Simvastatin [Zocor] 20 mg PO HS 06/12/17 [History] Cyclobenzaprine [Flexeril] 10 mg PO TID 06/17/18 [History] Ergocalciferol (VITAMIN D2) [Vitamin D2] 50,000 unit PO MO 06/17/18 [History] Furosemide [Lasix] 20 mg PO DAILY 06/17/18 [History] GlipiZIDE [Glipizide Xl] 5 mg PO DAILY 06/17/18 [History] Oxycodone HCl/Acetaminophen [Percocet 5-325 mg Tablet] 1 tab PO TID PRN 06/17/18 [History] Aspirin [Adult Aspirin] 81 mg PO DAILY 07/16/18 [History] Gabapentin [Neurontin] 600 mg PO TID 07/16/18 [History] Liraglutide [Victoza 2-Maximiliano] 0.6 mg SQ DAILY 07/16/18 [History] Vancomycin [Vancocin (wt based)] 2,000 mg IV Q12H #84 vial 10/12/18 [Rx] Amitriptyline [Elavil] 25 mg PO HS 11/03/18 [History] Celecoxib [Celebrex] 100 mg PO DAILY 11/03/18 [History] Pantoprazole Sodium [Protonix] 40 mg PO DAILY 11/03/18 [History] Nystatin Cream [Mycostatin Cream] 1 appl TP BID tube 11/10/18 [Rx] rifAMPin [Rifadin] 300 mg PO TID #42 capsule 11/10/18 [Rx] Allergies/Adverse Reactions: Allergy/AdvReac Type Severity Reaction Status Date / Time hydromorphone [From Dilaudid] AdvReac Nausea Verified 10/07/18 11:40 meperidine [From Demerol] AdvReac vomiting,fever, Verified 10/07/18 11:40 convulsions methimazole AdvReac swelling Verified 10/07/18 11:40 legs Date of admission: 11/03/18 08:24 Primary care physician: Walter Merino MD Consults: 11/03/18 06:48 Consult to Orthopedic Surgery [CONS] Stat Consulting Provider: [facility] Reason for Consult: prostethic femur fracutre Time Notified: 06:48 Call Completed: Yes 11/03/18 08:01 Consult to Infectious Diseases [CONS] Routine Consulting Provider: Infectious Disease [place] Reason for Consult: infected prosthetic hip joint Call Completed: No 11/03/18 15:33 Consult to Psychiatry [CONS] Routine Consulting Provider: Psychiat[facility] Reason consult: Other Other reason and/or additional details: depression 11/03/18 17:06 Consult to Interventional Radiology [CONS] Routine Consulting Provider: Radiology [facility] Reason for Consult: right hip fluid collection and sudden onset right hip pain in setting of history of bacteremia and prosthetic joint infection Time Notified: 17:07 Call Completed: Yes 11/05/18 14:02 Consult to Physical Therapy [CONS] Routine Comment: Evaluate, develop and implement POC Reason for Consult: weakness Does patient have active BEDREST order?: No Is patient medically & hemodynamically stable?: Yes Patient assessed for mobility or mobilized this visit?: No 11/06/18 11:19 Consult to Neurology [CONS] Routine Consulting Provider: Neurology [facility] Reason for Consult: R leg weakness Call Completed: Yes - Constitutional Vitals: Temp Pulse Resp BP Pulse Ox 98.4 F 109 16 132/89 95 11/10/18 07:08 11/10/18 07:08 11/10/18 07:08 11/10/18 07:08 11/10/18 07:08 Exam: Gen.: Alert and oriented 3 no scleral icterus Lungs: Clear to auscultation bilaterally, no rales, rhonchi, wheezes Cardiac S1, S2, no MRG Abdomen soft, NT, ND, no guarding or rebound Musculoskeletal: Right hip Mildly tender to palpation and slight limited range of motion due to pain. Neuro: No focal neurological deficit. Grossly intact - Patient Status Disposition: Home Health Service Condition: Good Overall status at discharge: patient is progressing back to baseline - Discharge Instructions Follow Up With: Walter Merino MD [Primary Care Provider] - Gauri Olivera CNP [Advanced Practice Nurse] - 11/18/18 3:05 pm - Diet and Activity Activity: as per physical therapy Diet: diabetic diet, low fat, low cholesterol, low salt diet
[2018-11-10] MEDS ORDERED: *HR* Alteplase (Cathflo) 2 MG VIAL IVP ONE (08:42)
[2018-11-10 10:54] VITALS: BP 126/74
--- NOTE | 2018-11-10 11:04 | Infectious Disease Progress No ---
ID Progress Note Date of Encounter: 11/10/18 Time of Encounter: 10:15 - Subjective Subjective: Patient seen and examined. No acute events noted overnight. Patient states right hip pain and right leg weakness improved. She denies numbness or tingling and has full ROM/strength of the bilateral feet. Denies fevers, chills, or rigors. Denies chest pain, shortness of breath, or cough. Denies nausea, vomiting, diarrhea, or constipation. Denies abdominal pain or urinary complai nts. No oral thrush or skin lesions noted. Reports some genital itching and states she thinks she is getting a yeast infection. States her appetite is okay. States she wants to go home but was told she has to receive her 1900 dose of Vanc before she discharges. - Objective CBC & Chem 7: 11/09/18 05:50 11/09/18 05:50 - Exam Vitals: Temp Pulse Resp BP Pulse Ox 97.9 F 106 16 126/74 96 11/10/18 10:45 11/10/18 10:45 11/10/18 10:45 11/10/18 10:45 11/10/18 10:45 Exam: Head: Atraumatic, normal inspection, normocephalic. Eye: EOMI, PERRLA, no scleral icterus noted. ENT: Mucous membranes moist. No odontogenic infection noted. Neck: Normal inspection, no meningismus. Respiratory: Clear to auscultation. No rales, respiratory distress, rhonchi, or wheezes noted. Cardiovascular: Regular rate and rhythm, S1 and S2 audible. No murmurs, rubs, or gallops. GI: Soft, nondistended, normal bowel sounds. Extremities: No joint swelling, pedal edema, or tenderness noted. Right hip surgical sites well-healed without drainage, erythema, or warmth. Small scabbed lesion noted above the surgical incision (previous drain site). No surrounding erythema, warmth, tenderness, or drainage. Neurological: Alert, oriented 3, no focal deficits. BUE and BLE strength 5/5. + PMS to all extremities x 4. Psychiatric: normal affect, normal mood. Skin: Dry, intact, warm. Normal color. No rashes. 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 Causative organism: MRSA Likely secondary to recent surgical procedure and nonhealing of the wound. No imaging of the hip was completed preop. Cultures obtained of the purulent drainage prior to surgery were positive for MRSA. Status post right hip irrigation and debridement 10/07/18. There was dehiscence noted in the fascia that went all the way down to the joint space, but no purulence was noted Intra-Op. Intra-Op cultures were positive for MRSA. Completed almost 4 weeks of Vanc and Rifampin. ESR remains elevated at >130, but CRP improved. CT of the right hip 11/03/18 shows a complex fluid collection 4.6 x 8.6 m highly concerning for abscess extending to communicate with the joint line. Interventional radiology consulted. Status post CT-guided aspiration and drain placement in the right hip fluid collection. TNC high with mostly neutrophils. Culture is negative. Etiology of fluid collection unclear: sterile abscess vs. post-op seroma. Repeat CT of the pelvis 11/07/18 shows minimal improvement. Drain removed 11/07/18 due to no output. Currently on vancomycin and rifampin. Qualifiers: Encounter type: subsequent encounter Qualified Code(s): T84.51XD - Infection and inflammatory reaction due to internal right hip prosthesis, subsequent encounter SNOMED Code(s): 634205438, 365947336 (2) Right femoral fracture Current Visit: Yes Status: Ruled-out Ruled out. Right hip XR shows findings concerning for periprosthetic femur fracture. Orthopedics consulted. CT scan of the right hip negative for acute fracture. Qualifiers: Encounter type: initial encounter Femur location: unspecified portion of femur Fracture type: closed Fracture morphology: unspecified fracture morphology Qualified Code(s): S72.91XA - Unspecified fracture of right femur, initial encounter for closed fracture SNOMED Code(s): 85866180 (3) Status post revision of total hip Current Visit: No Status: Chronic June 2018-right revision femoral component total hip, ORIF periprosthetic femur fracture. SNOMED Code(s): 357536745, 361502574, 500579335, 221444604 (4) Status post total hip replacement, right Current Visit: No Status: Chronic Robotic total hip replacement 06/17/18. SNOMED Code(s): 046064411494, 999903531650 (5) TANISHA (obstructive sleep apnea) Current Visit: No Status: Chronic SNOMED Code(s): 48353031 (6) COPD (chronic obstructive pulmonary disease) Current Visit: No Status: Chronic Qualifiers: COPD type: unspecified COPD Qualified Code(s): J44.9 - Chronic obstructive pulmonary disease, unspecified SNOMED Code(s): 92751874 (7) Diabetes mellitus Current Visit: Yes Status: Chronic Recommend aggressive glucose monitoring and control to promote wound healing and prevent reinfection. Management per the primary team. Qualifiers: Diabetes mellitus type: type 2 Diabetes mellitus fci insulin use: without intermodal dispatcher use Diabetes mellitus complication status: with hyperglycemia Qualified Code(s): E11.65 - Type 2 diabetes mellitus with hyperglycemia SNOMED Code(s): 33223433 (8) Hypothyroidism Current Visit: Yes Status: Acute Qualifiers: Qualified Code(s): E03.9 - Hypothyroidism, unspecified SNOMED Code(s): 08506342 (9) Right leg weakness Current Visit: Yes Status: Acute Etiology unclear. BUE and BLE strengths 10/25. Neurology consulted. Appreciate recommendations. Improved. SNOMED Code(s): 321160676 - Recommendations Recommendations: Activity and wound care per the ortho team. Continue vancomycin IV. Pharmacy to dose. Goal trough ~15. Continue rifampin 300mg PO TID. Duration of treatment depends on the clinical picture. We will follow inflammatory markers and clinical status closely. Will plan to prolong IV antibiotics for an additional two weeks and repeat CT scan to evaluate fluid collection before determining duration of treatment. I am concerned that because there was minimal change in the fluid collection despite drain placement that the antibiotics will not be able to penetrate if this is an infectious source. Monitor renal and liver function and dose-adjust antibiotics. Continue weekly CBC, BUN/Cr, ESR, CRP, Vanc trough, and LFTs. Continue weekly PICC care per protocol. Follow up with ID 11/18/18 at 1505. Consult Discharge Plan - Plan Referrals: Walter Merino MD [Primary Care Provider] - Gauri Olivera CNP [Advanced Practice Nurse] - 11/18/18 3:05 pm Prescriptions: rifAMPin [Rifadin] 300 mg PO TID #42 capsule
--- NOTE | 2018-11-10 11:25 | Orthopedics Progress Note ---
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 Patient to follow up outpatient within 7 days of discharge with orthopedics. Patient verbalizes understanding. 11/09: Discussed that since she has been on IV abx we need to await culture results to verify no new bacteria or antibiotic resistance. Patient verbalized understanding however states she is looking forward to going home as she has been here nearly a week. Patient seen by Neurology for eval of sudden onset right leg weakness - awaiting MRI lumbar spine - at this time they concur that fluid collection may have been contributing to her sudden onset weakness and pain. Patient noted to be rapidly improving and thus far culture results are negative. Communicated with Gauri with ID - awaiting their reevaluation today Communicated with radiology to speak with radiologist re: comparison CT to confirm no acute changing appearance. Dr. Mchugh aware of the above and verbalizes agreement to plan Patient to follow up outpatient within 7 days of discharge with orthopedics. Patient verbalizes understanding. History: Ms. Green is a 48 year old female well known to [facility]. Patient presented to ED for evaluation after sitting onto commode last night and per patient felt a "pop" to the hip region and subsequently developed significant right hip/groin pain with significant pain with weight bearing. Patient states that she is sure something is wrong with her hip as she states it feels similar to when she fell causing a periprosthetic fracture in 06/2018. She admits to most significantly groin pain with radiation to the right labia. She admits to significant pain in the anterior hip and groin with weightbearing. Denies pain in buttocks or posterior incision. Denies drainage from incision. Denies headache, chest pain, shortness of breath, or new numbness/tingling. Patient has a complex history with recent admission and surgery in mid-September 2018 after she presented to outpatient [facility] office on 10/05 with complaints of right hip pain. Upon obtaining xray films, mariely pus and fluid drainage began expressing from right hip incision at pinhole site per record. Patient was direct admitted to hospitalist team 10/05 with plan for orthopedic intervention. Patient left A on 4/16 for concerns regarding her home status, however, patient was in contact with [facility] office and returned for surgical irrigation and debridement of draining right hip on 10/07. Intraop findings demonstrated 4 cm dehiscence of the fascia with no mariely purulence noted. Extensive debridement performed by Dr. Mchugh with avoidance of dislocation of the hip based on the patient's complicated history of a fall in the postop window sustaining a periprosthetic femur fracture requiring right hip revision with femur orif on 07/16/18 following her initial hip replacement performed on 06/17/18. Patient also found to have MRSA bacteremia from blood cultures performed on initial admission 10/05/18. Intraoperative cultures resulted to finding of MRSA Hospitalist team was then consulted for assistance with medical management. Infectious disease was consulted and patient had PICC placement following negative repeat blood cultures and negative findings on KELLY/TTE Patient discharged home with home health services with antibiotic orders of PO Levaquin, PO Rifampin, IV Vancomycin (Goal trough 15) on 10/12/18 and has been on Vanc and Rifampin since and denies missing any doses. Qualifiers: Encounter type: subsequent encounter Qualified Code(s): T84.51XD - Infect ion and inflammatory reaction due to internal right hip prosthesis, subsequent encounter (2) Right groin pain Status: Acute (3) Right hip pain Status: Acute (4) Status post revision of total hip Status: Chronic (5) Status post total hip replacement, right Status: Chronic Subjective Principal diagnosis: right hip pain Interval history: Patient had CT guided aspiration with RODNEY drain placement on 11/04 RODNEY Drain removed 11/06 Patient noted to have had MRI lumbar spine 11/06 --> revealing degenerative changes with no stenosis noted to explain her sudden onset of symptoms. MR/MR lumbar spine wo con IMPRESSION: Multilevel degenerative disc disease as described above, exacerbating congenitally narrow lumbar spinal canal. Spinal canal narrowing, mild at L3-4. Foraminal narrowing, moderate at left L5-S1, mild at right L5-S1, minimal at left L4-5. D/ / Kevin Miller MD / Kevin Miller MD Patient also had CT pelvis performed on 11/07 revealing ongoing fluid collection now measuring 5.5x5.1cm down from 4.6x8.6cm on 11/03: CT/CT pelvis w iv no oral IMPRESSION: 1. Redemonstration of abscess in the gluteal region lateral to the right hip. Overall, no significant change. Stable infiltration of the subcutaneous fat. Inguinal adenopathy, likely reactive and stable compared to the recent CT. 2. Otherwise unremarkable CT of the pelvis. Previous hysterectomy. Colonic diverticulosis with no acute features. D/ / 11/07/2018 15:45:44 Claudio Bose MD / Lee Ann Grullon Patient seen in [facility] while wheeling out to car to go home Patient doing well Denies concerns/complaints. Patient to follow up outpatient within 7 days of discharge with orthopedics. Patient verbalizes understanding. Objective Vital signs: Vital Signs Temp Pulse Resp BP Pulse Ox 11/10/18 10:45 97.9 F 106 16 126/74 96 11/10/18 07:08 98.4 F 109 16 132/89 95 11/10/18 04:05 98.1 F 109 16 148/85 95 11/09/18 20:44 97.8 F 101 15 142/84 95 11/09/18 14:24 98.4 F 64 17 106/70 97 Intake and Output 11/09/18 11/10/18 11/10/18 23:59 07:59 15:59 Intake Total 360 / 1580 0 / 490 490 / 490 Output Total 1999 Balance 360 / -20 -2000 / -1510 490 / -1510 Intake: IV Fluids 250 / 250 Vancocin 1,250 MG In 0.9 % 250 / 250 Sodium Chloride 250 ML @ 166. 667 mls/hr IVPB Q12H [facility] Rx#: [id number] Oral 360 / 1080 0 / 240 240 / 240 Output: Urine 1999 Other: Meal Dinner Breakfast Percent of Meal Consumed 100% 100% Stool Size Moderate Moderate Stool Consistency formed formed Stool Color Brown Brown # Voids 2 2 # Bowel Movements 1 1 Weight 130.6 kg Blood Glucose* 100 148 Patient Weight 11/10/18 23:59 Weight 130.6 kg - Labs CBC & BMP: 11/09/18 05:50 11/09/18 05:50 Labs: Abnormal lab results WBC 4.2 K/mcL (4.3-11.1) L 11/09/18 05:50 RBC 3.49 M/mcL (3.82-4.97) L 11/09/18 05:50 Hgb 9.0 g/dL (11.5-15.4) L 11/09/18 05:50 Hct 29.5 % (35.3-44.9) L 11/09/18 05:50 MCV 82.1 fL (83.0-100.0) L 11/07/18 03:51 MCH 25.8 pg (28.0-33.3) L 11/09/18 05:50 MCHC 30.5 g/dL (31.6-35.5) L 11/09/18 05:50 RDW 19.9 % (11.5-14.5) H 11/09/18 05:50 Plt Count 459 K/mcL (140-400) H 11/04/18 06:47 MPV 8.4 fL (9.4-12.4) L 11/09/18 05:50 ESR 124 mm/hr (0-15) H 11/07/18 03:51 PT 12.7 Seconds (9.4-12.1) H 11/03/18 08:12 Glucose 143 mg/dL (70-105) H 11/09/18 05:50 POC Glucose 110 mg/dL (70-99) H 11/08/18 16:22 7.5 % (-5.6) H 11/03/18 08:12 0.2 mg/dL (0.3-1.0) L 11/03/18 08:12 AST 11 Units/L (13-39) L 11/03/18 08:12 128 Units/L (34-104) H 11/03/18 08:12 76 mg/L (Less than 10) H 11/03/18 08:12 4.6 g/dL (2.4-3.5) H 11/03/18 08:12 0.9 (1.1-2.2) L 11/03/18 08:12 Fluid Appearance Cloudy (Clear) A 11/04/18 12:32 Vancomycin Trough 13 mcg/mL (5-10) H 11/10/18 04:17 Consult Discharge Plan - Plan Referrals: Walter Merino MD [Primary Care Provider] - Gauri Olivera CNP [Advanced Practice Nurse] - 11/18/18 3:05 pm Prescriptions: rifAMPin [Rifadin] 300 mg PO TID #42 capsule
--- NOTE | 2018-11-10 11:25 | Physician Discharge Referral ---
Home Health/Hosp Referral Info Transfer to: Home Health - Diagnosis (1) Infection of right prosthetic hip joint Priority: Primary Status: Chronic (2) Diabetes mellitus Priority: Secondary Status: Chronic (3) Morbid obesity with BMI of 45.0-49.9, adult Priority: Secondary Status: Chronic (4) Right femoral fracture Priority: Secondary Status: Ruled-out (5) Hypothyroidism Priority: Secondary Status: Acute (6) Right leg weakness Priority: Primary Status: Acute - Respiratory Orders Smoking Cessation: Smoking cessation has been advised. For more information, call the [place] Tobacco Quit Line at 5-478-AZZE-NOW. - Services Needed Following services are medically necessary services: Nursing, Physical Therapy, Occupational Therapy, Home Infusion - Transfer Medications Prescriptions: rifAMPin [Rifadin] 300 mg PO TID #42 capsule Home Medications: Albuterol Sulfate [Proair Hfa] 1 puff IH Q4H PRN 11/02/15 [History] Escitalopram [Lexapro] 20 mg PO DAILY 08/23/16 [History] Levothyroxine Sodium [Levo-T] 200 mcg PO DAILY 08/23/16 [History] Simvastatin [Zocor] 20 mg PO HS 06/12/17 [History] Cyclobenzaprine [Flexeril] 10 mg PO TID 06/17/18 [History] Ergocalciferol (VITAMIN D2) [Vitamin D2] 50,000 unit PO MO 06/17/18 [History] Furosemide [Lasix] 20 mg PO DAILY 06/17/18 [History] GlipiZIDE [Glipizide Xl] 5 mg PO DAILY 06/17/18 [History] Oxycodone HCl/Acetaminophen [Percocet 5-325 mg Tablet] 1 tab PO TID PRN 06/17/18 [History] Aspirin [Adult Aspirin] 81 mg PO DAILY 07/16/18 [History] Gabapentin [Neurontin] 600 mg PO TID 07/16/18 [History] Liraglutide [Victoza 2-Maximiliano] 0.6 mg SQ DAILY 07/16/18 [History] Vancomycin [Vancocin (wt based)] 2,000 mg IV Q12H #84 vial 10/12/18 [Rx] Amitriptyline [Elavil] 25 mg PO HS 11/03/18 [History] Celecoxib [Celebrex] 100 mg PO DAILY 11/03/18 [History] Pantoprazole Sodium [Protonix] 40 mg PO DAILY 11/03/18 [History] Nystatin Cream [Mycostatin Cream] 1 appl TP BID tube 11/10/18 [Rx] rifAMPin [Rifadin] 300 mg PO TID #42 capsule 11/10/18 [Rx] Allergies/Adverse Reactions: Allergy/AdvReac Type Severity Reaction Status Date / Time hydromorphone [From Dilaudid] AdvReac Nausea Verified 10/07/18 11:40 meperidine [From Demerol] AdvReac vomiting,fever, Verified 10/07/18 11:40 convulsions methimazole AdvReac swelling Verified 10/07/18 11:40 legs Certification: Further, I certify that my clinical findings support that this patient is homebound (i.e. absences from home require considerable and taxing effort and are for medical reasons or mormonism services or infrequently or short duration when for other reasons) because: Homebound Reason: Patient requires assistance of a person or device to safely leave home Attestation: My signature below is to certify that this patient is under my care and that I, or nurse practitioner, or a physician's marketing communications assistant working with me, has a [id number] encounter with this patient.
== END 2018-11-10 12:15 | disposition home health service (06) | DRG 560 ==
LOC: EMEROOARM 04:54 → SUATTDRO 08:24 → 2SOUTHHOLD 08:24 → 3ANU 17:15
PROVIDERS: ADMIT Student in an Organized Health Care Education/Training Program; ATTEND Internal Medicine
PROC: IRDRAIN (2018-11-04 12:00)